=== PATIENT | male | born 1980 | race Caucasian/White ===

== ENCOUNTER 2020-01-21 07:51 | Outpatient (CLI) | payer SELFPAY ==
--- NOTE | 2020-01-21 | US_ITS ---
WS: [id number] ULTRASOUND ABDOMEN CLINICAL INFORMATION: ACQUIRED THROMBOCYTOPENIA COMPARISON: None. FINDINGS: Liver Size: Hepatomegaly Craniocaudal length: 17.2 cm. Echogenicity: Normal. Surface nodularity: None. Mass (size and location): None. Bile ducts Intrahepatic ducts: Normal. Common bile duct diameter: 0.5 cm. Gallbladder Sludge Gallstones: None. Gallbladder sludge: Present Gallbladder wall thickening: None. Pericholecystic fluid: None. Sonographic Skelton sign: Absent. Pancreas Normal as visualized. Spleen Splenomegaly: None. Craniocaudal length: 8.3 cm. Right kidney: Normal. Hydronephrosis: None. Size: 10.5 cm x 4.6 cm x 3.5 cm Left kidney: Normal. Hydronephrosis: None. Size: 10.2 cm x 4.1 cm x 4.1 cm. Abdominal aorta and IVC Visualized portions are normal. Ascites: None. US/US abdomen complete* [id number] IMPRESSION: 1. Hepatomegaly measuring 17.2 CCM. 2. Sludge within the gallbladder. Common bile duct within normal limits at 5.3 mm. 3. No hydronephrosis in either kidney. 4. Spleen is unremarkable.
== END 2020-01-21 07:52 | disposition home or self-care (01) ==
LOC: RADWPI 07:56
PROVIDERS: Family Provider Family Medicine; PCP Nurse Practitioner Family; Visit Provider Nurse Practitioner Family
DX: D69.6 Thrombocytopenia, unspecified (principal); R16.0 Hepatomegaly, not elsewhere classified
CPT/HCPCS: 76700

== ENCOUNTER 2020-01-26 12:35 | Emergency (ER) | payer SELFPAY ==
[2020-01-26 12:45] VITALS: BP 145/90; PULSE 64; RESP 16; TEMP 36.6; O2SAT 98; BMI 18.8
--- NOTE | 2020-01-26 12:49 | W.ED.NAVMDI ---
HPI - Nausea/Vomiting/Diarrhea General: Chief complaint: Nausea/Vomiting/Diarrhea Stated complaint: n/v/d Time Seen by Provider: 01/26/20 12:46 Source: patient Mode of arrival: ambulatory Limitations: no limitations History of Present Illness: HPI Narrative: 39-year-old male he states he ate [employer] last night and has had vomiting since this morning. He states he is vomited multiple episodes mainly food contents. He states he has had diarrhea as well along with abdominal cramping. Denies any fever. Denies any pain. Denies any worsening or improving factors. MD elicited complaint: nausea, vomiting and diarrhea Associated nausea: Yes Associated symtoms: Reports nausea; Denies chest pain, dysuria or headache(s) Review of Systems Const: Denies: fever, chills, body aches or change in appetite Eyes: Denies: blurry vision or eye discomfort ENMT: Denies: throat pain or dental pain Card: Denies: chest pain Resp: Denies: shortness of breath GI: Reports: nausea, vomiting and diarrhea; Denies: abdominal pain : Denies: painful urination Musc: Denies: neck pain or back pain Skin/Breast: Denies: rash Neuro: Denies: headache Psych: Denies: depression Curt/Lymph: Denies: easy bruising All/Imm: Denies: hives PFSH ED PFSH: Social History Smoking and tobacco status: current every day smoker Physical Exam Const: COMMON NORMALS: no apparent distress, oriented x3 and healthy appearing HENMT: COMMON NORMALS: normocephalic and head/scalp atraumatic HEAD & SCALP: normocephalic and atraumatic Eye: COMMON NORMALS: PERRL and EOMs intact bilaterally PUPIL: Yes PERRL Neck/C-Spine: COMMON NORMALS: full ROM and supple Chest: COMMONS NORMALS: inspection of chest normal and palpation of chest normal Resp: COMMON NORMALS: normal respiratory effort, no retractions, no use of accessory muscles and clear to auscultation bilaterally AUSCULTATION: clear to auscultation bilaterally Cardio: COMMON NORMALS: regular rate, regular rhythm and no murmurs RATE: regular rate RHYTHM: regular rhythm GI: COMMON NORMALS: normal to inspection, nondistended, normoactive bowel sounds, soft to palpation, non-tender and no masses PALPATION: Yes soft Extremity: COMMON NORMALS: normal to inspection and full ROM Neuro: COMMON NORMALS: oriented x3, moves all extremities and no focal motor deficits Psych: COMMON NORMALS: mental status grossly normal, thought process normal and cooperative THOUGHT PROCESS: normal thought process Skin: COMMON NORMALS: no rashes or lesions noted and no wounds GENERAL SKIN EXAM: no rashes or lesions noted Course Vital Signs: Vital signs: Vital Signs Temperature 97.9 F 01/26/20 12:45 Pulse Rate 49 L 01/26/20 14:50 Respiratory Rate 16 01/26/20 14:50 Blood Pressure 138/80 01/26/20 14:50 Pulse Oximetry 97 01/26/20 14:50 MDM - Nausea/Vomiting/Diarrhea MDM Narrative: Medical decision making narrative: Patient presents here with nausea and vomiting likely food poisoning. Patient CT scan here is negative. Patient feels improved after IV fluids. His leukocytosis is likely due to dehydration from vomiting. Will prescribe him Zofran he is to follow-up with his primary care doctor in 2 to 4 days and return if worsening. Lab Data: Labs: Lab Results 01/26/20 01/26/20 Range/Units 13:09 13:09 WBC 18.2 H (4.0-10.0) 10^3/ uL RBC 5.08 (4.1-5.3) 10^6/u L Hgb 16.2 (11.7-16.6) g/dL Hct 49.0 (42.0-52.0) % MCV 96.5 H (80-94) fL MCH 31.9 (28.0-34.0) pg MCHC 33.1 (30.0-36.0) g/dL RDW 12.8 (12.1-15.1) % Plt Count 220 (130-400) 10^3/c mm MPV 10.7 H (7.4-10.4) fL Neut % (Auto) 90.8 % Lymph % (Auto) 5.3 % [place] % (Auto) 3.2 % Eos % (Auto) 0.0 % Baso % (Auto) 0.3 % Neut # (Auto) 16.6 H (1.8-7.7) 10^3/u L Lymph # (Auto) 1.0 (0.8-4.8) 10^3/u L [place] # (Auto) 0.6 (0.2-0.9) 10^3/u L Eos # (Auto) 0.0 (0.0-0.8) 10^3/u L Baso # (Auto) 0.1 (0.0-0.1) 10^3/u L Nucleated RBC % (a uto) 0 % Nucleated RBCs # 0.0 /100WBC Sodium 142 (136-145) mmol/L Potassium 4.0 (3.5-5.1) mmol/L Chloride 102 (98-107) mmol/L Carbon Dioxide 24 (22-29) mmol/L Anion Gap 20.0 H (5-19) BUN 15 (6-20) mg/dL Creatinine 0.9 (0.7-1.2) mg/dL GFR Calculation 95.0 (90-130) mL/min Glucose 168 H (65-115) mg/dL Calculated Osmolal ity 294 (285-295) mOsm/k g Calcium 10.5 (8.5-10.5) mg/dL Total Bilirubin 0.4 (0.15-1.2) mg/dL AST 26 (0-40) U/L ALT 24 (0-41) U/L Alkaline Phosphata se 62 (40-130) IU/L Total Protein 7.7 (6.6-8.7) g/dL Albumin 4.9 (3.5-5.2) g/dL Globulin 2.8 (1.3-4.6) g/dL Lipase 11 L (13-60) U/L Imaging Data^: CT Abd/Pel: Radiologist's impression: [address] [address] [address] Scan Report Signed Patient: Jose G Pedraza Unit #: [id number] : 1980 Age/Sex: 39 / M ADM Date: 01/26/20 Loc: ER Room/Bed: Attending Dr: Ordering Provider/Ordering MD: Kailyn Resendez MD Date of Service: 01/26/20 Procedure(s): CT abdomen pelvis w con* [id number] Accession Number(s): [id number] Report Number: [id number] PROCEDURE INFORMATION: Exam: CT Abdomen And Pelvis With Contrast Exam date and time: 01/26/2020 2:01 PM Age: 39 years old Clinical indication: Abdominal pain; Localized; Patient HX: C/O upper abd pain w n/v/d today TECHNIQUE: Imaging protocol: Computed tomography of the abdomen and pelvis with intravenous contrast. Total DLP: 468.77 mGy-cm Radiation optimization: All CT scans at this facility use at least one of these dose optimization techniques: automated exposure control; mA and/or kV adjustment per patient size (includes targeted exams where dose is matched to clinical indication); or iterative reconstruction. Contrast material: OMNI 300; Contrast volume: 95 ml; Contrast route: 18G; COMPARISON: CT abdomen pelvis w con* [id number] 06/24/2017 11:10 AM FINDINGS: Lungs: 4 mm pulmonary nodule in the right lower lobe which appears stable since June 24, 2017. Axial series 2, image 4. No followup needed. Liver: Mild periportal edema with differential diagnosis including but not limited to hepatitis, cholangitis, passive hepatic congestion or volume overload. Prominent inferior vena cava and hepatic veins suggesting possible volume overload versus passive hepatic congestion. Gallbladder and bile ducts: Normal. No calcified stones. No ductal dilation. Pancreas: Normal. No ductal dilation. Spleen: Normal. No splenomegaly. Adrenals: Normal. No mass. Kidneys and ureters: Continued minimal scar in the medial portion lower pole left kidney. Axial series 2, image 28. Stomach and bowel: Unremarkable. No obstruction. No mucosal thickening. Appendix: No evidence of appendicitis. Intraperitoneal space: Unremarkable. No free air. No significant fluid collection. Vasculature: Unremarkable. No abdominal aortic aneurysm. Lymph nodes: Unremarkable. No enlarged lymph nodes. Bladder: Unremarkable as visualized. Reproductive: Unremarkable as visualized. Bones/joints: Unremarkable. No acute fracture. Soft tissues: Unremarkable. CT/CT abdomen pelvis w con* [id number] IMPRESSION: 1. 4 mm pulmonary nodule in the right lower lobe which appears stable since June 24, 2017. Axial series 2, image 4. No followup needed. 2. Mild periportal edema with differential diagnosis including but not limited to hepatitis, cholangitis, passive hepatic congestion or volume overload. 3. Prominent inferior vena cava and hepatic veins suggesting possible volume overload versus passive hepatic congestion. Discharge Plan Discharge Patient Disposition: Home, Self-Care Clinical Impression: Vomiting Qualifiers: Vomiting Intractability: non-intractable Nausea presence: with nausea Condition: Stable Prescriptions: New Zofran 4 mg tablet 4 mg PO QID PRN (Reason: nausea and vomiting) Qty: 14 RF: 0 No Action alprazolam 0.5 mg tablet 0.5 mg PO TID PRN (Reason: Anxiety) RF: 0 paroxetine HCl 20 mg tablet 20 mg PO DAILY RF: 0 Discharge Orders: Discharge Order (Routine); Ordered 01/26/20 Ordered By: Kailyn Resendez Referrals: José Masterson MD [Family Provider] - Emily Hannah FNP-C [Primary Care Provider] - Discharge Diet: Advance as tolerated Discharge Activity: Resume usual activity Patient Instructions: Acute Nausea and Vomiting (ED) Coding Level of Care Code ED Instructor Extension Work for Kennedy Fwd Exam Comprehensive
[2020-01-26 13:18] LABS: Basophils # 0.1 10^3/uL (0.0-0.1); Basophils % 0.3 %; Hemoglobin 16.2 g/dL (11.7-16.6); Lymphocytes % 5.3 %; Mean Corpuscular HGB Conc 33.1 g/dL (30.0-36.0); Mean Corpuscular Hemoglobin 31.9 pg (28.0-34.0); Mean Corpuscular Volume 96.5 fL (80-94); Mean Platelet Volume 10.7 fL (7.4-10.4); Monocytes # 0.6 10^3/uL (0.2-0.9); Monocytes % 3.2 %; Neutrophils # 16.6 10^3/uL (1.8-7.7); Neutrophils % 90.8 %; Nucleated Red Blood Cells % 0 %; Platelet Count 220 10^3/cmm (130-400); Red Blood Count 5.08 10^6/uL (4.1-5.3); Red Cell Distribution Width 12.8 % (12.1-15.1); White Blood Count 18.2 10^3/uL (4.0-10.0)
[2020-01-26] MEDS: ondansetron 2 mg/ML SDV 2 mL 4 MG IVP (13:18)
[2020-01-26] MEDS: sodium chloride 0.9% 1,000 ML 999 ML IV ×2 (13:18→13:52)
[2020-01-26 13:37] LABS: Alanine Aminotransferase 24 U/L (0-41); Albumin Level 4.9 g/dL (3.5-5.2); Alkaline Phosphatase 62 IU/L (40-130); Aspartate Amino Transferase 26 U/L (0-40); Blood Urea Nitrogen 15 mg/dL (6-20); Calcium 10.5 mg/dL (8.5-10.5); Carbon Dioxide 24 mmol/L (22-29); Chloride 102 mmol/L (98-107); Globulin 2.8 g/dL (1.3-4.6); Glucose 168 mg/dL (65-115); Lipase 11 U/L (13-60); Osmolality Calculated 294 mOsm/kg (285-295); Sodium 142 mmol/L (136-145); Total Bilirubin 0.4 mg/dL (0.15-1.2); Total Protein 7.7 g/dL (6.6-8.7)
[2020-01-26 13:47] VITALS: BP 145/89; PULSE 51; RESP 16; O2SAT 98
--- NOTE | 2020-01-26 13:57 | CTR_ITS ---
PROCEDURE INFORMATION: Exam: CT Abdomen And Pelvis With Contrast Exam date and time: 01/26/2020 2:01 PM Age: 39 years old Clinical indication: Abdominal pain; Localized; Patient HX: C/O upper abd pain w n/v/d today TECHNIQUE: Imaging protocol: Computed tomography of the abdomen and pelvis with intravenous contrast. Total DLP: 468.77 mGy-cm Radiation optimization: All CT scans at this facility use at least one of these dose optimization techniques: automated exposure control; mA and/or kV adjustment per patient size (includes targeted exams where dose is matched to clinical indication); or iterative reconstruction. Contrast material: OMNI 300; Contrast volume: 95 ml; Contrast route: 18G; COMPARISON: CT abdomen pelvis w con* [id number] 06/24/2017 11:10 AM FINDINGS: Lungs: 4 mm pulmonary nodule in the right lower lobe which appears stable since June 24, 2017. Axial series 2, image 4. No followup needed. Liver: Mild periportal edema with differential diagnosis including but not limited to hepatitis, cholangitis, passive hepatic congestion or volume overload. Prominent inferior vena cava and hepatic veins suggesting possible volume overload versus passive hepatic congestion. Gallbladder and bile ducts: Normal. No calcified stones. No ductal dilation. Pancreas: Normal. No ductal dilation. Spleen: Normal. No splenomegaly. Adrenals: Normal. No mass. Kidneys and ureters: Continued minimal scar in the medial portion lower pole left kidney. Axial series 2, image 28. Stomach and bowel: Unremarkable. No obstruction. No mucosal thickening. Appendix: No evidence of appendicitis. Intraperitoneal space: Unremarkable. No free air. No significant fluid collection. Vasculature: Unremarkable. No abdominal aortic aneurysm. Lymph nodes: Unremarkable. No enlarged lymph nodes. Bladder: Unremarkable as visualized. Reproductive: Unremarkable as visualized. Bones/joints: Unremarkable. No acute fracture. Soft tissues: Unremarkable. CT/CT abdomen pelvis w con* [id number] IMPRESSION: 1. 4 mm pulmonary nodule in the right lower lobe which appears stable since June 24, 2017. Axial series 2, image 4. No followup needed. 2. Mild periportal edema with differential diagnosis including but not limited to hepatitis, cholangitis, passive hepatic congestion or volume overload. 3. Prominent inferior vena cava and hepatic veins suggesting possible volume overload versus passive hepatic congestion. Radiation Dose CTDIVOL = (mGy): DLP = 468.77 (mGy-cm)
--- NOTE | 2020-01-26 13:58 | PC.NURSE ---
pt. vomiting informed orders for meds recieved
[2020-01-26] MEDS: diphenhydrAMINE 50 mg/mL SDV 1mL IVP (14:00)
[2020-01-26] MEDS: metoclopramide 5 mg/mL SDV 2 mL 10 MG IVP (14:01)
[2020-01-26] MEDS: iohexol 300 mg/mL 100 mL Btl IV (14:14)
[2020-01-26 14:50] VITALS: BP 138/80; PULSE 49; RESP 16; O2SAT 97
[2020-01-26] MEDS: LORazepam 2 mg/mL INJ 1 mL 0.5 MG IVP (15:05)
[2020-01-26 15:08] VITALS: BP 125/78; PULSE 51; RESP 16; O2SAT 98
== END 2020-01-26 15:15 | disposition home or self-care (01) ==
PROVIDERS: Emergency Provider Emergency Medicine; Family Provider Family Medicine; PCP Nurse Practitioner Family
DX: R11.2 Nausea with vomiting, unspecified (principal); F17.210 Nicotine dependence, cigarettes, uncomplicated
CPT/HCPCS: 12345; 36415; 74177; 80053; 83690; 85025; 96361; 96374; 96375; 99282; 99284; J1200; J2060; J2405; J2765; J7030; Q9967

== ENCOUNTER 2020-01-28 18:56 | Inpatient (IN) | payer SELFPAY ==
[2020-01-28 19:00] VITALS: BP 129/87; PULSE 107; RESP 18; TEMP 37.2; O2SAT 97; BMI 16.3
--- NOTE | 2020-01-28 19:06 | CTR_ITS ---
PROCEDURE INFORMATION: Exam: CT Abdomen And Pelvis With Contrast Exam date and time: 01/28/2020 7:14 PM Age: 39 years old Clinical indication: Nausea and vomiting and other: Diarrhea; Abdominal pain; Localized; Upper TECHNIQUE: Imaging protocol: Computed tomography of the abdomen and pelvis with intravenous contrast. Total DLP: 500.66 mGy-cm Radiation optimization: All CT scans at this facility use at least one of these dose optimization techniques: automated exposure control; mA and/or kV adjustment per patient size (includes targeted exams where dose is matched to clinical indication); or iterative reconstruction. Contrast material: OMNI 300; Contrast volume: 95 ml; Contrast route: IV; COMPARISON: CT abdomen pelvis w con* [id number] 01/26/2020 2:12 PM FINDINGS: Lungs: Stable 4 mm right lower lobe nodule. Liver: Stable subcentimeter hypodensities in the dome and peripheral right liver lobe, too small to characterize. Gallbladder and bile ducts: Hyperdense contrast or sludge in the gallbladder. No visible wall thickening. Pancreas: Normal. No ductal dilation. Spleen: Normal. No splenomegaly. Adrenals: Normal. No mass. Kidneys and ureters: Stable subcentimeter low-density in the left kidney. The right kidney is normal. Stomach and bowel: Moderate fluid distention of the stomach with an air-fluid level. Appendix: No evidence of appendicitis. Intraperitoneal space: Unremarkable. No free air. No significant fluid collection. Vasculature: Unremarkable. No abdominal aortic aneurysm. Lymph nodes: Unremarkable. No enlarged lymph nodes. Bladder: Unremarkable as visualized. Reproductive: Unremarkable as visualized. Bones/joints: Unremarkable. No acute fracture. Soft tissues: Unremarkable. CT/CT abdomen pelvis w con* [id number] IMPRESSION: 1. Moderate fluid in stomach could represent gastroparesis or gastroenteritis. 2. Stable subcentimeter hypodensities in the liver and left kidney. These are too small to characterize but require no follow-up. 3. Stable 4 mm right lower lobe nodule. This is considered benign and requires no follow-up. Radiation Dose CTDIVOL = (mGy): DLP = 500.66 (mGy-cm)
--- NOTE | 2020-01-28 19:06 | XR_ITS ---
WS: [id number] CHEST XRAY TECHNIQUE: Portable chest. CLINICAL INFORMATION: effusion COMPARISON: None. FINDINGS: Heart: Normal cardiac silhouette. Lungs: Lungs are clear. No consolidation or pleural effusion. Hyperinflation. Bones: Normal visualized bony structures. XR/XR chest 1V portable [id number] IMPRESSION: Normal chest
--- NOTE | 2020-01-28 19:13 | W.ED.ABDPA2 ---
HPI - Abdominal Pain General: Chief Complaint: Abdominal Pain Stated Complaint: abd pain Time Seen by Provider: 01/28/20 19:11 [facility] ED PFSH: Social History Smoking and tobacco status: current every day smoker Course Vital Signs: Vital signs: Vital Signs Temperature 99.0 F 01/28/20 19:00 Pulse Rate 107 H 01/28/20 19:00 Respiratory Rate 18 01/28/20 19:00 Blood Pressure 129/87 01/28/20 19:00 Pulse Oximetry 97 01/28/20 19:00 Discharge Plan Discharge Prescriptions: No Action alprazolam 0.5 mg tablet 0.5 mg PO TID PRN (Reason: Anxiety) RF: 0 paroxetine HCl 20 mg tablet 20 mg PO DAILY RF: 0 ondansetron HCl [Zofran] 4 mg tablet 4 mg PO QID PRN (Reason: nausea and vomiting) Qty: 14 RF: 0 Coding Level of Care Code ED [employer] Supervisor for Kennedy Stokes
--- NOTE | 2020-01-28 19:26 | ED_ITS ---
HPI - Abdominal Pain General: Chief Complaint: Abdominal Pain Stated Complaint: abd pain Time Seen by Provider: 01/28/20 19:11 Source: patient Mode of arrival: ambulatory Limitations: no limitations History of Present Illness: HPI narrative: 39-year-old male who has had vomiting over the last 5 days. He states he is also had abdominal cramping that is diffuse in nature. Patient states he is unable to tolerate any thing by mouth. Patient was seen here Monday and prescribed Zofran and has had no improvement. Saw by his PCP today and had hypokalemia and was still unable to tolerate any thing by mouth. MD elicited complaint: abdominal pain Pertinent past history: none Onset (ago): day(s) Pain Consistency: constant Severity: mild Exacerbating factors: nothing Relieving factors: nothing Associated Symptoms: Reports nausea and vomiting; Denies chills, dysuria and fever(s) Review of Systems Const: Denies: fever, chills, body aches or change in appetite Eyes: Denies: blurry vision or eye discomfort ENMT: Denies: throat pain or dental pain Card: Denies: chest pain Resp: Denies: shortness of breath GI: Reports: abdominal pain, nausea and vomiting : Denies: painful urination Musc: Denies: neck pain or back pain Skin/Breast: Denies: rash Neuro: Denies: headache Psych: Denies: depression Curt/Lymph: Denies: easy bruising All/Imm: Denies: hives PFS ED PFSH: Medical History (Updated 01/28/20 @ 21:22 by Jeimy Young MD) Anxiety History of migraine History of seizures Surgical History (Updated 01/28/20 @ 21:21 by Jeimy Young MD) No pertinent past surgical history Family History (Updated 01/28/20 @ 21:19 by Jeimy Young MD) Mother Ovarian cancer Father Melanoma Social History (Updated 01/28/20 @ 21:19 by Jeimy Young MD) Smoking and tobacco status: current every day smoker Alcohol intake: current Alcohol use comment: occassional Substance/Drug Use: current Substance/Drug use type: Marijuana Physical Exam Const: COMMON NORMALS: no apparent distress, oriented x3 and healthy appearing HENMT: COMMON NORMALS: normocephalic and head/scalp atraumatic HEAD & SCALP: normocephalic and atraumatic Eye: COMMON NORMALS: PERRL and EOMs intact bilaterally PUPIL: Yes PERRL Neck/C-Spine: COMMON NORMALS: full ROM and supple Chest: COMMONS NORMALS: inspection of chest normal and palpation of chest normal Resp: COMMON NORMALS: normal respiratory effort, no retractions, no use of accessory muscles and clear to auscultation bilaterally AUSCULTATION: clear to auscultation bilaterally Cardio: COMMON NORMALS: regular rate, regular rhythm and no murmurs RATE: regular rate RHYTHM: regular rhythm GI: COMMON NORMALS: normal to inspection, nondistended, normoactive bowel sounds, soft to palpation, non-tender and no masses PALPATION: Yes soft Extremity: COMMON NORMALS: normal to inspection and full ROM Neuro: COMMON NORMALS: oriented x3, moves all extremities and no focal motor deficits Psych: COMMON NORMALS: mental status grossly normal, thought process normal and cooperative THOUGHT PROCESS: normal thought process Skin: COMMON NORMALS: no rashes or lesions noted and no wounds GENERAL SKIN EXAM: no rashes or lesions noted Course Vital Signs: Vital signs: Vital Signs Temperature 99.0 F 01/28/20 19:00 Pulse Rate 107 H 01/28/20 19:00 Respiratory Rate 17 01/28/20 20:13 Blood Pressure 129/87 01/28/20 19:00 Pulse Oximetry 99 01/28/20 20:13 MDM - Abdominal Pain MDM Narrative: Medical decision making narrative: Patient presents here with intractable vomiting along with mild hypokalemia. Patient CT scan here is negative. Patient feels slightly improved here after IV nausea medicine and pain medicine. Patient has failed outpatient treatment with Zofran. I spoke to the hospitalist and will admit for further treatment. Lab Data: Labs: Lab Results 01/28/20 01/28/20 Range/Units 19:47 19:47 WBC 15.0 H (4.0-10.0) 10^3/ uL RBC 4.99 (4.1-5.3) 10^6/u L Hgb 16.6 (11.7-16.6) g/dL Hct 46.5 (42.0-52.0) % MCV 93.2 (80-94) fL MCH 33.3 (28.0-34.0) pg MCHC 35.7 (30.0-36.0) g/dL RDW 12.6 (12.1-15.1) % Plt Count 194 (130-400) 10^3/c mm MPV 10.6 H (7.4-10.4) fL Neut % (Auto) 81.1 % Lymph % (Auto) 10.7 % [place] % (Auto) 7.7 % Eos % (Auto) 0.0 % Baso % (Auto) 0.1 % Neut # (Auto) 12.2 H (1.8-7.7) 10^3/u L Lymph # (Auto) 1.6 (0.8-4.8) 10^3/u L [place] # (Auto) 1.2 H (0.2-0.9) 10^3/u L Eos # (Auto) 0.0 (0.0-0.8) 10^3/u L Baso # (Auto) 0.0 (0.0-0.1) 10^3/u L Nucleated RBC % (a uto) 0 % Nucleated RBCs # 0.0 /100WBC Sodium 133 L (136-145) mmol/L Potassium 3.2 L (3.5-5.1) mmol/L Chloride 85 L (98-107) mmol/L Carbon Dioxide 30 H (22-29) mmol/L Anion Gap 21.2 H (5-19) BUN 17 (6-20) mg/dL Creatinine 0.9 (0.7-1.2) mg/dL GFR Calculation 95.0 (90-130) mL/min Glucose 143 H (65-115) mg/dL Calculated Osmolal ity 275 L (285-295) mOsm/k g Calcium 9.5 (8.5-10.5) mg/dL Total Bilirubin 0.5 (0.15-1.2) mg/dL AST 25 (0-40) U/L ALT 19 (0-41) U/L Alkaline Phosphata se 58 (40-130) IU/L Total Protein 7.2 (6.6-8.7) g/dL Albumin 4.4 (3.5-5.2) g/dL Globulin 2.8 (1.3-4.6) g/dL Lipase 296 H (13-60) U/L Imaging Data ^: CT Abd/Pel: Attestation: I personally reviewed and interpreted this imaging study as follows: Radiologist's impression: [address] [place] [address] CT Scan Report Signed Patient: Jose G Pedraza Unit #: [id number] : 1980 Age/Sex: 39 / M ADM Date: 01/28/20 Loc: ER Room/Bed: Attending Dr: Ordering Provider/Ordering MD: Kailyn Resendez MD Date of Service: 01/28/20 Procedure(s): CT abdomen pelvis w con* [id number] Accession Number(s): [id number] Report Number: [id number] PROCEDURE INFORMATION: Exam: CT Abdomen And Pelvis With Contrast Exam date and time: 01/28/2020 7:14 PM Age: 39 years old Clinical indication: Nausea and vomiting and other: Diarrhea; Abdominal pain; Localized; Upper TECHNIQUE: Imaging protocol: Computed tomography of the abdomen and pelvis with intravenous contrast. Total DLP: 500.66 mGy-cm Radiation optimization: All CT scans at this facility use at least one of these dose optimization techniques: automated exposure control; mA and/or kV adjustment per patient size (includes targeted exams where dose is matched to clinical indication); or iterative reconstruction. Contrast material: OMNI 300; Contrast volume: 95 ml; Contrast route: IV; COMPARISON: CT abdomen pelvis w con* [id number] 01/26/2020 2:12 PM FINDINGS: Lungs: Stable 4 mm right lower lobe nodule. Liver: Stable subcentimeter hypodensities in the dome and peripheral right liver lobe, too small to characterize. Gallbladder and bile ducts: Hyperdense contrast or sludge in the gallbladder. No visible wall thickening. Pancreas: Normal. No ductal dilation. Spleen: Normal. No splenomegaly. Adrenals: Normal. No mass. Kidneys and ureters: Stable subcentimeter low-density in the left kidney. The right kidney is normal. Stomach and bowel: Moderate fluid distention of the stomach with an air-fluid level. Appendix: No evidence of appendicitis. Intraperitoneal space: Unremarkable. No free air. No significant fluid collection. Vasculature: Unremarkable. No abdominal aortic aneurysm. Lymph nodes: Unremarkable. No enlarged lymph nodes. Bladder: Unremarkable as visualized. Reproductive: Unremarkable as visualized. Bones/joints: Unremarkable. No acute fracture. Soft tissues: Unremarkable. CT/CT abdomen pelvis w con* [id number] IMPRESSION: 1. Moderate fluid in stomach could represent gastroparesis or gastroenteritis. 2. Stable subcentimeter hypodensities in the liver and left kidney. These are too small to characterize but require no follow-up. 3. Stable 4 mm right lower lobe nodule. This is considered benign and requires no follow-up. Discharge Plan Discharge Patient Disposition: Admitted As Inpatient Admit Provider: Jeimy Young Clinical Impression: Vomiting Condition: Stable Prescriptions: No Action alprazolam 0.5 mg tablet 0.5 mg PO TID PRN (Reason: Anxiety) RF: 0 paroxetine HCl 20 mg tablet 20 mg PO DAILY RF: 0 Referrals: Emily Hannah FNP-C [Primary Care Provider] - José Masterson MD [Family Provider] - Coding Level of Care Code ED [employer] Supervisor for [employer]g Fwd Exam Comprehensive
[2020-01-28] MEDS: iohexol 300 mg/mL 100 mL Btl IV (19:34)
[2020-01-28] MEDS: sodium chloride 0.9% 1,000 ML 999 ML IV (19:44)
[2020-01-28] MEDS: LORazepam 2 mg/mL INJ 1 mL 1 MG IVP (19:51)
[2020-01-28 19:59] LABS: Basophils % 0.1 %; Hematocrit 46.5 % (42.0-52.0); Hemoglobin 16.6 g/dL (11.7-16.6); Lymphocytes # 1.6 10^3/uL (0.8-4.8); Lymphocytes % 10.7 %; Mean Corpuscular HGB Conc 35.7 g/dL (30.0-36.0); Mean Corpuscular Hemoglobin 33.3 pg (28.0-34.0); Mean Corpuscular Volume 93.2 fL (80-94); Mean Platelet Volume 10.6 fL (7.4-10.4); Monocytes # 1.2 10^3/uL (0.2-0.9); Monocytes % 7.7 %; Neutrophils # 12.2 10^3/uL (1.8-7.7); Neutrophils % 81.1 %; Nucleated Red Blood Cells % 0 %; Platelet Count 194 10^3/cmm (130-400); Red Blood Count 4.99 10^6/uL (4.1-5.3); Red Cell Distribution Width 12.6 % (12.1-15.1)
[2020-01-28 20:09] LABS: Albumin Level 4.4 g/dL (3.5-5.2); Alkaline Phosphatase 58 IU/L (40-130); Blood Urea Nitrogen 17 mg/dL (6-20); Calcium 9.5 mg/dL (8.5-10.5); Carbon Dioxide 30 mmol/L (22-29); Chloride 85 mmol/L (98-107); Globulin 2.8 g/dL (1.3-4.6); Glucose 143 mg/dL (65-115); Lipase 296 U/L (13-60); Osmolality Calculated 275 mOsm/kg (285-295); Sodium 133 mmol/L (136-145); Total Bilirubin 0.5 mg/dL (0.15-1.2); Total Protein 7.2 g/dL (6.6-8.7)
[2020-01-28] MEDS: ondansetron 2 mg/ML SDV 2 mL 4 MG IVP (20:12)
[2020-01-28 20:13] VITALS: RESP 17; O2SAT 99
[2020-01-28] MEDS: HYDROmorphone 1 mg/mL INJ 1 mL IVP (20:13)
[2020-01-28 21:04] LABS: Anion Gap 21.2 (5-19)
[2020-01-28 21:05] LABS: Potassium 3.2 mmol/L (3.5-5.1)
[2020-01-28 21:06] LABS: Alanine Aminotransferase 19 U/L (0-41); Aspartate Amino Transferase 25 U/L (0-40)
--- NOTE | 2020-01-28 21:11 | ECG_ITS ---
Measurements Intervals [place] Rate: 60 P: 74 [place]: 127 QRS: 86 QRSD: 101 T: 78 QT: 359 QTc: [address] & T-WAVE ABNORMALITY No previous ECG available for comparison Electronically Signed On 01-30-2020 6:38:23 CDT by Boaz Degroot M.D. [email or web address]
--- NOTE | 2020-01-28 21:18 | P.HP_ITS ---
Providers/Chief Complaint Admitting Physician: Jeimy Young Primary Care Provider: Emily Hannah DRYWALL APPLICATION SUPERVISOR-C Chief Complaint: abd pain History of Present Illness Jose G Pedraza is a 39 year old male who presented to the emergency room with intractable nausea and vomiting, abdominal discomfort and diarrhea. Symptoms have been going on to some degree for the last couple of weeks. He saw his primary care provider who gave him a prescription for some Carafate. He has not taken any H2 blockers or PPIs. This past weekend on Monday, he had acute worsening in which his nausea became overwhelming and he had about 50 episodes of vomiting by his report. Primarily food and then clear liquid. This was associated with 2 episodes of loose watery stools. They reported indigestion, frequent hiccups and regurgitation, generalized abdominal discomfort, sore throat. He was seen in the emergency room. He described his symptoms as starting after trying to eat some [employer]. He was given a prescription for Zofran but has not had it filled. He saw his primary care provider today for persistent symptoms and was noted to have a low potassium. He was sent to the emergency room for evaluation and admission. He has been trying to drink some Pedialyte. Has not tried to eat any heavy foods since the [employer] on Monday. Admits that he is not able to keep much down. He has not had any other Carafate for about a week due to the symptoms. Urine output is decreased and he describes dark smelly urine but he has not had any dysuria. Denies any hematemesis or hematochezia. He describes similar episodes occurring every couple of months for the last few years. He denies hospitalizations elsewhere. The last time he was hospitalized here with similar symptoms was back in 2017. He has had several ER visits with similar complaints however. Back in 2017 he had been taking ibuprofen and other NSAIDs for migraine headaches and clinically was felt to have NSAID induced gastritis. He was treated with a PPI. At that time TSH was checked and was at 0.546. Lipase was normal at 90. Was were normal he had gallbladder ultrasound which was unremarkable. Recommendation was for arrangements for an EGD if symptoms persisted but he has not had this done. Most of the time, if he comes to the emergency room and get some fluids and other electrolyte replacement, anti-me dics, he feels better. Symptoms will last anywhere from a few days to a couple of weeks. He has never had a definitive diagnosis. In talking with him, he previously drank a significant amount of alcohol for quite a few years, fifth a day. Has never been diagnosed with pancreatitis nor had imaging suggestive of such. Since a young age he has smoked marijuana frequently though is currently only using about twice a week. He denies recurrent NSAID use. Only medications he takes are those listed. He does smoke. He describes weight loss of 15 to 20 pounds since October but also mentions that his weight will vary quite a bit when he is able to take an oral intake versus when he is not. He reports always being thirsty. No personal history or evaluation for diabetes. He does have a history of migraines. He reports that his girlfriend/fianc? thinks that onset of vomiting symptoms may be associated with onset of intermittent migraines but he himself has never noted specifically that pattern. Patient continued to vomit in the emergency room despite receiving fluid, Zofran, Dilaudid, Ativan and morphine. Given his intractable symptoms despite attempts at both outpatient and ED management, he is being admitted for further care and evaluation as indicated. Review of Systems Const: Reports: change in weight; Denies: fever or chills Eyes: Denies: change in vision ENMT: Reports: throat pain, dry mouth and other (Bad teeth); Denies: oral sores/lesions or nasal congestion Card: Denies: chest pain or palpitations Resp: Denies: shortness of breath or productive cough GI: Reports: abdominal pain, nausea, vomiting, heartburn/indigestion, diarrhea (Initially described as loose stools), constipation (Last bowel movement 3 days ago but attributes to lack of oral intake no hard stool), belching and blood in stool; Denies: difficulty swallowing or fatty stool : Reports: decreased urine ouput and other (Darker urine); Denies: painful urination or urinary frequency Musc: Denies: joint pain, joint swelling, redness or joint warmth Skin/Breast: Denies: rash or sores Neuro: Reports: headache; Denies: numbness in extremities or weakness in extremities Psych: Reports: anxiety; Denies: depression Endo: Reports: excessive thirst, tired all the time and cold intolerance; Denies: excessive sweating Curt/Lymph: Denies: easy bruising or easy bleeding Medications/Allergies Home Medications Medication Instructions Recorded Confirmed Last Taken Type alprazolam 0.5 mg PO TID PRN 01/26/20 01/28/20 01/25/20 History paroxetine HCl 20 mg PO DAILY 01/26/20 01/28/20 Unknown History sucralfate [Carafate] 1 g PO BID 01/28/20 01/28/20 01/21/20 History Allergies Allergy/AdvReac Type Severity Reaction Status Date / Time carbamazepine [From Tegretol] Allergy ALGY-Rash Verified 01/28/20 19:06 PFSH Acute PFSH: Medical History (Updated 01/28/20 @ 22:45 by Jeimy Young MD) Anxiety paxil and prn xanax History of migraine intermittent, ~ once a month, Tylenol and quiet History of seizures no meds now. last ~7 yrs ago Surgical History (Updated 01/28/20 @ 21:21 by Jeimy Young MD) No pertinent past surgical history Family History (Updated 01/28/20 @ 21:44 by Jeimy Young MD) Mother Ovarian cancer Father Melanoma Social History (Updated 01/28/20 @ 21:49 by Jeimy Young MD) Smoking and tobacco status: current every day smoker cigarettes [ Other c igarette details: 10/10 ppd ] Alcohol intake: former Former alcohol use details: quit 8 months ago, former 5th day for years Substance/Drug Use: current Substance/Drug use frequency: few times a week Substance/Drug use type: Marijuana Vitals/I&O/Wt Last Vital Signs Temp 99.0 F 01/28/20 19:00 Pulse 107 H 01/28/20 19:00 Resp 17 01/28/20 20:13 BP 129/87 01/28/20 19:00 Pulse Ox 99 01/28/20 20:13 Weight last 48 hrs Weight 53.07 kg Physical Exam Const: COMMON NORMALS: oriented x3 and alert NUTRITIONAL APPEARANCE: thin HENMT: COMMON NORMALS: normocephalic and head/scalp atraumatic Eye: COMMON NORMALS: PERRL and EOMs intact bilaterally Neck/C-Spine: COMMON NORMALS: supple Resp: COMMON NORMALS: normal respiratory effort, no use of accessory muscles and clear to auscultation bilaterally Cardio: COMMON NORMALS: regular rhythm, no gallops, no murmurs and no rub RATE: regular rate and tachycardic GI: INSPECTION: Yes normal to inspection and No abdominal distension AUSCULTATION: Yes normoactive bowel sounds PALPATION: Yes soft, Yes tender Details: other (Mild epigastric), No guarding, Yes no hepatosplenomegaly and No rebound tenderness present Extremity: COMMON NORMALS: no clubbing, cyanosis or edema Neuro: COMMON NORMALS: moves all extremities and no sensory deficits noted SPEECH: speech normal Psych: COMMON NORMALS: thought process normal and cooperative Skin: COMMON NORMALS: no rashes or lesions noted and no mottling NARRATIVE SKIN EXAM: Multiple tattoos Data : 01/28/20 19:47 01/28/20 19:47 Other Labs: Laboratory Tests 01/28/20 19:[address] Abd/Pel: I personally reviewed and interpreted this imaging study as follows: My impression: Normal cxr with no infiltrates, normal heart size, most distal costophrenic angles cut off bilaterally Radiologist's impression: COMPARISON: CT abdomen pelvis w con* [id number] 01/26/2020 2:12 PM FINDINGS: Lungs: Stable 4 mm right lower lobe nodule. Liver: Stable subcentimeter hypodensities in the dome and peripheral right liver lobe, too small to characterize. Gallbladder and bile ducts: Hyperdense contrast or sludge in the gallbladder. No visible wall thickening. Pancreas: Normal. No ductal dilation. Spleen: Normal. No splenomegaly. Adrenals: Normal. No mass. Kidneys and ureters: Stable subcentimeter low-density in the left kidney. The right kidney is normal. Stomach and bowel: Moderate fluid distention of the stomach with an air-fluid level. Appendix: No evidence of appendicitis. Intraperitoneal space: Unremarkable. No free air. No significant fluid collection. Vasculature: Unremarkable. No abdominal aortic aneurysm. Lymph nodes: Unremarkable. No enlarged lymph nodes. Bladder: Unremarkable as visualized. Reproductive: Unremarkable as visualized. Bones/joints: Unremarkable. No acute fracture. Soft tissues: Unremarkable. CT/CT abdomen pelvis w con* [id number] IMPRESSION: 1. Moderate fluid in stomach could represent gastroparesis or gastroenteritis. 2. Stable subcentimeter hypodensities in the liver and left kidney. These are too small to characterize but require no follow-up. 3. Stable 4 mm right lower lobe nodule. This is considered benign and requires no follow-up. A&P Assessment and plan (1) Vomiting: This has been a recurrent problem for the patient for several years. He has several possible etiologies including undiagnosed chronic pancreatitis related to former heavy alcohol use although no chronic changes on CT imaging or prior elevated lipases and available records. He chronically uses marijuana and so THC associated cyclical vomiting could be considered. He has a history of chronic migraines so do have to keep in mind cyclical vomiting associated with those. His fianc?e/girlfriend has thought at times that symptom onset might be associated with the occurrences of his migraines. He does describe significant headache the day before this particular event started but has not had any further headaches since then. And could have some chronic GI irritation related to this. Gastritis or gastroenteritis for other causes is a consideration, but given the recurrent nature I think this is less likely. Blood sugars are elevated today and look to have been mildly elevated in the past. Most likely this is secondary to acute presentations but need to keep in mind possibility of undiagnosed diabetes and associated gastroparesis or other autonomic process. Status: Acute Qualifiers: Nausea presence: with nausea Vomiting Intractability: intractable Vomiting type: unspecified Qualified Code(s): R11.2 - Nausea with vomiting, unspecified (2) Dehydration: Evident on physical exam as well as on laboratory studies, secondary to intractable vomiting. Has anticipated electrolyte abnormalities including hypokalemia, hyponatremia and hypochloremia. Status: Acute (3) Leukocytosis: Most likely reactive but urinalysis is still pending Status: Acute (4) Anxiety: Chronically on Paxil and as needed Xanax Status: Chronic (5) Marijuana use: Approximately twice a week Status: Chronic (6) Nicotine dependence, cigarettes, uncomplicated: Half a pack a day, not currently interested in quitting Status: Chronic Additional A&P Information Elevated lipase which which may be due to repeated vomiting are indicative of chronic pancreatitis Elevated blood sugar without history of diabetes Weight loss Inpatient admission given repeated symptoms despite attempts at management between primary care provider and emergency room IV fluids including potassium replacement Anti-emetics Clear liquids only presently with low acid H2 nohelia for now Continue Carafate but changed to liquid Pain control if needed Check magnesium and phosphorus Recheck lipase in the morning along with LFTs Consider gallbladder ultrasound pending results and clinical course Check lipid panel with triglycerides Check hemoglobin A1c Check TSH Follow-up pending urinalysis Monitor for recurrent classic migraine symptoms Continue as needed Xanax and Paxil Nicotine patch if needed Low risk for VTE Supportive care otherwise I had long conversation with patient about possible etiologies as noted above. I encourage continued alcohol cessation and consideration for marijuana cessation as well. Explained the studies being checked above and the reasons for them and gave him an opportunity to ask questions. Would potentially benefit from gastric emptying study and endoscopy at some point in time. Full code Anticipate discharge home probably with some additional medications Attestations Medical Necessity Statement*: Anticipated stay greater than 2 midnights in this patient with intractable GI symptoms as noted. Plans are as indicated. He has failed attempts at outpatient management. Coding Level of Care Code Acute Mucker Operator for Lizettg Fwd Diagnoses Vomiting R11.2 Nausea presence: with nausea Vomiting Intractability: intractable Vomiting type: unspecified Dehydration E86.0 Leukocytosis D72.829 Anxiety F41.9 Marijuana use F12.90 Nicotine dependence, cigarettes, uncomplicated F17.210
[2020-01-28 22:11] LABS: Add Urine Microscopic? YES; Bilirubin Urine Neg (NEGATIVE); Blood Urine 2+ (Negative); Glucose Urine UA Norm (Normal); Ketones Urine Negative (Negative); Leukocyte Esterase Urine Negative (Negative); Nitrate Urine Negative (Negative); Protein Urine 1+ (Negative); RBC Urine 0-4 /hpf (0-2); Squamous Epithelial Cell Urine 0-4 (0-5); Sulfosalicylic Acid Urine Positive (Negative); Urine Appearance Cloudy (CLEAR); Urine Color Yellow (Yellow); Urobilinogen Urine Norm (Negative); WBC Urine 25-40 /hpf (0-5); pH Urine 8 (5-7)
[2020-01-28 22:12] LABS: Add Urine Culture? Yes; Bacteria Urine 3+
[2020-01-28 22:15] VITALS: BP 155/84; PULSE 104; RESP 18; O2SAT 98
[2020-01-28 22:27] VITALS: RESP 18; O2SAT 98
[2020-01-28] MEDS: morphine 4 mg/mL SDV 1 mL IVP ×2 (22:27→23:23)
[2020-01-28 22:50] VITALS: BP 155/84; PULSE 104; RESP 18; TEMP 37.2
[2020-01-28 23:23] VITALS: RESP 18
[2020-01-28] MEDS: sodium chlor 0.9% + KCl 20 mEq 20 MEQ/1,000 ML BAG 125 MEQ IV (23:23)
[2020-01-28] MEDS: famotidine 20 mg/2 mL INJ IVP (23:24)
[2020-01-29] VITALS (8 sets, daily range): BP systolic 134–163; BP diastolic 70–95; PULSE 53–86; RESP 16–18; TEMP 36.7–37.3; O2SAT 94–98
[2020-01-29 05:36] LABS: Estmated Average Glucose 108; Hemoglobin A1C 5.4 % (4.0-6.0)
[2020-01-29 05:52] LABS: Chol HDL Ratio 5.03 mg/dL (1.0-5.00); Cholesterol 151 mg/dL (0-200); HDL Cholesterol 30 mg/dL (60-100); LDL Cholesterol Calculated 101 mg/dL (50-129); LDL HDL Ratio 3.37 RATIO (0.00-3.22); Triglycerides 101 mg/dL (0-150)
[2020-01-29 05:53] LABS: Alanine Aminotransferase 15 U/L (0-41); Albumin Level 4.2 g/dL (3.5-5.2); Alkaline Phosphatase 55 IU/L (40-130); Anion Gap 13.5 (5-19); Aspartate Amino Transferase 16 U/L (0-40); Blood Urea Nitrogen 14 mg/dL (6-20); Calcium 9.3 mg/dL (8.5-10.5); Carbon Dioxide 30 mmol/L (22-29); Chloride 98 mmol/L (98-107); Globulin 2.4 g/dL (1.3-4.6); Glomerular Filtration Rate 126.9 mL/min (90-130); Glucose 104 mg/dL (65-115); Osmolality Calculated 283 mOsm/kg (285-295); Potassium 3.5 mmol/L (3.5-5.1); Sodium 138 mmol/L (136-145); Total Bilirubin 0.6 mg/dL (0.15-1.2); Total Protein 6.6 g/dL (6.6-8.7)
[2020-01-29 05:54] LABS: Lipase 78 U/L (13-60); Magnesium 1.8 mg/dL (1.7-2.3); Phosphorus 2.5 mg/dL (2.5-4.5)
[2020-01-29] MEDS: sucralfate 1 gm/10 mL Oral Liq UDC PO ×4 (06:01→19:41)
[2020-01-29 06:03] LABS: Thyroid Stimulating Hormone 1.02 uIU/mL (0.27-4.20)
[2020-01-29] MEDS: sodium chlor 0.9% + KCl 20 mEq 20 MEQ/1,000 ML BAG 125 MEQ IV (07:27)
[2020-01-29] MEDS: PARoxetine 20 mg Tablet PO (09:22)
--- NOTE | 2020-01-29 09:39 | PC.CHAP ---
Pastoral Care Encounter/Spiritual Assessment Type of Contact [] Declined low heel builder visit [] Patient/Family/Request visit [] Outpatient visit [] Follow-up visit [] Physician referral [] Code/Alert [x] Routine visit [] Staff referral [] Actively dying [] Patient sleeping [] Family support [] [] Out of room [] Palliative care [] [] Receiving care in room [] Pre-surgical visit [] Trauma [] Long length of stay [] ICU visit [] Other: Relational/Emotional Strength [] Patient feels connected with others/family/visitors/staff [] Distress [] Loneliness/isolation [] Abandonment Spirituality of Patient [] Person of [place] [] Attends Islam of their [place] [] Believes in Prayer [] Reads Bible or Tenriism materials [] There are Spiritual issues to be addressed Head Host/Hostess Interventions [x] Prayer [] Active listening [] Non-anxious presence [] Spiritual/emotional support [] Crisis/trauma care [] Spiritual counseling [] Bereavement support [] Provided bereavement packet [] Provided Bible/devotional materials [] Provided toy/stuffed animal, coloring book to patient or family member [] Provided Communion [] Anointing/[place] [] Salvation [x] Completed spiritual assessment [] Other: Impact on Illness or Injury [] Angry [] Fearful [] Anxious [] Often cries [] Exhaustion [] Unable to work [] Unable to attend latter day [] Unable to walk/stand [] Unable to read [] Unable to drive [] Unable to eat/drink [] Unable to sleep [] Unable to be with family [] Patient intubated [] Other: Summary Patient requesting rest. Time spent with patient 5 min
[2020-01-29] MEDS: famotidine 20 mg/2 mL INJ IVP ×2 (10:20→19:41)
[2020-01-29 11:30] LABS: H. Pylori IgG Antibody Negative (Negative)
[2020-01-29 11:33] LABS: Alcohol Level < 10 mg/dL (0-10)
--- NOTE | 2020-01-29 11:42 | PM.PN ---
Subjective Subjective: Interval history: H&P and labs noted. This morning on examination patient is lying comfortably in bed. States he had clear liquid diet and did not have any vomiting though was very nauseous. He denies of having any headache any abdominal pain any diarrhea any palpitations at the moment. States he feels drowsy on sitting up. Vitals/I&O/Wt Last Vital Signs Temp 99.2 F 01/29/20 11:23 Pulse 75 01/29/20 11:23 Resp 16 01/29/20 11:23 BP 134/86 01/29/20 11:23 Pulse Ox 94 01/29/20 11:23 01/28/20 01/29/20 01/29/20 22:59 06:59 14:59 Intake Total 50 / 50 1120 / 1120 Output Total 300 / 300 Balance 50 / 50 820 / 820 Weight last 48 hrs Weight 53.07 kg Physical Exam Narrative: EXAM NARRATIVE: General: No acute distress, AO x3, dehydrated, cachectic HEENT: PERRLA, pupils bilaterally equal and reactive Chest: Normal vesicular breath sounds, no added sounds, equal good air entry bilaterally CVS: S1-S2 regular, no murmurs, no tachycardia, no gallops, no rubs Abdomen: Soft, mild tenderness in epigastric area, no organomegaly, bowel sounds present Neuro: No focal deficits, no facial deformity, AO x3, power 5/5 in all limbs Data : 01/28/20 19:47 01/29/20 05:00 A&P Assessment and plan (1) Vomiting: Status: Acute Qualifiers: Nausea presence: with nausea Vomiting Intractability: intractable Vomiting type: unspecified Qualified Code(s): R11.2 - Nausea with vomiting, unspecified (2) Dehydration: Status: Acute (3) Leukocytosis: Most likely reactive but urinalysis is still pending Status: Acute (4) Anxiety: Chronically on Paxil and as needed Xanax Status: Chronic (5) Marijuana use: Approximately twice a week Status: Chronic (6) Nicotine dependence, cigarettes, uncomplicated: Half a pack a day, not currently interested in quitting Status: Chronic Additional A&P Information Intractable vomiting: Unknown etiology. Recurrent episodes. Several possible differential diagnosis which include possible chronic pancreatitis, chronic gastritis, cyclic vomiting associated with chronic marijuana use, complicated migraine. Liver functions are within normal limits along with alkaline phosphatase, CT abdomen done on admission did not show any liver pathology other than few hypodensities which were too small to be characterized. For chronic pancreatitis. Lipase is trending down. CT abdomen was negative for any pancreatic abnormality. Lipid panel and A1c results appreciated. For chronic gastritis. Check H. pylori antigen. Continue with famotidine IV and sucralfate with meals. For cyclic vomiting syndrome. Check urine drug studies added onto the sample from last night. Check hepatitis panel, HIV. As A1c is within normal limits most likely is not related to diabetic gastroparesis. Continue with Zofran and Phenergan as needed along with sucralfate with meals and famotidine twice daily. Advance to full liquid diet and see how patient does. Most likely patient would need a very slow meal advances. History of alcohol abuse: Check alcohol levels from sample from admission. Patient is not in alcohol withdrawal at present. Banana bag for now followed by normal saline at 75 cc/h. Leukocytosis: Most likely second to dehydration. Patient does not have any fever or signs of infection for now. Urinalysis negative for nitrate and leuk esterase. We will continue to trend CBC daily. Will hold off on starting her antibiotics for now. Anxiety: Continue chronic home medications. If patient continues to have the symptoms patient would most likely need outpatient endoscopy and work-up for gastroparesis. Will most likely need a GI consult as an outpatient at [facility] as unfortunately the child is not available at [facility]. I had long conversation with patient about possible etiologies as noted above. I encourage continued alcohol cessation and consideration for marijuana cessation as well. Advance to full liquid diet. Full code Anticipate discharge home probably with some additional medications Attestations Medical Necessity Statement*: Tractable vomiting, unable to tolerate p.o. diet. Time Spent in Patient Care: Greater than 35 minutes Coding Level of Care Code Acute Casing Running Machine Tender for g Fwd Diagnoses Vomiting R11.2 Nausea presence: with nausea Vomiting Intractability: intractable Vomiting type: unspecified Dehydration E86.0 Leukocytosis D72.829 Anxiety F41.9 Marijuana use F12.90 Nicotine dependence, cigarettes, uncomplicated F17.210
[2020-01-29] MEDS: folic acid 1 MG, multivitamin inj 10 ML, thiamine 100 MG in sodium chloride 0.9% 1,000 ML 252.8 MG IV (12:44)
[2020-01-29] MEDS: ondansetron 2 mg/ML SDV 2 mL 4 MG IVP (13:28)
[2020-01-29 13:55] LABS: Amphetamines Screen Urine Negative (Negative); Barbiturates Screen Urine Negative (Negative); Benzodiazepines Screen Urine Positive (Negative); Cocaine Screen Urine Negative (Negative); Opiate Screen Urine Negative (Negative); PCP Screen Urine Negative (Negative); THC Screen Urine Positive (Negative)
--- NOTE | 2020-01-29 15:53 | PC.NURSE ---
VS ADULT CARE MANAGER notified radio news writer of vs taken via auto cuff, manual bp taken rt arm laying down bp 154/76
--- NOTE | 2020-01-29 19:16 | PC.NURSE ---
PATIENT RESTING IN BED, ZERO C/O PAIN/ DISCOMFORT AT THIS TIME, STABS TO ABD X3, C/D/I, PATIENT DRAIN TO RIGHT ABD WITH 150CC OUTPUT SEROSANGUINEOUS DRAINAGE, DRAIN COMPRESSED, HYDRATION FLUIDS RUNNING AT 125ML VIA IV.
[2020-01-29] MEDS: sodium chlor 0.9% + KCl 20 mEq 20 MEQ/1,000 ML BAG 75 MEQ IV (21:51)
[2020-01-29 22:11] LABS: HIV 1 & 2 Antibody Non-Reactive (Non-Reactiv); HIV 1 & 2 Antigen Non-Reactive (Non-Reactiv)
[2020-01-30 01:42] LABS: Hepatitis A Antibody IgM Non-Reactive (Nonreactive); Hepatitis B Core AB, Total Non-Reactive (Nonreactive); Hepatitis B Surface AB 3.5 (0-8.5); Hepatitis B Surface Antigen Non-Reactive (Nonreactive); Hepatitis C Virus Antibody Non-Reactive (Nonreactive)
[2020-01-30 04:00] VITALS: BP 141/81; PULSE 61; RESP 18; TEMP 36.7; O2SAT 97
[2020-01-30 05:35] LABS: Basophils # 0.1 10^3/uL (0.0-0.1); Basophils % 0.6 %; Eosinophils % 0.3 %; Hematocrit 41.9 % (42.0-52.0); Hemoglobin 14.6 g/dL (11.7-16.6); Lymphocytes # 2.5 10^3/uL (0.8-4.8); Lymphocytes % 23.8 %; Mean Corpuscular HGB Conc 34.8 g/dL (30.0-36.0); Mean Corpuscular Hemoglobin 32.2 pg (28.0-34.0); Mean Corpuscular Volume 92.3 fL (80-94); Mean Platelet Volume 10.5 fL (7.4-10.4); Monocytes # 0.8 10^3/uL (0.2-0.9); Monocytes % 7.5 %; Neutrophils # 7.2 10^3/uL (1.8-7.7); Neutrophils % 67.6 %; Nucleated Red Blood Cells % 0 %; Platelet Count 156 10^3/cmm (130-400); Red Blood Count 4.54 10^6/uL (4.1-5.3); Red Cell Distribution Width 11.8 % (12.1-15.1); White Blood Count 10.6 10^3/uL (4.0-10.0)
[2020-01-30 05:54] LABS: Alanine Aminotransferase 13 U/L (0-41); Albumin Level 3.9 g/dL (3.5-5.2); Alkaline Phosphatase 48 IU/L (40-130); Anion Gap 16.4 (5-19); Aspartate Amino Transferase 14 U/L (0-40); Blood Urea Nitrogen 10 mg/dL (6-20); Calcium 8.9 mg/dL (8.5-10.5); Carbon Dioxide 25 mmol/L (22-29); Chloride 98 mmol/L (98-107); Globulin 2.4 g/dL (1.3-4.6); Glomerular Filtration Rate 151.6 mL/min (90-130); Glucose 102 mg/dL (65-115); Osmolality Calculated 278 mOsm/kg (285-295); Potassium 3.4 mmol/L (3.5-5.1); Sodium 136 mmol/L (136-145); Total Bilirubin 0.8 mg/dL (0.15-1.2); Total Protein 6.3 g/dL (6.6-8.7)
[2020-01-30] MEDS: sucralfate 1 gm/10 mL Oral Liq UDC PO ×2 (06:04→10:43)
[2020-01-30] MEDS: ondansetron 2 mg/ML SDV 2 mL 4 MG IVP (06:17)
[2020-01-30 07:13] VITALS: BP 158/84; PULSE 56; RESP 18; TEMP 36.8; O2SAT 97
[2020-01-30] MEDS: PARoxetine 20 mg Tablet PO (08:49)
[2020-01-30] MEDS: famotidine 20 mg/2 mL INJ IVP (08:50)
[2020-01-30] MEDS: sodium chlor 0.9% + KCl 20 mEq 20 MEQ/1,000 ML BAG 75 MEQ IV (10:43)
[2020-01-30 11:13] VITALS: BP 154/88; PULSE 63; RESP 18; TEMP 36.6; O2SAT 97
--- NOTE | 2020-01-30 11:35 | P.DS_ITS ---
Discharge Providers Date of Admission: 01/28/20 21:14 Date of Discharge: January 30, 2020 Attending Provider at Admission: Jeimy Young MD Attending Provider at Discharge: Shaun Johnson MD Primary Care Provider: Emily Hannah-Suly Diagnoses at Discharge Discharge Diagnosis (1) Vomiting: Status: Acute Qualifiers: Nausea presence: with nausea Vomiting Intractability: intractable Vomiting type: unspecified Qualified Code(s): R11.2 - Nausea with vomiting, unspecified (2) Dehydration: Status: Acute (3) Leukocytosis: Status: Acute (4) Anxiety: Status: Chronic Problem details: paxil and prn xanax (5) Marijuana use: Status: Chronic (6) Nicotine dependence, cigarettes, uncomplicated: Status: Inactive Reason for Visit 2 Reason for Visit: Reason For Visit: abd pain Hospital Course Discharge Summary: Jose G Pedraza is a 39 year old male who presented to the emergency room on January 27 with intractable nausea and vomiting, abdominal discomfort and diarrhea. Symptoms have been going on to some degree for the last couple of weeks. He saw his primary care provider who gave him a prescription for some Carafate. He has not taken any H2 blockers or PPIs. This past weekend on Monday, he had acute worsening in which his nausea became overwhelming and he had about 50 episodes of vomiting by his report. Primarily food and then clear liquid. This was associated with 2 episodes of loose watery stools. Patient stated he has had similar complaints many times in his life especially over last 3 to 5 years.Back in 2017 he had been taking ibuprofen and other NSAIDs for migraine headaches and clinically was felt to have NSAID induced gastritis. He was treated with a PPI. At that time TSH was checked and was at 0.546. Lipase was normal at 90. Was were normal he had gallbladder ultrasound which was unremarkable. Recommendation was for arrangements for an EGD if symptoms persisted but he has not had this done. Most of the time, if he comes to the emergency room and get some fluids and other electrolyte replacement, anti-medics, he feels better. Symptoms will last anywhere from a few days to a couple of weeks. He has never had a definitive diagnosis. In talking with him, he previously drank a significant amount of alcohol for quite a few years, fifth a day. Has never been diagnosed with pancreatitis nor had imaging suggestive of such. Since a young age he has smoked marijuana frequ ently though is currently only using about twice a week. He denies recurrent NSAID use. Only medications he takes are those listed. He does smoke. He describes weight loss of 15 to 20 pounds since October but also mentions that his weight will vary quite a bit when he is able to take an oral intake versus when he is not. He reports always being thirsty. Several possible differential diagnosis which include possible chronic pancreatitis, chronic gastritis, cyclic vomiting associated with chronic marijuana use, complicated migraine.Liver functions are within normal limits along with alkaline phosphatase, CT abdomen done on admission did not show any liver pathology other than few hypodensities which were too small to be characterized. Hepatitis panel and HIV were checked which were both negative. Urine drug screen was checked which was positive only for benzos and marijuana. H. pylori was negative, A1c was within normal limits for diabetic gastropathy. It is thought his symptoms are most likely due to possible alcohol induced gastritis versus cyclic vomiting due to excessive marijuana and THC in use. Both possibilities were discussed in detail with the patient. He verbalized the understanding and agreed to decrease his marijuana use. Patient was also advised to follow-up with the marketing editor at [facility] for further work-up of possible gastroparesis along with cyclic vomiting. Patient was treated with antiemetics, IV fluid hydration and was started on clear liquid diet which was gradually advanced to GI soft diet which she was tolerating well. Patient was advised to continue with bland GI soft diet for at least 1 week and then advanced very slowly as tolerable. Physical Exam Narrative: EXAM NARRATIVE: General: No acute distress, AO x3, dehydrated, cachectic HEENT: PERRLA, pupils bilaterally equal and reactive Chest: Normal vesicular breath sounds, no added sounds, equal good air entry bilaterally CVS: S1-S2 regular, no murmurs, no tachycardia, no gallops, no rubs Abdomen: Soft, mild tenderness in epigastric area, no organomegaly, bowel sounds present Neuro: No focal deficits, no facial deformity, AO x3, power 5/5 in all limbs Discharge Data Data Completed and Pending: Completed Studies During Hospitalization Category Date Time Status CT abdomen pelvis w con* [id number] Urge nt Cat Scan 01/28/20 19:06 Completed XR chest 1V [place]bara ble [id number] Urgent Exams 01/28/20 19:06 Completed Pending at discharge Category Date Time Status Urine Culture Sta t Lab 01/28/20 20:16 Results Labs from last 24 hours 01/30/20 01/30/20 01/29/20 05:25 05:25 13:15 WBC 10.6 H RBC 4.54 Hgb 14.6 Hct 41.9 L MCV 92.3 MCH 32.2 MCHC 34.8 RDW 11.8 L Plt Count 156 MPV 10.5 H Neut % (Auto) 67.6 Lymph % (Auto) 23.8 Caswell % (Auto) 7.5 Eos % (Auto) 0.3 Baso % (Auto) 0.6 Neut # (Auto) 7.2 Lymph # (Auto) 2.5 Caswell # (Auto) 0.8 Eos # (Auto) 0.0 Baso # (Auto) 0.1 Nucleated RBC % (a uto) 0 Nucleated RBCs # 0.0 Sodium 136 Potassium 3.4 L Chloride 98 Carbon Dioxide 25 Anion Gap 16.4 BUN 10 Creatinine 0.6 L GFR Calculation 151.6 H Glucose 102 Calculated Osmolal ity 278 L Calcium 8.9 Total Bilirubin 0.8 AST 14 ALT 13 Alkaline Phosphata se 48 Total Protein 6.3 L Albumin 3.9 Globulin 2.4 Urine Opiates Scre en Negative Ur Barbiturates Sc reen Negative Ur Phencyclidine S crn Negative Ur Amphetamines Sc reen Negative U Benzodiazepines Scrn Positive H Urine Cocaine Scre en Negative U Marijuana (THC) Screen Positive H Hepatitis A IgM Ab Hep Bs Antigen Hep Bs Antibody Hep B Core Total A b Hepatitis C Antibo dy HIV 1&2 Ab & HIV 1 Ag HIV 1&2 Antibody 01/29/20 01/29/20 05:00 05:00 WBC RBC Hgb Hct MCV MCH MCHC RDW Plt Count MPV Neut % (Auto) Lymph % (Auto) Caswell % (Auto) Eos % (Auto) Baso % (Auto) Neut # (Auto) Lymph # (Auto) Caswell # (Auto) Eos # (Auto) Baso # (Auto) Nucleated RBC % (a uto) Nucleated RBCs # Sodium Potassium Chloride Carbon Dioxide Anion Gap BUN Creatinine GFR Calculation Glucose Calculated Osmolal ity Calcium Total Bilirubin AST ALT Alkaline Phosphata se Total Protein Albumin Globulin Urine Opiates Scre en Ur Barbiturates Sc reen Ur Phencyclidine S crn Ur Amphetamines Sc reen U Benzodiazepines Scrn Urine Cocaine Scre en U Marijuana (THC) Screen Hepatitis A IgM Ab Non-reactive Hep Bs Antigen Non-reactive Hep Bs Antibody 3.5 Hep B Core Total A b Non-reactive Hepatitis C Antibo dy Non-reactive HIV 1&2 Ab & HIV 1 Ag Non-reactive HIV 1&2 Antibody Non-reactive Vitals: Last Vital Signs Temp 97.9 F 01/30/20 11:13 Pulse 63 01/30/20 11:13 Resp 18 01/30/20 11:13 BP 154/88 01/30/20 11:13 Pulse Ox 97 01/30/20 11:13 Discharge Plan Discharge Patient Disposition: Home, Self-Care Condition: Stable Prescriptions: New sucralfate 100 mg/mL Suspension 1 g PO AC&BEDTIME Qty: 50 RF: 0 Protonix [address] for susp in packet 40 mg PO DAILY 28 Days Qty: 30 RF: 0 Continued alprazolam 0.5 mg tablet 0.5 mg PO TID PRN (Reason: Anxiety) RF: 0 paroxetine HCl 20 mg tablet 20 mg PO DAILY RF: 0 Discontinued sucralfate [Carafate] 1 gram Tablet 1 g PO BID RF: 0 Discharge Orders: Discharge Order (Routine); Ordered 01/30/20 Ordered By: Shaun Johnson Referrals: Emily Hannah EXPERIMENTAL MACHINIST-C [Primary Care Provider] - 02/12/20 3:00 pm Discharge Diet: Advance as tolerated and GI Soft Discharge Activity: Resume usual activity Patient Instructions: Sucralfate (By mouth), Alprazolam (By mouth), Paroxetine (By mouth), Pantoprazole (By mouth), Marijuana Abuse, How to Stop Smoking (DC), Dehydration (DC), Soft Diet (DC), Leukocytosis (DC), Anxiety (DC) Activity Restrictions/Additional Instructions: GI soft diet/Kimble diet for at least 7 to 10 days and then advance as tolerated. Please follow-up with marketing editor at [facility] in a month for further evaluation of possible cyclic vomiting with evaluation for gastroparesis. As discussed please avoid marijuana use. Discharge Date/Time: 01/30/20 14:01 Discharge Attestations Time Spent in Discharge Care*: greater than 30 min Specific Discharge Activities: Specific discharge activities: educating patient, documenting/other paperwork and evaluating patient/reviewing data Time Spent in Smoking Cessation: Time spent discussing smoking cessation with patient: more than 10 minutes Status at Discharge: Cognitive status at discharge: cognitively intact , Behavioral status at discharge: cooperative , Functional status at discharge: independent ambulation Overall status at discharge: patient is progressing back to baseline Quality Metrics Clinical Quality Measures During this hospital stay, did patient experience: None Coding Level of Care Code Acute Bass Singer for Chg Fwd Diagnoses Vomiting R11.2 Nausea presence: with nausea Vomiting Intractability: intractable Vomiting type: unspecified Dehydration E86.0 Leukocytosis D72.829 Anxiety F41.9 Marijuana use F12.90 Nicotine dependence, cigarettes, uncomplicated F17.210
[2020-01-30 11:51] VITALS: BP 154/88; PULSE 63; RESP 18; TEMP 36.6; O2SAT 97
[2020-01-30 11:52] VITALS: BP 154/88; PULSE 63; RESP 18; TEMP 36.6; O2SAT 97
[2020-01-30 14:00] VITALS: BP 154/88; PULSE 63; RESP 18; TEMP 36.6; O2SAT 97
== END 2020-01-30 14:01 | disposition home or self-care (01) | DRG 392 ==
LOC: ER 19:17 → MEDSURG 21:38
PROVIDERS: Admitting Provider Hospitalist; Emergency Provider Emergency Medicine; Family Provider Family Medicine; PCP Nurse Practitioner Family; Visit Provider Student in an Organized Health Care Education/Training Program
DX: R11.2 Nausea with vomiting, unspecified (principal); F41.9 Anxiety disorder, unspecified; G43.009 Migraine without aura, not intractable, without status migrainosus; F17.210 Nicotine dependence, cigarettes, uncomplicated; F10.21 Alcohol dependence, in remission; F12.90 Cannabis use, unspecified, uncomplicated; E86.0 Dehydration
CPT/HCPCS: 12345; 36415; 71045; 74177; 80053; 80061; 80306; 80307; 81001; 83036; 83690; 83735; 84100; 84443; 85025; 86677; 86705; 86706; 86709; 86803; 87077; 87086; 87186; 87340; 87806; 93005; 96375; 99283; J1170; J2060; J2270; J2405; J3411; J3490; J7030; Q9967

== ENCOUNTER 2020-10-18 19:08 | Emergency (ER) | payer SELFPAY ==
[2020-10-18 19:29] VITALS: BP 103/73; PULSE 108; RESP 14; TEMP 36.7; O2SAT 95; BMI 16.7
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
[2020-10-18] MEDS: iohexol 300 mg/mL 100 mL Btl IV (20:54)
[2020-10-18 21:00] LABS: Basophils # 0.1 10^3/uL (0.0-0.1); Basophils % 0.5 %; Eosinophils # 0.1 10^3/uL (0.0-0.8); Eosinophils % 0.4 %; Hematocrit 52.6 % (42.0-52.0); Hemoglobin 19.6 g/dL (11.7-16.6); Lymphocytes % 22.9 %; Mean Corpuscular HGB Conc 37.3 g/dL (30.0-36.0); Mean Corpuscular Hemoglobin 32.3 pg (28.0-34.0); Mean Corpuscular Volume 86.7 fL (80-94); Mean Platelet Volume 10.8 fL (7.4-10.4); Monocytes % 7.6 %; Neutrophils # 9.09 10^3/uL (1.8-7.7); Neutrophils % 68.3 %; Nucleated Red Blood Cells % 0 %; Platelet Count 239 10^3/cmm (130-400); Red Blood Count 6.07 10^6/uL (4.1-5.3); Red Cell Distribution Width 11.3 % (12.1-15.1); White Blood Count 13.3 10^3/uL (4.0-10.0)
[2020-10-18 21:11] VITALS: BP 123/76; PULSE 78; RESP 16; O2SAT 98
[2020-10-18] MEDS: diphenhydrAMINE 50 mg/mL SDV 1mL 25 MG IVP (21:11)
[2020-10-18] MEDS: sodium chloride 0.9% 1,000 ML 999 ML IV ×2 (21:11→22:53)
[2020-10-18] MEDS: ondansetron 2 mg/ML SDV 2 mL 4 MG IVP ×2 (21:11→22:53)
[2020-10-18 21:20] LABS: Alanine Aminotransferase 11 U/L (0-41); Albumin Level 4.3 g/dL (3.5-5.2); Alkaline Phosphatase 82 IU/L (40-130); Aspartate Amino Transferase 15 U/L (0-40); Blood Urea Nitrogen 17 mg/dL (6-20); Calcium 10.2 mg/dL (8.5-10.5); Carbon Dioxide 34 mmol/L (22-29); Chloride 80 mmol/L (98-107); Globulin 3.5 g/dL (1.3-4.6); Glomerular Filtration Rate 126.2 mL/min (90-130); Glucose 129 mg/dL (65-115); Lactate (Lactic Acid level) 1.5 mmol/L (0.5-2.2); Lipase 21 U/L (13-60); Osmolality Calculated 271 mOsm/kg (285-295); Sodium 129 mmol/L (136-145); Total Bilirubin 0.5 mg/dL (0.15-1.2); Total Protein 7.8 g/dL (6.6-8.7)
[2020-10-18 21:23] LABS: Anion Gap 17.6 (5-19)
[2020-10-18 21:24] LABS: Potassium 2.6 mmol/L (3.5-5.1)
[2020-10-18] MEDS: potassium chloride premix 100 ML 50 MEQ IV (21:53)
[2020-10-18 22:02] LABS: Ketone (Acetest) Serum Negative (Negative)
[2020-10-18] MEDS: metoclopramide 5 mg/mL SDV 2 mL 10 MG IVP (22:53)
[2020-10-18] MEDS: famotidine 20 mg Tablet 40 MG PO (22:53)
[2020-10-18] MEDS: acetaminophen 500 mg Tablet 1000 MG PO (22:53)
[2020-10-18] MEDS: potassium chloride ER 20 mEq Tablet 40 MEQ PO (22:53)
[2020-10-19 01:32] VITALS: BP 132/78; PULSE 87; RESP 16; O2SAT 98
[2020-10-19 01:45] LABS: Anion Gap 13.2 (5-19); Blood Urea Nitrogen 16 mg/dL (6-20); Calcium 9.1 mg/dL (8.5-10.5); Carbon Dioxide 35 mmol/L (22-29); Chloride 86 mmol/L (98-107); Glomerular Filtration Rate 108.2 mL/min (90-130); Glucose 118 mg/dL (65-115); Osmolality Calculated 274 mOsm/kg (285-295); Potassium 3.2 mmol/L (3.5-5.1); Sodium 131 mmol/L (136-145)
[2020-10-19 01:48] LABS: Add Urine Microscopic? NO
[2020-10-19 02:06] LABS: Bilirubin Urine Neg (Negative); Blood Urine Neg (Negative); Glucose Urine UA Norm (Normal); Ketones Urine Negative (Negative); Leukocyte Esterase Urine Negative (Negative); Nitrate Urine Negative (Negative); Protein Urine Neg (Negative); Specific Gravity, Urine 1.005 (1.005-1.030); Urine Appearance Clear (CLEAR); Urine Color Yellow (Yellow); Urobilinogen Urine Norm (Negative); pH Urine 7 (5-7)
[2020-10-19 02:23] VITALS: BP 134/76; PULSE 78; RESP 18; O2SAT 98
== END 2020-10-19 02:26 | disposition home or self-care (01) ==
PROVIDERS: Emergency Provider Nurse Practitioner Family; PCP Nurse Practitioner Family
DX: R11.10 Vomiting, unspecified (principal); R10.84 Generalized abdominal pain; E86.0 Dehydration; E87.6 Hypokalemia; F12.90 Cannabis use, unspecified, uncomplicated; F17.210 Nicotine dependence, cigarettes, uncomplicated
CPT/HCPCS: 12345; 74177; 80048; 80053; 81003; 82009; 83605; 83690; 85025; 96365; 96366; 96375; 96376; 99283; 99284; J1200; J2405; J2765; J3480; J7040; Q9967

== ENCOUNTER 2020-11-24 11:35 | Emergency (ER) | payer SELFPAY ==
[2020-11-24 12:01] VITALS: BP 123/88; PULSE 86; RESP 18; TEMP 36.5; O2SAT 98; BMI 19.5
[2020-11-24 12:06] VITALS: BP 133/91; PULSE 71; RESP 18; O2SAT 97
--- NOTE | 2020-11-24 12:50 | ED_ITS ---
HPI - Abdominal Pain General: Chief Complaint: Abdominal Pain Stated Complaint: N/V/Dehydration Time Seen by Provider: 11/24/20 12:35 History of Present Illness: HPI narrative: The patient is a 40-year-old male who comes to the ER complaining of 8 days of nausea vomiting and diarrhea. He gets these episodes multiple times a year and the cause is unknown but chart review reveals marijuana use possibly causing cyclic vomiting syndrome versus chronic pancreatitis versus alcoholism versus ulcers versus other pathologies. He says he knows when he gets sick and needs to come in because his potassium gets critically low and he needs fluids and potassium supplements. MD elicited complaint: abdominal pain Onset (ago): day(s) (8) Pain Consistency: constant Location: Epigastric Severity: moderate Quality: sharp Exacerbating factors: eating Relieving factors: nothing Associated Symptoms: Reports diarrhea, nausea and vomiting Review of Systems General: Reports: 10 or more systems reviewed and unremarkable except in HPI and below Const: Denies: fatigue Eyes: Denies: change in vision, blurry vision or eye redness ENMT: Denies: throat pain, swelling of lips/tongue, ear or mastoid pain or nasal congestion Card: Denies: chest pain, palpitations, irregular heart rhythm, edema, dyspnea on exertion or orthopnea Resp: Denies: dyspnea, productive cough or non-productive cough GI: Reports: abdominal pain, nausea, vomiting and diarrhea : Denies: flank pain, urinary frequency or urinary urgency Musc: Denies: neck pain, back pain, extremity pain, joint pain, joint redness, limited range of motion or muscle weakness Skin/Breast: Denies: rash, pruritus, erythema, skin pain or skin tenderness Neuro: Denies: headache(s), numbness in extremities, weakness in extremities, sensory changes, difficulty walking, dizziness, confusion or Slurred speech present Psych: Denies: anxiety or depression Endo: Denies: polyuria All/Imm: Denies: urticaria, throat swelling or tongue swelling PFSH ED PFSH: Medical History (Updated 11/24/20 @ 17:30 by Sanjay Spain MD) Alcohol abuse Anxiety paxil and prn xanax History of migraine intermittent, ~ once a month, Tylenol and quiet History of seizures no meds now. last ~7 yrs ago Nicotine dependence, cigarettes, uncomplicated Surgical History No pertinent past surgical history Family History Mother Ovarian cancer Father Melanoma Social History Smoking and tobacco status: current every day smoker cigarettes [ Other cigarette details: 10/10 ppd ] Alcohol intake: former Former alcohol use details: quit 8 months ago, former 5th day for years Physical Exam Const: COMMON NORMALS: no acute distress, average body habitus, patient oriented x3, no limitations, healthy appearing, alert and well nourished GENERAL APPEARANCE: cooperative, comfortable, well kempt and well developed ORIENTATION/CONSCIOUSNESS: Yes awake, Yes oriented to person, Yes oriented to place and Yes oriented to time HENMT: COMMON NORMALS: normocephalic, external ears normal and Normal external nose present HEAD & SCALP: normal to inspection and normocephalic NOSE: Normal external nose present EXTERNAL EAR: Yes external ears normal MOUTH: Normal oral and palatal mucosa present THROAT: posterior oropharynx normal Eye: COMMON NORMALS: Equal, round and reactive pupils present and EOMs intact bilaterally GENERAL EYE: appearance normal, both eyes and all related structures PUPIL: Yes Equal, round and reactive pupils present Neck/C-Spine: COMMON NORMALS: full ROM, no lymphadenopathy, no meningeal signs and no JVD GENERAL: Yes normal visual inspection Lymph: LYMPHATIC: no lymphadenopathy noted Chest: COMMONS NORMALS: normal inspection of the chest and normal palpation of entire chest wall Resp: COMMON NORMALS: normal respiratory effort, No retractions, No use of accessory muscles, clear to auscultation bilaterally and percussion normal EFFORT & INSPECTION: Yes able to speak in complete sentences AUSCULTATION: clear to auscultation bilaterally PERCUSSION: percussion normal Cardio: COMMON NORMALS: no JVD, regular rate, regular rhythm, S1 normal heart sound present, S2 normal heart sound present and Peripheral pulses 2+ throughout RATE: regular rate RHYTHM: regular rhythm HEART SOUNDS: S1 normal heart sound present and S2 normal heart sound present PERIPHERAL PULSES: Peripheral pulses 2+ throughout GI: COMMON NORMALS: Normal to inspection, nondistended, normoactive bowel sounds present and no masses INSPECTION: Yes normal to inspection PALPATION: Yes Tenderness to palpation present (GI) Details: other (epigasatric) : COMMON NORMALS: Yes no CVA tenderness BLADDER/KIDNEY EXAM: Yes no CVA tenderness Back/Pelvis: COMMON NORMALS: no CVA tenderness, thoracic and lumbar spine normal to inspection, no thoracic nor lumbar tenderness and thoraco-lumbar ROM normal Extremity: COMMON NORMALS: normal to inspection, full ROM, capillary refill normal, no joint enlargement and no pedal edema GENERAL: Yes normal exam except as noted Neuro: COMMON NORMALS: patient oriented x3, CN's II-XII intact bilaterally, moves all extremities, no focal motor deficits, no sensory deficits noted and gait normal SENSORIUM/ORIENTATION: Yes alert, Yes oriented to person, Yes oriented to place and Yes oriented to time MENINGEAL SIGNS: Yes no meningeal signs Psych: COMMON NORMALS: mental status grossly normal, Normal thought process present, cooperative, normal affect and speech normal APPEARANCE: Yes well kempt ATTITUDE: Yes calm SPEECH: Yes normal speech THOUGHT PROCESS: Normal thought process present Skin: COMMON NORMALS: no rashes or lesions noted GENERAL SKIN EXAM: no rashes or lesions noted Course Vital Signs: Vital signs: Vital Signs Temperature 97.7 F 11/24/20 12:01 Pulse Rate 73 11/24/20 15:07 Respiratory Rate 18 11/24/20 15:07 Blood Pressure 127/87 11/24/20 15:07 Pulse Oximetry 100 11/24/20 15:07 MDM - Abdominal Pain MDM Narrative: Medical decision making narrative: 1720 6 PM. The patient says he feels much better after about half of the IV potassium has completed. He refuses to let it to finish without another bag of fluids. He has had 2 bags already which is enough. We will give him 40 mg p.o.. He is asking for discharge. Recommended following up with primary care physician in a couple days to repeat lab work. He does not want his blood repeated here because he is a hard stick and he says whenever his potassium improves so does he clinically and he feels very well now and tolerating oral fluids. We will discharge him home Lab Data: Labs: Lab Results 11/24/20 11/24/20 11/24/20 Range/Units 13:06 13:06 13:06 WBC 6.1 (4.0-10.0) 10^3/ uL RBC 5.47 H (4.1-5.3) 10^6/u L Hgb 17.6 H (11.7-16.6) g/dL Hct 48.4 (42.0-52.0) % MCV 88.5 (80-94) fL MCH 32.2 (28.0-34.0) pg MCHC 36.4 H (30.0-36.0) g/dL RDW 11.7 L (12.1-15.1) % Plt Count 227 (130-400) 10^3/c mm MPV 11.1 H (7.4-10.4) fL Neut % (Auto) 67.7 % Lymph % (Auto) 24.2 % [place] % (Auto) 7.2 % Eos % (Auto) 0.0 % Baso % (Auto) 0.7 % Neut # (Auto) 4.12 (1.8-7.7) 10^3/u L Lymph # (Auto) 1.5 (0.8-4.8) 10^3/u L [place] # (Auto) 0.4 (0.2-0.9) 10^3/u L Eos # (Auto) 0.0 (0.0-0.8) 10^3/u L Baso # (Auto) 0.0 (0.0-0.1) 10^3/u L Nucleated RBC % (a uto) 0 % Nucleated RBCs # 0.0 /100WBC Sodium 127 L (136-145) mmol/L Potassium 2.8 L* (3.5-5.1) mmol/L Chloride 79 L (98-107) mmol/L Carbon Dioxide 36 H (22-29) mmol/L Anion Gap 14.8 (5-19) BUN 14 (6-20) mg/dL Creatinine 0.7 (0.7-1.2) mg/dL GFR Calculation 126.2 (90-130) mL/min Glucose 101 (65-115) mg/dL Calculated Osmolal ity 265 L (285-295) mOsm/k g Lactate 1.5 (0.5-2.2) mmol/L Calcium 9.9 (8.5-10.5) mg/dL Total Bilirubin 0.9 (0.15-1.2) mg/dL AST 16 (0-40) U/L ALT 13 (0-41) U/L Alkaline Phosphata se 76 (40-130) IU/L Total Protein 7.7 (6.6-8.7) g/dL Albumin 4.6 (3.5-5.2) g/dL Globulin 3.1 (1.3-4.6) g/dL Lipase 31 (13-60) U/L Urine Color (Yellow) Urine Appearance (CLEAR) Urine pH (5-7) Ur Specific Gravit y (1.005-1.030) Urine Protein (Negative) Urine Glucose (UA) (Normal) Urine Ketones (Negative) Urine Blood (Negative) Urine Nitrate (Negative) Urine Bilirubin (Negative) Prot Sulfosalicyli c Acd (Negative) Urine Urobilinogen (Negative) mg/dL Ur Leukocyte Alaina ase (Negative) Urine RBC (0-2) /hpf Urine WBC (0-5) /hpf Ur Squamous Epith Cells (0-5) /hpf Amorphous Sediment /hpf Urine Bacteria (NONE) /hpf 11/24/20 Range/Units 14:13 WBC (4.0-10.0) 10^3/ uL RBC (4.1-5.3) 10^6/u L Hgb (11.7-16.6) g/dL Hct (42.0-52.0) % MCV (80-94) fL MCH (28.0-34.0) pg MCHC (30.0-36.0) g/dL RDW (12.1-15.1) % Plt Count (130-400) 10^3/c mm MPV (7.4-10.4) fL Neut % (Auto) % Lymph % (Auto) % [place] % (Auto) % Eos % (Auto) % Baso % (Auto) % Neut # (Auto) (1.8-7.7) 10^3/u L Lymph # (Auto) (0.8-4.8) 10^3/u L [place] # (Auto) (0.2-0.9) 10^3/u L Eos # (Auto) (0.0-0.8) 10^3/u L Baso # (Auto) (0.0-0.1) 10^3/u L Nucleated RBC % (a uto) % Nucleated RBCs # /100WBC Sodium (136-145) mmol/L Potassium (3.5-5.1) mmol/L Chloride (98-107) mmol/L Carbon Dioxide (22-29) mmol/L Anion Gap (5-19) BUN (6-20) mg/dL Creatinine (0.7-1.2) mg/dL GFR Calculation (90-130) mL/min Glucose (65-115) mg/dL Calculated Osmolal ity (285-295) mOsm/k g Lactate (0.5-2.2) mmol/L Calcium (8.5-10.5) mg/dL Total Bilirubin (0.15-1.2) mg/dL AST (0-40) U/L ALT (0-41) U/L Alkaline Phosphata se (40-130) IU/L Total Protein (6.6-8.7) g/dL Albumin (3.5-5.2) g/dL Globulin (1.3-4.6) g/dL Lipase (13-60) U/L Urine Color Yellow (Yellow) Urine Appearance Cloudy (CLEAR) Urine pH 8 H (5-7) Ur Specific Gravit y 1.010 (1.005-1.030) Urine Protein Neg (Negative) Urine Glucose (UA) Norm (Normal) Urine Ketones 1+ H (Negative) Urine Blood Neg (Negative) Urine Nitrate Negative (Negative) Urine Bilirubin Neg (Negative) Prot Sulfosalicyli c Acd Negative (Negative) Urine Urobilinogen Norm (Negative) mg/dL Ur Leukocyte Alaina ase Negative (Negative) Urine RBC None (0-2) /hpf Urine WBC 0-4 H (0-5) /hpf Ur Squamous Epith Cells 0-4 H (0-5) /hpf Amorphous Sediment 4+ /hpf Urine Bacteria 1+ H (NONE) /hpf Discharge Plan Discharge Patient Disposition: Home Clinical Impression: Gastroenteritis, Acute hypokalemia Condition: Stable Prescriptions: New ondansetron 4 mg tablet,disintegrating 4 mg PO Q8H 5 Days Qty: 15 RF: 0 No Action alprazolam 0.5 mg tablet 0.5 mg PO TID PRN (Reason: Anxiety) RF: 0 paroxetine HCl 20 mg tablet 20 mg PO DAILY RF: 0 sucralfate 100 mg/mL Suspension 1 g PO AC&BEDTIME Qty: 50 RF: 0 promethazine 25 mg tablet 25 mg PO Q6H PRN (Reason: nausea and vomiting) Qty: 10 RF: 0 Pepcid 20 mg tablet 20 mg PO BID Qty: 20 RF: 0 Discharge Orders: Discharge ED (Routine); Ordered 11/24/20 Ordered By: Sanjay Spain Referrals: Emily Hannah FNP-C [Primary Care Provider] - Patient Instructions: Hypokalemia (ED), Opioid Safety, Vomiting - Adult Activity Restrictions/Additional Instructions: You have electrolyte abnormalities likely related to your vomiting. Your vomiting has resolved and so should your electrolyte abnormalities pretty quickly. Please follow-up with your primary care physician in a couple days to monitor improvement of your symptoms and get your blood rechecked. Return to the ER with worsening symptoms Coding Level of Care Code ED Project Planner for [facility] Exam Comprehensive
[2020-11-24 13:15] VITALS: BP 133/91; PULSE 67; RESP 18; O2SAT 96
[2020-11-24] MEDS: famotidine 20 mg/2 mL INJ 40 MG IVP (13:15)
[2020-11-24] MEDS: ondansetron 2 mg/ML SDV 2 mL 4 MG IVP (13:16)
[2020-11-24] MEDS: diphenhydrAMINE 50 mg/mL SDV 1mL 25 MG IVP (13:16)
[2020-11-24] MEDS: sodium chloride 0.9% 1,000 ML 999 ML IV (13:16)
[2020-11-24 13:17] LABS: Basophils % 0.7 %; Hematocrit 48.4 % (42.0-52.0); Hemoglobin 17.6 g/dL (11.7-16.6); Lymphocytes # 1.5 10^3/uL (0.8-4.8); Lymphocytes % 24.2 %; Mean Corpuscular HGB Conc 36.4 g/dL (30.0-36.0); Mean Corpuscular Hemoglobin 32.2 pg (28.0-34.0); Mean Corpuscular Volume 88.5 fL (80-94); Mean Platelet Volume 11.1 fL (7.4-10.4); Monocytes # 0.4 10^3/uL (0.2-0.9); Monocytes % 7.2 %; Neutrophils # 4.12 10^3/uL (1.8-7.7); Neutrophils % 67.7 %; Nucleated Red Blood Cells % 0 %; Platelet Count 227 10^3/cmm (130-400); Red Blood Count 5.47 10^6/uL (4.1-5.3); Red Cell Distribution Width 11.7 % (12.1-15.1); White Blood Count 6.1 10^3/uL (4.0-10.0)
[2020-11-24 13:38] LABS: Lactate (Lactic Acid level) 1.5 mmol/L (0.5-2.2)
[2020-11-24 13:39] LABS: Alanine Aminotransferase 13 U/L (0-41); Albumin Level 4.6 g/dL (3.5-5.2); Alkaline Phosphatase 76 IU/L (40-130); Anion Gap 14.8 (5-19); Aspartate Amino Transferase 16 U/L (0-40); Blood Urea Nitrogen 14 mg/dL (6-20); Calcium 9.9 mg/dL (8.5-10.5); Carbon Dioxide 36 mmol/L (22-29); Chloride 79 mmol/L (98-107); Globulin 3.1 g/dL (1.3-4.6); Glomerular Filtration Rate 126.2 mL/min (90-130); Glucose 101 mg/dL (65-115); Lipase 31 U/L (13-60); Osmolality Calculated 265 mOsm/kg (285-295); Sodium 127 mmol/L (136-145); Total Bilirubin 0.9 mg/dL (0.15-1.2); Total Protein 7.7 g/dL (6.6-8.7)
[2020-11-24 13:48] LABS: Potassium 2.8 mmol/L (3.5-5.1)
--- NOTE | 2020-11-24 13:48 | CT_ITS ---
WS: [id number] CT ABDOMEN AND PELVIS WITH CONTRAST HISTORY: epigastric tenderness TECHNIQUE: Imaging performed of the abdomen and pelvis with IV contrast. Single phase imaging of the abdomen. Coronal and sagittal reformats are submitted. All CT scans at [facility] use at least one of these dose optimization techniques: automated exposure control; mA and/or kV adjustment per patient size (includes targeted exams where dose is matched to clinical indication); or iterativ e reconstruction. IV CONTRAST: Omnipaque 300; 95 mL IV. Oral contrast: No DLP: 181.26 mGy.cm COMPARISON: 10/18/2020 Lower thorax: Marked pulmonary hyperexpansion. No pneumonia. Heart is normal size. No hiatal hernia. Liver/biliary system: Normal size with no intrahepatic dilatation. Gallbladder: Normal. No gallstones or wall thickening. No pericholecystic fluid. Pancreas: Normal. Spleen: Normal. Adrenal glands: Normal. Right kidney: Normal. Left kidney: Normal. Aorta: Normal. Lymphadenopathy: None. Free fluid: None. GI tract: Very limited evaluation of the GI tract. There is very little separation of loops of bowel. The appendix is not identified. No GI tract obstruction. Abdominal wall: Unremarkable abdominal wall. No hernia. Pelvis: Normal. Bones: Unremarkable. CT/CT abdomen pelvis w con* [id number] IMPRESSION: 1. No acute abdominal or pelvic abnormalities are identified. 2. Limited evaluation of the GI tract due to paucity of fat. The appendix is n ot identified. No inflammatory changes are identified. 3. Emphysema.
[2020-11-24] MEDS: lidocaine 1% 5 ML in potassium chloride premix 100 ML 25 ML IV (14:09)
[2020-11-24] MEDS: iohexol 300 mg/mL 100 mL Btl IV (14:23)
[2020-11-24 15:07] VITALS: BP 127/87; PULSE 73; RESP 18; O2SAT 100
[2020-11-24] MEDS: promethazine 25 mg/mL SDV 1 mL IM (15:11)
[2020-11-24 16:35] LABS: Urine Appearance Cloudy (CLEAR); Urine Color Yellow (Yellow); pH Urine 8 (5-7)
[2020-11-24 16:36] LABS: Add Urine Microscopic? YES; Bilirubin Urine Neg (Negative); Blood Urine Neg (Negative); Glucose Urine UA Norm (Normal); Ketones Urine 1+ (Negative); Leukocyte Esterase Urine Negative (Negative); Nitrate Urine Negative (Negative); Protein Urine Neg (Negative); Sulfosalicylic Acid Urine Negative (Negative); Urobilinogen Urine Norm (Negative)
[2020-11-24 16:46] LABS: Bacteria Urine 1+ /hpf; Squamous Epithelial Cell Urine 0-4 /hpf (0-5); WBC Urine 0-4 /hpf (0-5)
[2020-11-24 16:47] LABS: Amorphous Sediment Urine 4+ /hpf
[2020-11-24 16:48] LABS: Add Urine Culture? No
[2020-11-24] MEDS: potassium chloride ER 20 mEq Tablet 40 MEQ PO (17:38)
[2020-11-24 17:41] VITALS: BP 100/70; PULSE 71; RESP 18; TEMP 37.2; O2SAT 98
== END 2020-11-24 17:45 | disposition home or self-care (01) ==
PROVIDERS: Physician Assistant; Emergency Provider Family Medicine; PCP Nurse Practitioner Family
DX: K52.9 Noninfective gastroenteritis and colitis, unspecified (principal); E87.6 Hypokalemia; F17.210 Nicotine dependence, cigarettes, uncomplicated
CPT/HCPCS: 36415; 74177; 80053; 81001; 83605; 83690; 85025; 96361; 96372; 96374; 96375; 99284; J1200; J2405; J2550; J3480; J3490; J7030; Q9967

== ENCOUNTER 2021-02-10 17:15 | Emergency (ER) | payer SELFPAY ==
[2021-02-10 17:39] VITALS: BP 142/75; PULSE 125; RESP 18; TEMP 36.7; O2SAT 96; BMI 18.1
--- NOTE | 2021-02-10 18:57 | W.ED.NAVMDI ---
HPI - Nausea/Vomiting/Diarrhea General: Chief complaint: Nausea/Vomiting/Diarrhea Stated complaint: N/V FOR 3 DAYS Time Seen by Provider: 02/10/21 18:49 History of Present Illness: HPI Narrative: Patient is a 40-year-old male comes to the ED with nausea, vomiting and diarrhea. He says he has had symptoms for about 3 days now. He does say that he has diarrhea described as liquid stool bowel movements about 3-4 times a day. He reports having 8+ episodes of emesis a day. He is unable to keep any food or fluids down for the past 3 days. Patient says that he was around one of his grandkids that had similar symptoms couple days ago. Denies any abdominal pain,, fever, chills, blood in stool chest pain, dysuria or hematuria. Associated nausea: Yes Associated symtoms: Reports nausea; Denies change in vision, chest pain, dysuria, fatigue, headache(s) or palpitations Review of Systems Const: Denies: fever(s), chills or fatigue Eyes: Denies: change in vision or eye discomfort ENMT: Denies: throat pain, odynophagia, nasal discharge or nasal congestion Card: Denies: chest pain, palpitations, edema, swelling of feet/ankles, dyspnea on exertion or orthopnea Resp: Denies: dyspnea, productive cough or non-productive cough GI: Reports: nausea, vomiting and diarrhea; Denies: abdominal pain, constipation or hematochezia : Denies: flank pain, difficulty urinating, dysuria or hematuria Musc: Denies: neck pain, back pain or extremity swelling Skin/Breast: Denies: rash or new lesions Neuro: Denies: headache(s), numbness in extremities or weakness in extremities PFS ED PFSH: Medical History Alcohol abuse Anxiety paxil and prn xanax History of migraine intermittent, ~ once a month, Tylenol and quiet History of seizures no meds now. last ~7 yrs ago Nicotine dependence, cigarettes, uncomplicated Surgical History No pertinent past surgical history Family History Mother Ovarian cancer Father Melanoma Social History Smoking and tobacco status: current every day smoker cigarettes [ Other cigarette details: 10/10 ppd ] Alcohol intake: former Former alcohol use details: quit 8 months ago, former 5th day for years Physical Exam Const: COMMON NORMALS: no acute distress, patient oriented x3 and alert GENERAL APPEARANCE: cooperative and comfortable HENMT: COMMON NORMALS: normocephalic HEAD & SCALP: normocephalic MOUTH: moist mucous membranes abnormal Details: parched THROAT: posterior oropharynx normal and uvula midline Eye: COMMON NORMALS: Equal, round and reactive pupils present PUPIL: Yes Equal, round and reactive pupils present Neck/C-Spine: COMMON NORMALS: supple GENERAL: Yes normal visual inspection Resp: COMMON NORMALS: normal respiratory effort, No retractions, No use of accessory muscles and clear to auscultation bilaterally AUSCULTATION: clear to auscultation bilaterally Cardio: COMMON NORMALS: regular rate, regular rhythm, S1 normal heart sound present, S2 normal heart sound present, No gallops present (Cardio), No clicks present (Cardio), No murmurs present (Cardio) and Peripheral pulses 2+ throughout RATE: regular rate RHYTHM: regular rhythm HEART SOUNDS: S1 normal heart sound present and S2 normal heart sound present PERIPHERAL PULSES: Peripheral pulses 2+ throughout GI: COMMON NORMALS: Normal to inspection, nondistended, normoactive bowel sounds present, Soft to palpation, non-tender and no masses PALPATION: Yes Soft to palpation : COMMON NORMALS: Yes no CVA tenderness BLADDER/KIDNEY EXAM: Yes no CVA tenderness Back/Pelvis: COMMON NORMALS: no CVA tenderness Extremity: COMMON NORMALS: normal to inspection Neuro: COMMON NORMALS: patient oriented x3 and moves all extremities SENSORIUM/ORIENTATION: Yes alert Skin: GENERAL SKIN EXAM: dry skin Course Reevaluation(s): Reevaluation #1: After patient received 2-1/2 L of fluids, bag of potassium and Reglan his symptoms improved greatly. Patient has not had any nausea or, vomiting or diarrhea while here in the ED. I gave patient some p.o. fluids and he was able to keep all of it down and had no nausea. Patient says he feels a lot better and is ready to go home. He states that he has an appointment with his PCP tomorrow morning and I told him to go to that and have his electrolyte labs rechecked tomorrow. Time: 23:40 Vital Signs: Vital signs: Vital Signs Temperature 98.1 F 02/10/21 17:39 Pulse Rate 67 02/11/21 00:08 Respiratory Rate 16 02/11/21 00:08 Blood Pressure 135/90 02/11/21 00:08 Pulse Oximetry 98 02/11/21 00:08 MDM - Nausea/Vomiting/Diarrhea MDM Narrative: Medical decision making narrative: Patient is a 40-year-old male comes to the ED with nausea vomiting and diarrhea. He denies any abdominal pain. He has been having symptoms for 3 days and says he is not been able to keep any food or fluids down. Exam findings are benign and patient is a nontoxic-appearing 40-year-old female that appears in no acute distress or pain. White blood cell count 11.6, sodium 129 and potassium 2.6. The rest of patient's labs were unremarkable. CT of abdomen pelvis showed no acute findings. EKG showed normal sinus rhythm, 92 bpm, no ST segment elevation or depression seen. Patient was given 2.5 L of fluid, IV potassium and Reglan. Patient's symptoms greatly improved and he had no nausea, vomiting or diarrhea while here in the ED. Patient says he feels a lot better and he was able to keep p.o. fluids down here in the ED. Potassium lab was rechecked after fluids and potassium and it went up to 2.9. Patient was also given p.o. potassium 20 mEq before discharge. Patient diagnosed with viral gastroenteritis discharged home with a prescription for Reglan. Patient has an appointment with his PCP tomorrow and I told him to get his electrolyte labs rechecked. Return to ED precautions given. Drink plenty of fluids and stay hydrated. Patient understood and agreed with plan. Lab Data: Attestation: I reviewed the patient's lab results. Labs: Lab Results 02/10/21 02/10/21 02/10/21 Range/Units 19:30 19:30 19:30 WBC 11.6 H (4.0-10.0) 10^3/ uL RBC 6.17 H (4.1-5.3) 10^6/u L Hgb 20.7 H (11.7-16.6) g/dL Hct 55.9 H (42.0-52.0) % MCV 90.6 (80-94) fL MCH 33.5 (28.0-34.0) pg MCHC 37.0 H (30.0-36.0) g/dL RDW 11.4 L (12.1-15.1) % Plt Count 261 (130-400) 10^3/c mm MPV 11.0 H (7.4-10.4) fL Neut % (Auto) 69.9 % Lymph % (Auto) 17.9 % [place] % (Auto) 11.5 % Eos % (Auto) 0.1 % Baso % (Auto) 0.3 % Neut # (Auto) 8.11 H (1.8-7.7) 10^3/u L Lymph # (Auto) 2.1 (0.8-4.8) 10^3/u L [place] # (Auto) 1.3 H (0.2-0.9) 10^3/u L Eos # (Auto) 0.0 (0.0-0.8) 10^3/u L Baso # (Auto) 0.0 (0.0-0.1) 10^3/u L Nucleated RBC % (a uto) 0 % Nucleated RBCs # 0.0 /100WBC Sodium 129 L (136-145) mmol/L Potassium 2.6 L* (3.5-5.1) mmol/L Chloride 77 L (98-107) mmol/L Carbon Dioxide 38 H (22-29) mmol/L Anion Gap 16.6 (5-19) BUN 33 H (6-20) mg/dL Creatinine 1.0 (0.7-1.2) mg/dL GFR Calculation 83.6 L (90-130) mL/min Glucose 111 (65-115) mg/dL Calculated Osmolal ity 276 L (285-295) mOsm/k g Calcium 9.6 (8.5-10.5) mg/dL Total Bilirubin 1.0 (0.15-1.2) mg/dL AST 27 (0-40) U/L ALT 20 (0-41) U/L Alkaline Phosphata se 73 (40-130) IU/L Total Protein 8.2 (6.6-8.7) g/dL Albumin 4.9 (3.5-5.2) g/dL Globulin 3.3 (1.3-4.6) g/dL Lipase 74 H (13-60) U/L Urine Color Dark yellow (Yellow) Urine Appearance Hazy A (CLEAR) Urine pH 5 (5-7) Ur Specific Gravit y 1.020 (1.005-1.030) Urine Protein 1+ H (Negative) Urine Glucose (UA) Norm (Normal) Urine Ketones Negative (Negative) Urine Blood 2+ H (Negative) Urine Nitrate Negative (Negative) Urine Bilirubin 1+ H (Negative) Urine Urobilinogen Norm (Negative) mg/dL Ur Leukocyte Alaina ase Negative (Negative) Urine RBC 0-4 H (0-2) /hpf Urine WBC None (0-5) /hpf Ur Squamous Epith Cells 0-4 H (0-5) /hpf Amorphous Sediment Not Reportable Urine Bacteria 1+ H (NONE) /hpf Hyaline Casts 80-100 H /lpf 02/10/21 Range/Units 21:50 WBC (4.0-10.0) 10^3/ uL RBC (4.1-5.3) 10^6/u L Hgb (11.7-16.6) g/dL Hct (42.0-52.0) % MCV (80-94) fL MCH (28.0-34.0) pg MCHC (30.0-36.0) g/dL RDW (12.1-15.1) % Plt Count (130-400) 10^3/c mm MPV (7.4-10.4) fL Neut % (Auto) % Lymph % (Auto) % [place] % (Auto) % Eos % (Auto) % Baso % (Auto) % Neut # (Auto) (1.8-7.7) 10^3/u L Lymph # (Auto) (0.8-4.8) 10^3/u L [place] # (Auto) (0.2-0.9) 10^3/u L Eos # (Auto) (0.0-0.8) 10^3/u L Baso # (Auto) (0.0-0.1) 10^3/u L Nucleated RBC % (a uto) % Nucleated RBCs # /100WBC Sodium 129 L (136-145) mmol/L Potassium 2.9 L (3.5-5.1) mmol/L Chloride 87 L (98-107) mmol/L Carbon Dioxide 32 H (22-29) mmol/L Anion Gap 12.9 (5-19) BUN 28 H (6-20) mg/dL Creatinine 0.8 (0.7-1.2) mg/dL GFR Calculation 108.2 (90-130) mL/min Glucose 89 (65-115) mg/dL Calculated Osmolal ity 273 L (285-295) mOsm/k g Calcium 7.7 L (8.5-10.5) mg/dL Total Bilirubin 0.8 (0.15-1.2) mg/dL AST 23 (0-40) U/L ALT 15 (0-41) U/L Alkaline Phosphata se 57 (40-130) IU/L Total Protein 6.4 L D (6.6-8.7) g/dL Albumin 4.0 (3.5-5.2) g/dL Globulin 2.4 (1.3-4.6) g/dL Lipase (13-60) U/L Urine Color (Yellow) Urine Appearance (CLEAR) Urine pH (5-7) Ur Specific Gravit y (1.005-1.030) Urine Protein (Negative) Urine Glucose (UA) (Normal) Urine Ketones (Negative) Urine Blood (Negative) Urine Nitrate (Negative) Urine Bilirubin (Negative) Urine Urobilinogen (Negative) mg/dL Ur Leukocyte Alaina ase (Negative) Urine RBC (0-2) /hpf Urine WBC (0-5) /hpf Ur Squamous Epith Cells (0-5) /hpf Amorphous Sediment Urine Bacteria (NONE) /hpf Hyaline Casts /lpf Imaging Data^: CT Abd/Pel: Attestation: I personally reviewed and interpreted this imaging study as follows: Radiologist's impression: [address] [address] [address] Scan Report Signed Patient: Jose G Pedraza Unit #: [id number] : 1980 Age/Sex: 40 / M ADM Date: 02/10/21 Loc: ER Room/Bed: Attending Dr: Ordering Provider/Ordering MD: Keegan Brooks Date of Service: 02/10/21 Procedure(s): CT abdomen pelvis w con* [id number] Accession Number(s): [id number] Report Number: [id number] PROCEDURE INFORMATION: Exam: CT Abdomen And Pelvis With Contrast Exam date and time: 02/10/2021 9:36 PM Age: 40 years old Clinical indication: Nausea and vomiting; Abdominal pain; Patient HX: Periumbilical pain with n/v/d, TECHNIQUE: Imaging protocol: Computed tomography of the abdomen and pelvis with contrast. Radiation optimization: All CT scans at this facility use at least one of these dose optimization techniques: automated exposure control; mA and/or kV adjustment per patient size (includes targeted exams where dose is matched to clinical indication); or iterative reconstruction. Contrast material: OMNI 300; Contrast volume: 95 ml; Contrast route: INTRAVENOUS (IV); COMPARISON: CT abdomen pelvis w con* [id number] 11/24/2020 2:34 PM RADIATION DOSE METRICS: Total DLP (mGy-cm): 661.72 FINDINGS: Liver: Normal. No mass. Gallbladder and bile ducts: Normal. No calcified stones. No ductal dilation. Pancreas: Normal. No ductal dilation. Spleen: Normal. No splenomegaly. Adrenal glands: Normal. No mass. Kidneys and ureters: Normal. No hydronephrosis. Stomach and bowel: Unremarkable. No obstruction. No mucosal thickening. Appendix: The appendix is not visualized. No secondary signs of appendicitis. Intraperitoneal space: Unremarkable. No free air. No significant fluid collection. Vasculature: Unremarkable. No abdominal aortic aneurysm. Lymph nodes: Unremarkable. No enlarged lymph nodes. Urinary bladder: Unremarkable as visualized. Reproductive: Unremarkable as visualized. Bones/joints: Unremarkable. No acute fracture. Soft tissues: Unremarkable. CT/CT abdomen pelvis w con* [id number] IMPRESSION: 1. No acute abnormality identified in the abdomen or pelvis. Radiation Dose CTDIVOL = (mGy): DLP = 661.72 (mGy-cm) Dictated By: Eber Villalba Signed By: Eber Villalba Signed Date/Time: 02/10/212218 DD/ 17 EKG Data^: EKG 1: Attestation: I personally reviewed and interpreted this EKG as follows: EKG interpretation date: 02/10/21 EKG interpretation time: 20:40 Interpretation: Sinus rhythm, 92 bpm, no ST segment elevation or depression noted. Discharge Plan Discharge Patient Disposition: Home Clinical Impression: Viral gastroenteritis Condition: Stable Prescriptions: New Reglan 10 mg tablet 10 mg PO Q6H PRN (Reason: nausea and vomiting) Qty: 15 RF: 0 No Action alprazolam 0.5 mg tablet 0.5 mg PO TID PRN (Reason: Anxiety) RF: 0 paroxetine HCl 20 mg tablet 20 mg PO DAILY RF: 0 promethazine 25 mg tablet 25 mg PO Q6H PRN (Reason: nausea and vomiting) Qty: 10 RF: 0 famotidine [Pepcid] 20 mg tablet 20 mg PO BID Qty: 20 RF: 0 hydrocodone-acetaminophen 5-325 mg tablet 1 tab PO Q8H PRN (Reason: Pain) RF: 0 mirtazapine 15 mg tablet 15 mg PO BEDTIME RF: 0 ondansetron 4 mg tablet,disintegrating 4 mg PO Q8H PRN (Reason: nausea/vomiting) RF: 0 fluoxetine 20 mg capsule 20 mg PO DAILY RF: 0 sucralfate 100 mg/mL suspension See Rx Instructions .ROUTE .COMPLEX RF: 0 Discharge Orders: Discharge ED (Routine); Ordered 02/10/21 Ordered By: Keegan Brooks Referrals: Emily Hannah, [facility] [Primary Care Provider] - Discharge Diet: Advance as tolerated and Clear Liquid Discharge Activity: Increase activity as tolerated Patient Instructions: Gastroenteritis (ED), Acute Nausea and Vomiting (ED) Activity Restrictions/Additional Instructions: Follow-up with medical provider at your scheduled appointment tomorrow and have electrolyte labs checked (sodium and potassium levels). take medications as prescribed. Make sure you are drinking plenty of fluids and staying hydrated. Return to the ER or your medical provider if condition worsens. Please read and understand discharge instructions. Thank you for choosing [facility] for your healthcare needs today. Please realize this is an emergency room and that we are providing you with a medical screening exam and this may not be complete and all inclusive of all the testing and or work up that you may need to determine your ailment or severity of your illness. It is very important that you follow up as instructed or that you return to the Emergency Department should you have concerns or if your condition changes or worsens in any way. Coding Level of Care Code ED [employer] Assistant for [facility] Fwd Exam Comprehensive
[2021-02-10] MEDS: ondansetron 2 mg/ML SDV 2 mL 4 MG IVP (19:25)
[2021-02-10] MEDS: sodium chloride 0.9% 1,000 ML 999 ML IV ×2 (19:26→20:40)
[2021-02-10 19:39] LABS: Basophils % 0.3 %; Eosinophils % 0.1 %; Hematocrit 55.9 % (42.0-52.0); Hemoglobin 20.7 g/dL (11.7-16.6); Lymphocytes # 2.1 10^3/uL (0.8-4.8); Lymphocytes % 17.9 %; Mean Corpuscular Hemoglobin 33.5 pg (28.0-34.0); Mean Corpuscular Volume 90.6 fL (80-94); Monocytes # 1.3 10^3/uL (0.2-0.9); Monocytes % 11.5 %; Neutrophils # 8.11 10^3/uL (1.8-7.7); Neutrophils % 69.9 %; Nucleated Red Blood Cells % 0 %; Platelet Count 261 10^3/cmm (130-400); Red Blood Count 6.17 10^6/uL (4.1-5.3); Red Cell Distribution Width 11.4 % (12.1-15.1); White Blood Count 11.6 10^3/uL (4.0-10.0)
[2021-02-10 19:50] LABS: Bilirubin Urine 1+ (Negative); Blood Urine 2+ (Negative); Glucose Urine UA Norm (Normal); Ketones Urine Negative (Negative); Leukocyte Esterase Urine Negative (Negative); Nitrate Urine Negative (Negative); Protein Urine 1+ (Negative); Urine Appearance Hazy (CLEAR); Urine Color Dark Yellow (Yellow); Urobilinogen Urine Norm (Negative); pH Urine 5 (5-7)
[2021-02-10 20:00] VITALS: BP 143/87; PULSE 88; RESP 25; O2SAT 98
[2021-02-10 20:06] LABS: Alanine Aminotransferase 20 U/L (0-41); Albumin Level 4.9 g/dL (3.5-5.2); Alkaline Phosphatase 73 IU/L (40-130); Anion Gap 16.6 (5-19); Aspartate Amino Transferase 27 U/L (0-40); Blood Urea Nitrogen 33 mg/dL (6-20); Calcium 9.6 mg/dL (8.5-10.5); Carbon Dioxide 38 mmol/L (22-29); Chloride 77 mmol/L (98-107); Globulin 3.3 g/dL (1.3-4.6); Glomerular Filtration Rate 83.6 mL/min (90-130); Glucose 111 mg/dL (65-115); Lipase 74 U/L (13-60); Osmolality Calculated 276 mOsm/kg (285-295); Sodium 129 mmol/L (136-145); Total Protein 8.2 g/dL (6.6-8.7)
[2021-02-10 20:07] LABS: Slide Review Slide Review Perform
[2021-02-10 20:09] LABS: Add Urine Culture? No; Bacteria Urine 1+ /hpf; Hyaline Casts Urine 80-100 /lpf; RBC Urine 0-4 /hpf (0-2); Squamous Epithelial Cell Urine 0-4 /hpf (0-5)
[2021-02-10 20:12] LABS: Potassium 2.6 mmol/L (3.5-5.1)
--- NOTE | 2021-02-10 20:20 | ECG_ITS ---
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 Measurements Intervals [place] Rate: 92 P: 81 NJ: 88 QRS: 91 QRSD: 96 T: 81 QT: 461 QTc: 571 Interpretive Statements SINUS RHYTHM WITH SHORT [place] INTERVAL BORDERLINE RIGHT AXIS DEVIATION [QRS AXIS > 90] INCOMPLETE RIGHT BUNDLE BRANCH BLOCK [90+ ms QRS DURATION, TERMINAL R IN V1/V2, 40+ ms S IN I/aVL/V4/V5/V6] ST DEPRESSION, CONSIDER SUBENDOCARDIAL INJURY [0.1+ mV ST DEPRESSION] PROLONGED QT INTERVAL Compared to ECG 01/28/2020 21:18:44 Short [place] interval now present Incomplete right bundle-branch block now present ST (T wave) deviation now present Prolonged QT interval now present T-wave abnormality no longer present Electronically Signed On 02-11-2021 9:33:34 CDT by Anuel Herrera M.D. [id number]
[2021-02-10] MEDS: metoclopramide 5 mg/mL SDV 2 mL 10 MG IVP (20:40)
[2021-02-10] MEDS: lidocaine 2% viscous 15 ML, aluminum-mag hydrox-simethicon 30 ML, sucralfate oral liq 1 GM PO (20:40)
[2021-02-10] MEDS: lidocaine 1% 5 ML in potassium chloride premix 100 ML 50 ML IV (20:41)
[2021-02-10 21:00] VITALS: BP 131/76; PULSE 66; RESP 16; O2SAT 95
--- NOTE | 2021-02-10 21:33 | CTR_ITS ---
PROCEDURE INFORMATION: Exam: CT Abdomen And Pelvis With Contrast Exam date and time: 02/10/2021 9:36 PM Age: 40 years old Clinical indication: Nausea and vomiting; Abdominal pain; Patient HX: Periumbilical pain with n/v/d, TECHNIQUE: Imaging protocol: Computed tomography of the abdomen and pelvis with contrast. Radiation optimization: All CT scans at this facility use at least one of these dose optimization techniques: automated exposure control; mA and/or kV adjustment per patient size (includes targeted exams where dose is matched to clinical indication); or iterative reconstruction. Contrast material: OMNI 300; Contrast volume: 95 ml; Contrast route: INTRAVENOUS (IV); COMPARISON: CT abdomen pelvis w con* [id number] 11/24/2020 2:34 PM RADIATION DOSE METRICS: Total DLP (mGy-cm): 661.72 FINDINGS: Liver: Normal. No mass. Gallbladder and bile ducts: Normal. No calcified stones. No ductal dilation. Pancreas: Normal. No ductal dilation. Spleen: Normal. No splenomegaly. Adrenal glands: Normal. No mass. Kidneys and ureters: Normal. No hydronephrosis. Stomach and bowel: Unremarkable. No obstruction. No mucosal thickening. Appendix: The appendix is not visualized. No secondary signs of appendicitis. Intraperitoneal space: Unremarkable. No free air. No significant fluid collection. Vasculature: Unremarkable. No abdominal aortic aneurysm. Lymph nodes: Unremarkable. No enlarged lymph nodes. Urinary bladder: Unremarkable as visualized. Reproductive: Unremarkable as visualized. Bones/joints: Unremarkable. No acute fracture. Soft tissues: Unremarkable. CT/CT abdomen pelvis w con* [id number] IMPRESSION: 1. No acute abnormality identified in the abdomen or pelvis. Radiation Dose CTDIVOL = (mGy): DLP = 661.72 (mGy-cm)
[2021-02-10] MEDS: iohexol 300 mg/mL 100 mL Btl IV (21:42)
[2021-02-10 22:00] VITALS: BP 133/94; RESP 17; O2SAT 98
[2021-02-10] MEDS: sodium chloride 0.9% 500 ML IV ×2 (22:07→22:52)
[2021-02-10 23:00] VITALS: BP 135/90; PULSE 67; RESP 16; O2SAT 98
[2021-02-10 23:20] LABS: Alanine Aminotransferase 15 U/L (0-41); Alkaline Phosphatase 57 IU/L (40-130); Anion Gap 12.9 (5-19); Aspartate Amino Transferase 23 U/L (0-40); Blood Urea Nitrogen 28 mg/dL (6-20); Calcium 7.7 mg/dL (8.5-10.5); Carbon Dioxide 32 mmol/L (22-29); Chloride 87 mmol/L (98-107); Globulin 2.4 g/dL (1.3-4.6); Glomerular Filtration Rate 108.2 mL/min (90-130); Glucose 89 mg/dL (65-115); Osmolality Calculated 273 mOsm/kg (285-295); Sodium 129 mmol/L (136-145); Total Bilirubin 0.8 mg/dL (0.15-1.2); Total Protein 6.4 g/dL (6.6-8.7)
[2021-02-10 23:33] LABS: Potassium 2.9 mmol/L (3.5-5.1)
[2021-02-11 00:08] VITALS: BP 135/90; PULSE 67; RESP 16; O2SAT 98
== END 2021-02-10 23:55 | disposition home or self-care (01) ==
PROVIDERS: Emergency Provider Physician Assistant; PCP Nurse Practitioner Family
DX: A08.4 Viral intestinal infection, unspecified (principal); F17.210 Nicotine dependence, cigarettes, uncomplicated
CPT/HCPCS: 74177; 80053; 81001; 83690; 85025; 93005; 96361; 96365; 96366; 96375; 99284; J2405; J2765; J3480; J7030; J7040; Q9967

== ENCOUNTER 2023-12-09 19:02 | Emergency (ER) | payer BC, MEDICAID, SELFPAY ==
[2023-12-09 19:08] VITALS: BP 128/86; PULSE 109; RESP 16; TEMP 36.8; O2SAT 98; BMI 16.3
--- NOTE | 2023-12-09 19:48 | CTR_ITS ---
PROCEDURE INFORMATION: Exam: CT Abdomen And Pelvis With Contrast Exam date and time: 12/09/2023 8:12 PM Age: 43 years old Clinical indication: Abdominal pain; Localized; Upper; Additional info: Epigastric pain vomiting d TECHNIQUE: Imaging protocol: Computed tomography of the abdomen and pelvis with contrast. Radiation optimization: All CT scans at this facility use at least one of these dose optimization techniques: automated exposure control; mA and/or kV adjustment per patient size (includes targeted exams where dose is matched to clinical indication); or iterative reconstruction. Contrast material: OMNI 350; Contrast volume: 100 ml; Contrast route: INTRAVENOUS (IV); COMPARISON: CT abdomen pelvis w con* [id number] 02/10/2021 9:56 PM RADIATION DOSE METRICS: Total DLP (mGy-cm): 306.94 FINDINGS: Liver: Normal. No mass. Gallbladder and bile ducts: Normal. No calcified stones. No ductal dilation. Pancreas: Normal. No ductal dilation. Spleen: Normal. No splenomegaly. Adrenal glands: Normal. No mass. Kidneys and ureters: Normal. No hydronephrosis. Stomach and bowel: Unremarkable. No obstruction. No mucosal thickening. Appendix: No evidence of appendicitis. Intraperitoneal space: Unremarkable. No free air. No significant fluid collection. Vasculature: Unremarkable. No abdominal aortic aneurysm. Lymph nodes: Unremarkable. No enlarged lymph nodes. Urinary bladder: Unremarkable as visualized. Reproductive: Unremarkable as visualized. Bones/joints: Unremarkable. No acute fracture. Soft tissues: Unremarkable. CT/CT abdomen pelvis w con* [id number] IMPRESSION: No acute findings.
[2023-12-09] MEDS: sodium chloride 0.9% 1,000 ML 999 ML IV ×2 (20:01→21:37)
[2023-12-09 20:04] LABS: Basophils % 0.3 %; Eosinophils % 0.2 %; Hematocrit 50.8 % (37-53); Lymphocytes # 1.7 10^3/uL (0.8-4.8); Lymphocytes % 14.5 %; Mean Corpuscular HGB Conc 37.2 g/dL (30-55); Mean Corpuscular Hemoglobin 33.5 pg (27-33); Mean Corpuscular Volume 89.9 fl (82-101); Mean Platelet Volume 10.1 fL (7.4-10.4); Monocytes # 1.4 10^3/uL (0.2-0.9); Monocytes % 12.2 %; Neutrophils # 8.34 10^3/uL (1.8-7.7); Neutrophils % 72.5 %; Nucleated Red Blood Cells % 0 %; Platelet Count 233 10^3/cmm (157-399); Red Blood Count 5.65 10^6/uL (3.85-5.65); Red Cell Distribution Width 10.9 % (12.1-15.1); White Blood Count 11.49 10^3/uL (3.29-11.43)
[2023-12-09] MEDS: ondansetron 2 mg/ML SDV 2 mL 4 MG IVP (20:08)
[2023-12-09] MEDS: lidocaine 2% viscous 15 ML, aluminum-mag hydrox-simethicon 30 ML, sucralfate oral liq 1 GM PO (20:08)
[2023-12-09] MEDS: ketorolac 30 mg/mL INJ IVP (20:08)
[2023-12-09] MEDS: iohexol 350 mg/mL 500 mL Btl (per mL) IV (20:13)
[2023-12-09 20:18] LABS: Add Urine Microscopic? YES; Bilirubin Urine Neg (Negative); Blood Urine 2+ (Negative); Glucose Urine UA Norm (Normal); Ketones Urine 1+ (Negative); Leukocyte Esterase Urine Negative (Negative); Nitrate Urine Negative (Negative); Protein Urine Neg (Negative); Specific Gravity, Urine 1.015 (1.005-1.030); Urine Appearance Hazy (CLEAR); Urine Color Dark Yellow (Yellow); Urobilinogen Urine Norm (Negative); pH Urine 6.5 (5-7)
[2023-12-09 20:19] LABS: Amorphous Sediment Urine 2+ /hpf; Amphetamines Screen Urine Negative (Negative); Bacteria Urine 2+ /hpf; Barbiturates Screen Urine Negative (Negative); Benzodiazepines Screen Urine Negative (Negative); Calcium Oxalate Crystals Urine T /hpf; Coarse Granular Casts Urine 0-4 /lpf; Cocaine Screen Urine Negative (Negative); Mucus Urine 1+ /hpf; Opiate Screen Urine Negative (Negative); PCP Screen Urine Negative (Negative); Squamous Epithelial Cell Urine 0-4 /hpf (0-5); THC Screen Urine Positive (Negative); WBC Urine 0-4 /hpf (0-5)
[2023-12-09 20:20] LABS: Add Urine Culture? Yes
[2023-12-09 20:23] LABS: Alanine Aminotransferase 38 U/L (0-41); Albumin Level 4.5 g/dL (3.5-5.2); Alkaline Phosphatase 65 U/L (40-130); Anion Gap 17.7 (5-19); Aspartate Amino Transferase 43 U/L (0-40); Blood Urea Nitrogen 13 mg/dL (6-20); C Reactive Protein 15.4 mg/L (0.0-4.9); Calcium 9.4 mg/dL (8.5-10.5); Carbon Dioxide 33 mmol/L (22-29); Chloride 88 mmol/L (98-107); Creatinine Clr Calc Pharmacy 104.2446; Glomerular Filtration Rate 124.3 mL/min (90-130); Glucose 108 mg/dL (65-115); Lipase 15 U/L (13-60); Osmolality Calculated 283 mOsm/kg (285-295); Sodium 136 mmol/L (136-145); Total Bilirubin 0.7 mg/dL (0.15-1.2); Total Protein 7.5 g/dL (6.6-8.7)
[2023-12-09 20:24] LABS: Potassium 2.7 mmol/L (3.5-5.1)
[2023-12-09] MEDS: lidocaine 1% 5 ML in potassium chloride premix 100 ML 52.5 ML IV (20:37)
[2023-12-09] MEDS: potassium chloride oral liq 20 mEq/15 mL UDC 40 MEQ PO (20:37)
[2023-12-09 20:42] VITALS: BP 128/90; PULSE 75; RESP 16; O2SAT 96
[2023-12-09 22:28] VITALS: BP 128/86; PULSE 69; RESP 16; O2SAT 96
[2023-12-09] MEDS: chlorPROMazine 25 mg Tablet PO (22:44)
[2023-12-09 22:48] VITALS: BP 128/86; PULSE 69; RESP 16; TEMP 36.8; O2SAT 96
--- NOTE | 2023-12-10 17:25 | W.ED.ABDPA2 ---
HPI - Abdominal Pain General: Chief Complaint: Abdominal Pain Stated Complaint: n/v 6 days nothing staying down Time Seen by Provider: 12/09/23 19:36 History of Present Illness: 43 year old male with one week of nausea and vomiting. He had diarrhea at the beginning, but no more. no blood in the vomit. he was seen at an outside facility, and told that his potassium was low. was given one dose of potassium and released. He says that he still can't keep anything down, that he continues to vomit even water. No fever. He complains of epigastric pain. Associated Symptoms: Denies chills, fever(s) and hematochezia Review of Systems Const: Denies: fever(s), chills or body aches Eyes: Denies: change in vision Card: Denies: chest pain or palpitations Resp: Denies: dyspnea, productive cough, non-productive cough or wheezing GI: Denies: hematochezia Skin/Breast: Denies: rash Neuro: Denies: headache(s), weakness in extremities, dizziness or confusion [facility] ED PFSH: Medical History Alcohol abuse Nicotine dependence, cigarettes, uncomplicated History of migraine intermittent, ~ once a month, Tylenol and quiet Anxiety paxil and prn xanax History of seizures no meds now. last ~7 yrs ago Surgical History No pertinent past surgical history Family History Mother Ovarian cancer Father Melanoma Social History Smoking and tobacco/nicotine status: current every day tobacco/nicotine user cigarettes [ Other cigarette details: 10/10 ppd] Alcohol intake: former Former alcohol use details: quit 8 months ago, former 5th day for years Substance/Drug Use: current Substance/Drug use frequency: few times a week Physical Exam Const: COMMON NORMALS: no acute distress GENERAL APPEARANCE: cooperative; not ill appearing and not frail appearing HENMT: COMMON NORMALS: normocephalic, atraumatic and Normal external nose present HEAD & SCALP: normocephalic and atraumatic FACE & SINUS: normal facial exam and face symmetric NOSE: Normal external nose present Eye: COMMON NORMALS: Equal, round and reactive pupils present and EOMs intact bilaterally PUPIL: Yes Equal, round and reactive pupils present Neck/C-Spine: GENERAL: Yes trachea midline Chest: CHEST: Yes Symmetrical chest wall rise Resp: COMMON NORMALS: normal respiratory effort, No retractions, No use of accessory muscles and clear to auscultation bilaterally AUSCULTATION: clear to auscultation bilaterally Cardio: COMMON NORMALS: regular rate and regular rhythm RATE: regular rate RHYTHM: regular rhythm GI: COMMON NORMALS: Normal to inspection, nondistended, normoactive bowel sounds present PALPATION: Yes Tenderness to palpation present (GI) (epigastric) Extremity: COMMON NORMALS: no pedal edema Neuro: TIP COMA SCALE: document GCS findings Tip coma scale eye opening: Spontaneous [place] coma scale verbal response: Orientated Tip coma scale motor response: Obey commands Tip coma scale total score: 15 SENSORY EXAM: Yes extremities (intact) Psych: COMMON NORMALS: speech normal SPEECH: Yes normal speech Skin: COMMON NORMALS: no rashes or lesions noted GENERAL SKIN EXAM: no rashes or lesions noted Course Vital Signs: Vital signs: Vital Signs Temperature 98.2 F 12/09/23 22:48 Pulse Rate 69 12/09/23 22:48 Respiratory Rate 16 12/09/23 22:48 Blood Pressure 128/86 12/09/23 22:48 Pulse Oximetry 96 12/09/23 22:48 Oxygen Delivery Me thod Room Air 12/09/23 19:08 MDM - Abdominal Pain Medical Decision Making On reviewing this patient's chart, he has been seen for similar symptoms before. In the differential would be gastritis versus gastric ulcer, biliary colic or disease, cyclic vomiting syndrome. He has given oral potassium which he kept down, as well as IV potassium. It is obvious that he has been vomiting for quite some time, as he has a hypochloremic hypokalemic metabolic alkalosis. He was also given 2 liters of fluid. GI cocktail helped his epigastric pain. He'll be treated with PPI and sucralfate, thorazine and Zofran for nausea. He iss to take the thorazine scheduled for the next two days. Avoid cannabis use. He'll need to recheck potassium as an outpatient. He is encouraged to follow up for this. Lab Data 12/09/23 19:56 12/09/23 19:56 Labs/Radiology: Radiology Impressions Abdomen/Pelvis CT 12/09/23 19:48 IMPRESSION: No acute findings. Laboratory Results WBC 11.49 10^3/uL (3.29-11.43) H 12/09/23 19:56 RBC 5.65 10^6/uL (3.85-5.65) 12/09/23 19:56 Hgb 18.90 g/dL (11.27-16.99) H 12/09/23 19:56 Hct 50.8 % (37-53) 12/09/23 19:56 MCV 89.9 fl (82-101) 12/09/23 19:56 MCH 33.5 pg (27-33) H 12/09/23 19:56 MCHC 37.2 g/dL (30-55) 12/09/23 19:56 RDW 10.9 % (12.1-15.1) L 12/09/23 19:56 Plt Count 233 10^3/cmm (157-399) 12/09/23 19:56 MPV 10.1 fL (7.4-10.4) 12/09/23 19:56 Neut % (Auto) 72.5 % 12/09/23 19:56 Lymph % (Auto) 14.5 % 12/09/23 19:56 Petroleum % (Auto) 12.2 % 12/09/23 19:56 Eos % (Auto) 0.2 % 12/09/23 19:56 Baso % (Auto) 0.3 % 12/09/23 19:56 Neut # (Auto) 8.34 10^3/uL (1.8-7.7) H 12/09/23 19:56 Lymph # (Auto) 1.7 10^3/uL (0.8-4.8) 12/09/23 19:56 Petroleum # (Auto) 1.4 10^3/uL (0.2-0.9) H 12/09/23 19:56 Eos # (Auto) 0.0 10^3/uL (0.0-0.8) 12/09/23 19:56 Baso # (Auto) 0.0 10^3/uL (0.0-0.1) 12/09/23 19:56 Nucleated RBC % (auto) 0 % 12/09/23 19:56 Nucleated RBCs # 0.0 /100WBC 12/09/23 19:56 Sodium 136 mmol/L (136-145) 12/09/23 19:56 Potassium 2.7 mmol/L (3.5-5.1) L* 12/09/23 19:56 Chloride 88 mmol/L (98-107) L 12/09/23 19:56 Carbon Dioxide 33 mmol/L (22-29) H 12/09/23 19:56 Anion Gap 17.7 (5-19) 12/09/23 19:56 BUN 13 mg/dL (6-20) 12/09/23 19:56 Creatinine 0.7 mg/dL (0.7-1.2) 12/09/23 19:56 GFR Calculation 124.3 mL/min (90-130) 12/09/23 19:56 Glucose 108 mg/dL (65-115) 12/09/23 19:56 Calculated Osmolality 283 mOsm/kg (285-295) L 12/09/23 19:56 Calcium 9.4 mg/dL (8.5-10.5) 12/09/23 19:56 Total Bilirubin 0.7 mg/dL (0.15-1.2) 12/09/23 19:56 AST 43 U/L (0-40) H 12/09/23 19:56 ALT 38 U/L (0-41) 12/09/23 19:56 Alkaline Phosphatase 65 U/L (40-130) 12/09/23 19:56 C-Reactive Protein 15.4 mg/L (0.0-4.9) H 12/09/23 19:56 Total Protein 7.5 g/dL (6.6-8.7) 12/09/23 19:56 Albumin 4.5 g/dL (3.5-5.2) 12/09/23 19:56 Globulin 3.0 g/dL (1.3-4.6) 12/09/23 19:56 Lipase 15 U/L (13-60) 12/09/23 19:56 Urine Color Dark yellow (Yellow) 12/09/23 19:56 Urine Appearance Hazy (CLEAR) A 12/09/23 19:56 Urine pH 6.5 (5-7) 12/09/23 19:56 Ur Specific [place] 1.015 (1.005-1.030) 12/09/23 19:56 Urine Protein Neg (Negative) 12/09/23 19:56 Urine Glucose (UA) Norm (Normal) 12/09/23 19:56 Urine Ketones 1+ (Negative) H 12/09/23 19:56 Urine Blood 2+ (Negative) H 12/09/23 19:56 Urine Nitrate Negative (Negative) 12/09/23 19:56 Urine Bilirubin Neg (Negative) 12/09/23 19:56 Urine Urobilinogen Norm mg/dL (Negative) 12/09/23 19:56 Ur Leukocyte Esterase Negative (Negative) 12/09/23 19:56 Urine RBC 5-10 /hpf (0-2) H 12/09/23 19:56 Urine WBC 0-4 /hpf (0-5) H 12/09/23 19:56 Ur Squamous Epith Cells 0-4 /hpf (0-5) H 12/09/23 19:56 Calcium Oxalate Crystal T /hpf 12/09/23 19:56 Amorphous Sediment 2+ /hpf 12/09/23 19:56 Urine Bacteria 2+ /hpf (NONE) H 12/09/23 19:56 Coarse Granular Casts 0-4 /lpf H 12/09/23 19:56 Urine Mucus 1+ /hpf 12/09/23 19:56 Urine Opiates Screen Negative ng/mL (Negative) 12/09/23 19:56 Ur Barbiturates Screen Negative ng/mL (Negative) 12/09/23 19:56 Ur Phencyclidine Scrn Negative ng/mL (Negative) 12/09/23 19:56 Ur Amphetamines Screen Negative ng/mL (Negative) 12/09/23 19:56 U Benzodiazepines Scrn Negative ng/mL (Negative) 12/09/23 19:56 Urine Cocaine Screen Negative ng/mL (Negative) 12/09/23 19:56 U Marijuana (THC) Screen Positive ng/mL (Negative) H 12/09/23 19:56 All radiology interpretation(s) finalized by discharge Discharge Plan Discharge Patient Disposition: Home Clinical Impression: Vomiting in adult, Abdominal pain, epigastric, Hypokalemia Condition: Stable Prescriptions: New sucralfate 1 gram tablet 1 g PO TID 28 Days Qty: 84 0RF Prevacid 30 mg capsule,delayed release(DR/EC) 30 mg PO DAILY Qty: 30 0RF ondansetron 4 mg tablet,disintegrating 4 mg PO Q6H PRN (Reason: nausea and vomiting) Qty: 14 0RF chlorpromazine 25 mg tablet 25 mg PO TID Qty: 10 0RF Discontinued promethazine 25 mg tablet 25 mg PO Q6H PRN (Reason: nausea and vomiting) Qty: 10 0RF Rx Instructions: take 1 PO every 6 hours PRN nausea and vomiting famotidine [Pepcid] 20 mg tablet 20 mg PO BID Qty: 20 0RF ondansetron 4 mg tablet,disintegrating 4 mg PO Q8H PRN (Reason: nausea/vomiting) sucralfate 100 mg/mL suspension See Rx Instructions .ROUTE .COMPLEX Rx Instructions: 1 g orally before meals and at bedtime. No Action alprazolam 0.5 mg tablet 0.5 mg PO TID PRN (Reason: Anxiety) paroxetine HCl 20 mg tablet 20 mg PO DAILY hydrocodone-acetaminophen 5-325 mg tablet 1 tab PO Q8H PRN (Reason: Pain) mirtazapine 15 mg tablet 15 mg PO BEDTIME fluoxetine 20 mg capsule 20 mg PO DAILY Reglan 10 mg tablet 10 mg PO Q6H PRN (Reason: nausea and vomiting) Qty: 15 0RF Discharge Orders: Discharge ED (Routine); Ordered 12/09/23 Ordered By: Vince Taylor Referrals: Emily Hannah, [facility] [Primary Care Provider] - 1-3 days Patient Instructions: Hypokalemia (ED), Abdominal Pain (ED), Opioid Safety, Pain Management, Vomiting - Adult Activity Restrictions/Additional Instructions: Take chlorpromazine scheduled 3 times daily for the next 48 hours. Use ondansetron as needed for continued nausea. Take sucralfate 30 minutes prior to meals. Other medications as directed. See your doctor next week. Return for continued vomiting despite the above. You will need to have your potassium rechecked at your doctor's office. If you use marijuana, it can exacerbate vomiting in some patients, so we suggest you stop. Coding Level of Care Code ED [employer] for [facility]
== END 2023-12-09 22:49 | disposition home or self-care (01) ==
PROVIDERS: Emergency Provider Emergency Medicine; PCP Nurse Practitioner Family
DX: R11.11 Vomiting without nausea (principal); R10.13 Epigastric pain; E87.6 Hypokalemia; F17.210 Nicotine dependence, cigarettes, uncomplicated
CPT/HCPCS: 74177; 80053; 80306; 81001; 83690; 85025; 86140; 87086; 96365; 96366; 96375; 99285; J1885; J2405; J3480; J7030; Q0161; Q9967

== ENCOUNTER 2024-01-26 19:35 | Emergency (ER) | payer BC, MEDICAID, SELFPAY ==
[2024-01-26 19:58] VITALS: BP 119/86; PULSE 97; RESP 18; TEMP 36.4; O2SAT 95; BMI 19.5
[2024-01-26 20:03] LABS: Hematocrit 51.2 % (37-53); Lymphocytes # 0.7 10^3/uL (0.8-4.8); Lymphocytes % 8.6 %; Mean Corpuscular HGB Conc 37.1 g/dL (30-55); Mean Corpuscular Hemoglobin 33.8 pg (27-33); Mean Corpuscular Volume 91.1 fl (82-101); Mean Platelet Volume 11.2 fL (7.4-10.4); Monocytes # 1.1 10^3/uL (0.2-0.9); Monocytes % 13.8 %; Neutrophils # 6.29 10^3/uL (1.8-7.7); Neutrophils % 77.4 %; Nucleated Red Blood Cells % 0 %; Platelet Count 162 10^3/cmm (157-399); Red Blood Count 5.62 10^6/uL (3.85-5.65); Red Cell Distribution Width 11.5 % (12.1-15.1); White Blood Count 8.13 10^3/uL (3.29-11.43)
[2024-01-26 20:19] LABS: Alanine Aminotransferase 23 U/L (0-41); Albumin Level 4.5 g/dL (3.5-5.2); Alkaline Phosphatase 62 U/L (40-130); Anion Gap 19.7 (5-19); Aspartate Amino Transferase 32 U/L (0-40); Blood Urea Nitrogen 21 mg/dL (6-20); Calcium 9.6 mg/dL (8.5-10.5); Carbon Dioxide 31 mmol/L (22-29); Chloride 80 mmol/L (98-107); Creatinine Clr Calc Pharmacy 138.6416; Globulin 3.9 g/dL (1.3-4.6); Glomerular Filtration Rate 124.3 mL/min (90-130); Glucose 114 mg/dL (65-115); Lipase 16 U/L (13-60); Osmolality Calculated 270 mOsm/kg (285-295); Sodium 128 mmol/L (136-145); Total Bilirubin 0.4 mg/dL (0.15-1.2); Total Protein 8.4 g/dL (6.6-8.7)
[2024-01-26 20:25] LABS: Potassium 2.7 mmol/L (3.5-5.1)
[2024-01-26] MEDS: ondansetron 2 mg/ML SDV 2 mL 4 MG IVP (20:51)
[2024-01-26] MEDS: metoclopramide 5 mg/mL SDV 2 mL 10 MG IVP (20:51)
[2024-01-26] MEDS: diphenhydrAMINE 50 mg/mL SDV 1mL IVP (20:51)
--- NOTE | 2024-01-26 20:54 | ED_ITS ---
HPI - Nausea/Vomiting/Diarrhea 2 General: Chief complaint: Nausea/Vomiting/Diarrhea Stated complaint: n/v 3 days Time Seen by Provider: 01/26/24 20:40 Source: patient Mode of arrival: ambulatory Limitations: no limitations History of Present Illness: 43-year-old male who had history of vomi ting in the past he states he has had vomiting for the last 2 days has had some abdominal cramping he states from the vomiting along with burning in his throat from the vomiting denies any pain currently. He states he had multiple episodes unable to tolerate anything p.o. He denies any worsening proving factors. Associated nausea: Yes Associated symtoms: Reports nausea; Denies chest pain or headache(s) Review of Systems 2 Const: Denies: fever(s), chills, body aches or change in appetite Eyes: Denies: blurry vision or eye discomfort ENMT: Denies: throat pain or dental pain Card: Denies: chest pain Resp: Denies: dyspnea GI: Reports: nausea and vomiting; Denies: abdominal pain or diarrhea Musc: Denies: neck pain or back pain Skin/Breast: Denies: rash Neuro: Denies: headache(s) PFS ED 2 PFSH: Medical History (Updated 01/26/24 @ 22:45 by Kailyn Resendez MD) Alcohol abuse Nicotine dependence, cigarettes, uncomplicated History of migraine intermittent, ~ once a month, Tylenol and quiet Anxiety paxil and prn xanax History of seizures no meds now. last ~7 yrs ago Surgical History No pertinent past surgical history Family History Mother Ovarian cancer Father Melanoma Social History Smoking and tobacco/nicotine status: current every day tobacco/nicotine user cigarettes [ Other cigarette details: 10/10 ppd] Alcohol intake: former Former alcohol use details: quit 8 months ago, former 5th day for years Substance/Drug Use: current Substance/Drug use frequency: few times a week Physical Exam 2 Const: COMMON NORMALS: no acute distress, patient oriented x3 and healthy appearing HENMT: COMMON NORMALS: normocephalic and atraumatic HEAD & SCALP: n ormocephalic and atraumatic Eye: COMMON NORMALS: Equal, round and reactive pupils present and EOMs intact bilaterally PUPIL: Yes Equal, round and reactive pupils present Neck/C-Spine: COMMON NORMALS: full ROM and supple Chest: COMMONS NORMALS: normal inspection of the chest and normal palpation of entire chest wall Resp: COMMON NORMALS: normal respiratory effort, No retractions, No use of accessory muscles and clear to auscultation bilaterally AUSCULTATION: clear to auscultation bilaterally Cardio: COMMON NORMALS: regular rate, regular rhythm and No murmurs present (Cardio) RATE: regular rate RHYTHM: regular rhythm GI: COMMON NORMALS: Normal to inspection, nondistended, normoactive bowel sounds present, Soft to palpation, non-tender and no masses PALPATION: Yes Soft to palpation Extremity: COMMON NORMALS: normal to inspection and full ROM Neuro: COMMON NORMALS: patient oriented x3, moves all extremities and no focal motor deficits Psych: COMMON NORMALS: mental status grossly normal, Normal thought process present and cooperative THOUGHT PROCESS: Normal thought process present Skin: COMMON NORMALS: no rashes or lesions noted and no wounds GENERAL SKIN EXAM: no rashes or lesions noted Course 2 Vital Signs: Vital signs: Vital Signs Temperature 97.6 F 01/26/24 19:58 Pulse Rate 62 01/26/24 22:00 Respiratory Rate 20 H 01/26/24 22:00 Blood Pressure 119/86 01/26/24 19:58 Pulse Oximetry 95 01/26/24 22:00 Oxygen Delivery Me thod Room Air 01/26/24 22:00 MDM - Nausea/Vomiting/Diarrhea Medical Decision Making Patient presents here with vomiting he is also hyponatremic hypotension clinically feels improved after IV fluids he is able to tolerate the potassium tablet here he had some vomiting here I did recommend admission with his ongoing vomiting and hyponatremia hypokalemia patient states he feels improved would like to go home and try to take potassium supplement home with Zofran we will prescribe him those he is informed if he is worsening he is to return he understands agrees to plan. Lab Data 01/26/24 19:56 01/26/24 19:56 Laboratory Results WBC 8.13 10^3/uL (3.29-11.43) 01/26/24 19:56 RBC 5.62 10^6/uL (3.85-5.65) 01/26/24 19:56 Hgb 19.00 g/dL (11.27-16.99) H 01/26/24 19:56 Hct 51.2 % (37-53) 01/26/24 19:56 MCV 91.1 fl (82-101) 01/26/24 19:56 MCH 33.8 pg (27-33) H 01/26/24 19:56 MCHC 37.1 g/dL (30-55) 01/26/24 19:56 RDW 11.5 % (12.1-15.1) L 01/26/24 19:56 Plt Count 162 10^3/cmm (157-399) 01/26/24 19:56 MPV 11.2 fL (7.4-10.4) H 01/26/24 19:56 Neut % (Auto) 77.4 % 01/26/24 19:56 Lymph % (Auto) 8.6 % 01/26/24 19:56 [place] % (Auto) 13.8 % 01/26/24 19:56 Eos % (Auto) 0.0 % 01/26/24 19:56 Baso % (Auto) 0.0 % 01/26/24 19:56 Neut # (Auto) 6.29 10^3/uL (1.8-7.7) 01/26/24 19:56 Lymph # (Auto) 0.7 10^3/uL (0.8-4.8) L 01/26/24 19:56 [place] # (Auto) 1.1 10^3/uL (0.2-0.9) H 01/26/24 19:56 Eos # (Auto) 0.0 10^3/uL (0.0-0.8) 01/26/24 19:56 Baso # (Auto) 0.0 10^3/uL (0.0-0.1) 01/26/24 19:56 Nucleated RBC % (auto) 0 % 01/26/24 19:56 Nucleated RBCs # 0.0 /100WBC 01/26/24 19:56 Sodium 128 mmol/L (136-145) L 01/26/24 19:56 Potassium 2.7 mmol/L (3.5-5.1) L* 01/26/24 19:56 Chloride 80 mmol/L (98-107) L 01/26/24 19:56 Carbon Dioxide 31 mmol/L (22-29) H 01/26/24 19:56 Anion Gap 19.7 (5-19) H 01/26/24 19:56 BUN 21 mg/dL (6-20) H 01/26/24 19:56 Creatinine 0.7 mg/dL (0.7-1.2) 01/26/24 19:56 GFR Calculation 124.3 mL/min (90-130) 01/26/24 19:56 Glucose 114 mg/dL (65-115) 01/26/24 19:56 Calculated Osmolality 270 mOsm/kg (285-295) L 01/26/24 19:56 Calcium 9.6 mg/dL (8.5-10.5) 01/26/24 19:56 Magnesium 2.6 mg/dL (1.7-2.3) H 01/26/24 19:39 Total Bilirubin 0.4 mg/dL (0.15-1.2) 01/26/24 19:56 AST 32 U/L (0-40) 01/26/24 19:56 ALT 23 U/L (0-41) 01/26/24 19:56 Alkaline Phosphatase 62 U/L (40-130) 01/26/24 19:56 Total Protein 8.4 g/dL (6.6-8.7) 01/26/24 19:56 Albumin 4.5 g/dL (3.5-5.2) 01/26/24 19:56 Globulin 3.9 g/dL (1.3-4.6) 01/26/24 19:56 Lipase 16 U/L (13-60) 01/26/24 19:56 No radiology studies performed this visit Discharge Plan Discharge Patient Disposition: Home Clinical Impression: Vomiting in adult, Hypokalemia, Hyponatremia Condition: Stable Prescriptions: New ondansetron 4 mg tablet,disintegrating 4 mg PO Q6H PRN (Reason: nausea and vomiting) Qty: 14 0RF potassium chloride 20 mEq tablet extended release 20 meq PO BID Qty: 10 0RF No Action alprazolam 0.5 mg tablet 0.5 mg PO TID PRN (Reason: Anxiety) paroxetine HCl 20 mg tablet 20 mg PO DAILY hydrocodone-acetaminophen 5-325 mg tablet 1 tab PO Q8H PRN (Reason: Pain) mirtazapine 15 mg tablet 15 mg PO BEDTIME fluoxetine 20 mg capsule 20 mg PO DAILY Reglan 10 mg tablet 10 mg PO Q6H PRN (Reason: nausea and vomiting) Qty: 15 0RF Prevacid 30 mg capsule,delayed release(DR/EC) 30 mg PO DAILY Qty: 30 0RF ondansetron 4 mg tablet,disintegrating 4 mg PO Q6H PRN (Reason: nausea and vomiting) Qty: 14 0RF chlorpromazine 25 mg tablet 25 mg PO TID Qty: 10 0RF Discharge Orders: Discharge ED (Routine); Ordered 01/26/24 Ordered By: Kailyn Resendez Referrals: Emily Hannah [employer] [Primary Care Provider] - Discharge Diet: Advance as tolerated Discharge Activity: Resume usual activity Patient Instructions: Hyponatremia (ED), Hypokalemia (ED), Acute Nausea and Vomiting (ED) Coding Level of Care Code ED [employer] for [facility]
[2024-01-26] MEDS: sodium chloride 0.9% 1,000 ML 999 ML IV ×2 (20:56→21:42)
[2024-01-26 21:01] LABS: Magnesium 2.6 mg/dL (1.7-2.3)
[2024-01-26] MEDS: potassium chloride ER 20 mEq Tablet 60 MEQ PO (21:23)
[2024-01-26 21:27] VITALS: PULSE 81; RESP 17; O2SAT 98
[2024-01-26 22:00] VITALS: PULSE 62; RESP 20; O2SAT 95
[2024-01-26] MEDS: LORazepam 2 mg/mL INJ 10 mL MDV 1 MG IVP (22:51)
[2024-01-26 22:59] VITALS: BP 107/78; PULSE 69; RESP 16; O2SAT 98
== END 2024-01-26 22:59 | disposition home or self-care (01) ==
PROVIDERS: Emergency Provider Emergency Medicine; PCP Nurse Practitioner Family
DX: R11.11 Vomiting without nausea (principal); F17.210 Nicotine dependence, cigarettes, uncomplicated; E87.6 Hypokalemia; E87.1 Hypo-osmolality and hyponatremia
CPT/HCPCS: 36415; 80053; 83690; 83735; 85025; 96361; 96374; 96375; 99284; J1200; J2060; J2405; J2765; J7030

== ENCOUNTER 2024-01-28 12:32 | Observation (INO) | payer BC, MEDICAID, SELFPAY ==
[2024-01-28] VITALS (7 sets, daily range): BP systolic 116–159; BP diastolic 90–98; PULSE 59–98; RESP 16–19; TEMP 36.4–36.6; O2SAT 93–99; BMI 19.5
--- NOTE | 2024-01-28 12:46 | W.ED.ABDPA2 ---
HPI - Abdominal Pain General: Chief Complaint: Abdominal Pain Stated Complaint: vomiting Time Seen by Provider: 01/28/24 12:40 History of Present Illness: 43-year-old man with a history of anxiety and recurrent vomiting who presents to the emergency room with nausea and vomiting. Says he was here couple of days ago and his potassium was low and was offered admission but he said he could not stay at the time but was told to come back if he did not get better. He says he is continue to have vomiting. He has epigastric abdominal pain. No diarrhea. No fever. No chest pain. No altered mental status. Review of Systems Narrative: Constitutional symptoms: Negative except as documented in HPI. Skin symptoms: Negative except as documented in HPI. Eye symptoms: Negative except as documented in HPI. ENMT symptoms: Negative except as documented in HPI. Respiratory symptoms: Negative except as documented in HPI. Cardiovascular symptoms: Negative except as documented in HPI. Gastrointestinal symptoms: Negative except as documented in HPI. Genitourinary symptoms: Negative except as documented in HPI. Musculoskeletal symptoms: Negative except as documented in HPI. Neurologic symptoms: Negative except as documented in HPI. Psychiatric symptoms: Negative except as documented in HPI. Endocrine symptoms: Negative except as documented in HPI. [facility] ED PFSH: Medical History (Updated 01/28/24 @ 14:31 by Micheal Saenz MD) Alcohol abuse Nicotine dependence, cigarettes, uncomplicated History of migraine intermittent, ~ once a month, Tylenol and quiet Anxiety paxil and prn xanax History of seizures no meds now. last ~7 yrs ago Surgical History No pertinent past surgical history Family History Mother Ovarian cancer Father Melanoma Social History Smoking and tobacco/nicotine status: current every day tobacco/nicotine user cigarettes [ Other cigarette details: 10/10 ppd] Alcohol intake: former Former alcohol use details: quit 8 months ago, former 5th day for years Substance/Drug Use: current Substance/Drug use frequency: few times a week Physical Exam Narrative: EXAM NARRATIVE: General: Alert, no acute distress. Skin: Warm, dry. Head: Normocephalic, atraumatic. Neck: Supple, trachea midline. Eye: Extraocular movements are intact. Ears, nose, mouth and throat: Dry oral mucosa. Cardiovascular: Regular, Normal peripheral perfusion. Respiratory: Lungs are clear to auscultation, respirations are non-labored, breath sounds are equal, Symmetrical chest wall expansion. Gastrointestinal: Soft, some mild epigastric abdominal pain,, Non distended, Normal bowel sounds. Musculoskeletal: Normal ROM, no deformity. Neurological: Alert and oriented, No focal neurological deficit observed. Psychiatric: Cooperative, appropriate mood & affect. Course Vital Signs: Vital signs: Vital Signs Temperature 98 F 01/28/24 12:43 Pulse Rate 95 01/28/24 12:43 Respiratory Rate 18 01/28/24 14:19 Blood Pressure 116/96 01/28/24 12:43 Pulse Oximetry 99 01/28/24 14:19 Oxygen Delivery Me thod Room Air 01/28/24 12:43 MDM - Abdominal Pain Medical Decision Making Medical decision making: Differential diagnosis for this patient with nausea and vomiting including but not limited to and based on the above HPI, review of systems and physical exam: Urinary tract infection. Appendicitis. Cholecystis. colitis. small bowel obstruction. crohn's flare. pancreatitis. gastritis. peptic ulcer. cyclic vomiting. Viral illness. Influenza. COVID. - Workup - labwork and imaging ordered to evaluate, rule in and rule out above pathologies. Lab Review: Laboratory results were reviewed and interpreted by myself the emergency room physician. Sodium is low at 129. Potassium is low at 2.8. Chloride is low at 88. BUN and creatinine are 18 and 0.6. Urinalysis is positive for marijuana. Patient states he smokes only once a week and this is not what causes his vomiting I reviewed the patient's medical record. Reexamination: Patient remained stable. No increased work of breathing. Still some dry oral mucosa. No altered mental status. No focal motor deficits. Lab Data 01/28/24 12:56 01/28/24 12:56 Labs/Radiology: Laboratory Results WBC 4.27 10^3/uL (3.29-11.43) 01/28/24 12:56 RBC 5.39 10^6/uL (3.85-5.65) 01/28/24 12:56 Hgb 17.80 g/dL (11.27-16.99) H 01/28/24 12:56 Hct 48.4 % (37-53) 01/28/24 12:56 MCV 89.8 fl (82-101) 01/28/24 12:56 MCH 33.0 pg (27-33) 01/28/24 12:56 MCHC 36.8 g/dL (30-55) 01/28/24 12:56 RDW 11.4 % (12.1-15.1) L 01/28/24 12:56 Plt Count 148 10^3/cmm (157-399) L 01/28/24 12:56 MPV 10.8 fL (7.4-10.4) H 01/28/24 12:56 Neut % (Auto) 48.8 % 01/28/24 12:56 Lymph % (Auto) 34.2 % 01/28/24 12:56 Cloud % (Auto) 16.6 % 01/28/24 12:56 Eos % (Auto) 0.0 % 01/28/24 12:56 Baso % (Auto) 0.2 % 01/28/24 12:56 Neut # (Auto) 2.08 10^3/uL (1.8-7.7) 01/28/24 12:56 Lymph # (Auto) 1.5 10^3/uL (0.8-4.8) 01/28/24 12:56 Cloud # (Auto) 0.7 10^3/uL (0.2-0.9) 01/28/24 12:56 Eos # (Auto) 0.0 10^3/uL (0.0-0.8) 01/28/24 12:56 Baso # (Auto) 0.0 10^3/uL (0.0-0.1) 01/28/24 12:56 Nucleated RBC % (auto) 0 % 01/28/24 12:56 Nucleated RBCs # 0.0 /100WBC 01/28/24 12:56 Sodium 129 mmol/L (136-145) L 01/28/24 12:56 Potassium 2.8 mmol/L (3.5-5.1) L* 01/28/24 12:56 Chloride 88 mmol/L (98-107) L 01/28/24 12:56 Carbon Dioxide 29 mmol/L (22-29) 01/28/24 12:56 Anion Gap 14.8 (5-19) 01/28/24 12:56 BUN 18 mg/dL (6-20) 01/28/24 12:56 Creatinine 0.6 mg/dL (0.7-1.2) L 01/28/24 12:56 GFR Calculation 148.5 mL/min (90-130) H 01/28/24 12:56 Glucose 102 mg/dL (65-115) 01/28/24 12:56 Calculated Osmolality 270 mOsm/kg (285-295) L 01/28/24 12:56 Lactic Acid 1.3 mmol/L (0.5-2.2) 01/28/24 12:56 Calcium 9.1 mg/dL (8.5-10.5) 01/28/24 12:56 Total Bilirubin 0.4 mg/dL (0.15-1.2) 01/28/24 12:56 AST 31 U/L (0-40) 01/28/24 12:56 ALT 29 U/L (0-41) 01/28/24 12:56 Alkaline Phosphatase 52 U/L (40-130) 01/28/24 12:56 C-Reactive Protein 7.7 mg/L (0.0-4.9) H 01/28/24 12:56 Total Protein 7.3 g/dL (6.6-8.7) 01/28/24 12:56 Albumin 4.1 g/dL (3.5-5.2) 01/28/24 12:56 Globulin 3.2 g/dL (1.3-4.6) 01/28/24 12:56 Lipase 168 U/L (13-60) H 01/28/24 12:56 Urine Color Yellow (Yellow) 01/28/24 13:10 Urine Appearance Clear (CLEAR) 01/28/24 13:10 Urine pH 6 (5-7) 01/28/24 13:10 Ur Specific Ashley 1.015 (1.005-1.030) 01/28/24 13:10 Urine Protein 1+ (Negative) H 01/28/24 13:10 Urine Glucose (UA) Norm (Normal) 01/28/24 13:10 Urine Ketones 2+ (Negative) H 01/28/24 13:10 Urine Blood Neg (Negative) 01/28/24 13:10 Urine Nitrate Negative (Negative) 01/28/24 13:10 Urine Bilirubin Neg (Negative) 01/28/24 13:10 Urine Urobilinogen Norm mg/dL (Negative) 01/28/24 13:10 Ur Leukocyte Esterase Negative (Negative) 01/28/24 13:10 Urine RBC None /hpf (0-2) 01/28/24 13:10 Urine WBC 0-4 /hpf (0-5) H 01/28/24 13:10 Ur Squamous Epith Cells 0-4 /hpf (0-5) H 01/28/24 13:10 Amorphous Sediment Not Reportable 01/28/24 13:10 Urine Bacteria 1+ /hpf (NONE) H 01/28/24 13:10 Urine Opiates Screen Negative ng/mL (Negative) 01/28/24 13:10 Ur Barbiturates Screen Negative ng/mL (Negative) 01/28/24 13:10 Ur Phencyclidine Scrn Negative ng/mL (Negative) 01/28/24 13:10 Ur Amphetamines Screen Negative ng/mL (Negative) 01/28/24 13:10 U Benzodiazepines Scrn Negative ng/mL (Negative) 01/28/24 13:10 Urine Cocaine Screen Negative ng/mL (Negative) 01/28/24 13:10 U Marijuana (THC) Screen Positive ng/mL (Negative) H 01/28/24 13:10 No radiology studies performed this visit Other Data Assessment and plan: -Normal saline bolus, IV Zofran, IV potassium, IV magnesium. -I discussed the patient with the hospitalist on-call who is admitting the patient. - Discussed findings and plan with patient. Answered any questions. - All laboratory values were reviewed and interpreted personally by myself, the ER physician - All imaging was reviewed and interpreted personally by myself, the ER physician. - Evaluation and treatment of this problem were appropriate in the emergency setting Discharge Plan Discharge Patient Disposition: Admitted As Inpatient Clinical Impression: Hypokalemia, Hyponatremia, Dehydration, Vomiting in adult Condition: Stable Coding Level of Care Code ED Hand I Tube Bender for Kennedy Stokes
[2024-01-28 13:02] LABS: Basophils % 0.2 %; Hematocrit 48.4 % (37-53); Lymphocytes # 1.5 10^3/uL (0.8-4.8); Lymphocytes % 34.2 %; Mean Corpuscular HGB Conc 36.8 g/dL (30-55); Mean Corpuscular Volume 89.8 fl (82-101); Mean Platelet Volume 10.8 fL (7.4-10.4); Monocytes # 0.7 10^3/uL (0.2-0.9); Monocytes % 16.6 %; Neutrophils # 2.08 10^3/uL (1.8-7.7); Neutrophils % 48.8 %; Nucleated Red Blood Cells % 0 %; Platelet Count 148 10^3/cmm (157-399); Red Blood Count 5.39 10^6/uL (3.85-5.65); Red Cell Distribution Width 11.4 % (12.1-15.1); White Blood Count 4.27 10^3/uL (3.29-11.43)
[2024-01-28] MEDS: sodium chloride 0.9% 1,000 ML 999 ML IV (13:10)
[2024-01-28 13:19] LABS: Alanine Aminotransferase 29 U/L (0-41); Albumin Level 4.1 g/dL (3.5-5.2); Alkaline Phosphatase 52 U/L (40-130); Anion Gap 14.8 (5-19); Aspartate Amino Transferase 31 U/L (0-40); Blood Urea Nitrogen 18 mg/dL (6-20); C Reactive Protein 7.7 mg/L (0.0-4.9); Calcium 9.1 mg/dL (8.5-10.5); Carbon Dioxide 29 mmol/L (22-29); Chloride 88 mmol/L (98-107); Globulin 3.2 g/dL (1.3-4.6); Glomerular Filtration Rate 148.5 mL/min (90-130); Glucose 102 mg/dL (65-115); Lipase 168 U/L (13-60); Osmolality Calculated 270 mOsm/kg (285-295); Sodium 129 mmol/L (136-145); Total Bilirubin 0.4 mg/dL (0.15-1.2); Total Protein 7.3 g/dL (6.6-8.7)
[2024-01-28 13:20] LABS: Lactic Sepsis W/Reflex 1.3 mmol/L (0.5-2.2)
--- NOTE | 2024-01-28 13:20 | PC.PHAR ---
PT HAS 2 CURRENT MEDICATIONS ONDANESTRON 4MG AND PREVACID 30MG, WHICH HE IS OUT OF CURRENTLY. PT HAS BEEN ON REGLAN AND CARAFATE IN THE PAST FOR STOMACH PROBLEMS.
[2024-01-28 13:27] LABS: Amphetamines Screen Urine Negative (Negative); Barbiturates Screen Urine Negative (Negative); Benzodiazepines Screen Urine Negative (Negative); Cocaine Screen Urine Negative (Negative); Opiate Screen Urine Negative (Negative); PCP Screen Urine Negative (Negative); THC Screen Urine Positive (Negative)
[2024-01-28] MEDS: ondansetron 2 mg/ML SDV 2 mL 8 MG IVP (13:31)
[2024-01-28 13:34] LABS: Creatinine Clr Calc Pharmacy 161.7486; Potassium 2.8 mmol/L (3.5-5.1)
[2024-01-28 13:53] LABS: Slide Review Slide Review Perform
[2024-01-28 13:54] LABS: Blood Urine Neg (Negative); Glucose Urine UA Norm (Normal); Ketones Urine 2+ (Negative); Nitrate Urine Negative (Negative); Protein Urine 1+ (Negative); Specific Gravity, Urine 1.015 (1.005-1.030); Urine Appearance Clear (CLEAR); Urine Color Yellow (Yellow); pH Urine 6 (5-7)
[2024-01-28 13:55] LABS: Add Urine Culture? No; Bacteria Urine 1+ /hpf; Bilirubin Urine Neg (Negative); Leukocyte Esterase Urine Negative (Negative); Squamous Epithelial Cell Urine 0-4 /hpf (0-5); Urobilinogen Urine Norm (Negative); WBC Urine 0-4 /hpf (0-5)
--- NOTE | 2024-01-28 14:08 | CTR_ITS ---
PROCEDURE INFORMATION: Exam: CT Abdomen And Pelvis Without Contrast Exam date and time: 01/28/2024 2:29 PM Age: 43 years old Clinical indication: Abdominal pain; Epigastric; Additional info: Epigastric pain TECHNIQUE: Imaging protocol: Computed tomography of the abdomen and pelvis without contrast. Radiation optimization: All CT scans at this facility use at least one of these dose optimization techniques: automated exposure control; mA and/or kV adjustment per patient size (includes targeted exams where dose is matched to clinical indication); or iterative reconstruction. COMPARISON: CT abdomen pelvis w con* [id number] 12/09/2023 8:12 PM RADIATION DOSE METRICS: Total DLP (mGy-cm): 309.92 FINDINGS: Lungs: Subsegmental bibasilar atelectasis. The visualized lung bases are otherwise clear. Diaphragm: No evidence of diaphragmatic defect. Liver: No evidence of focal hepatic lesion within limitation of a noncontrast exam. Gallbladder and bile ducts: There is suspected sludge/cholelithiasis. No inflammatory changes to suggest acute cholecystitis. No intrahepatic or extrahepatic biliary dilatation. Pancreas: Grossly unremarkable. Spleen: Grossly unremarkable. Adrenal glands: Grossly unremarkable. Kidneys and ureters: Punctate 1 mm nonobstructive left-sided renal stone. Otherwise no gross renal parenchymal abnormality. No evidence of hydronephrosis or ureteral stone. Stomach and bowel: No evidence of bowel obstruction or perienteric inflammatory changes. There are few loops of thickened proximal small bowel raising the question of an infectious or inflammatory enteritis. Appendix: Normal appendix. Intraperitoneal space: No evidence of free air or fluid collection. Vasculature: No evidence of aneurysmal dilitation of abdominal aorta. Lymph nodes: No evidence of adenopathy. Urinary bladder: Grossly unremarkable. Reproductive: Grossly unremarkable. Bones/joints: No evidence of acute fracture or aggresive osseous lesion. Soft tissues: No evidence of fluid collection or hematoma in the superficial soft tissues. CT/CT abdomen pelvis wo con [id number] IMPRESSION: 1. Possible nonspecific infectious or inflammatory enteritis. Otherwise no evidence of acute abnormality in the abdomen or pelvis within limitations of a noncontrast exam.
[2024-01-28] MEDS: magnesium sulfate premix 2 GM/50 ML PIGGYBACK IV (14:09)
[2024-01-28] MEDS: potassium chloride premix 100 ML 25 MEQ IV (14:10)
[2024-01-28] MEDS: metoclopramide 5 mg/mL SDV 2 mL IVP ×2 (14:19→20:06)
[2024-01-28] MEDS: morphine 4 mg/mL SDV 1 mL 1 MG IVP (14:19)
--- NOTE | 2024-01-28 14:27 | P.HP_ITS ---
Providers/Chief Complaint 2 Primary Care Provider: Emily Hannah BIOLOGICAL TECHNICIAN-C Chief Complaint: vomiting History of Present Illness Jose G Pedraza is a 43 year old male With a past medical history of marijuana use, smoker, who presents [facility] due to abdominal pain, intractable nausea vomiting. Patient tells me that since Monday, has had epigastric abdominal discomfort discomfort, intractable nausea vomiting, denies any fevers, no chills, no lightheadedness, no dizziness, he has reported that 1 episode of vomiting did have blood, no clots, denies any fevers, no chills, he denies adamantly that he drinks alcohol, denies a history of alcohol associated varices, denies IV drug use, he has never had marijuana hyperemesis syndrome, denies a history of diabetes, no recent history of steroid use, no history of trauma, he tells me that his last use of marijuana was yesterday Review of Systems 2 Const: Denies: fever(s) Card: Denies: chest pain Resp: Denies: dyspnea GI: Reports: abdominal pain, nausea, vomiting and hematemesis : Denies: flank pain Neuro: Denies: headache(s) Medications/Allergies Home Medications Medication Instructions Recorded Confirmed Last Taken Type lansoprazole 30 mg capsule,delayed 30 mg PO DAILY #30 caps 12/09/23 01/28/24 Unknown Rx release (Prevacid) ondansetron 4 mg disintegrating 4 mg PO Q6H PRN nausea and 12/09/23 01/28/24 Unknown Rx tablet vomiting #14 tabs Allergies Allergy/AdvReac Type Severity Reaction Status Date / Time carbamazepine [From Tegretol] Allergy ALGY-Rash Verified 01/26/24 20:02 PFSH Acute 2 PFSH: Medical History (Updated 01/28/24 @ 14:47 by Micheal Saenz MD) Alcohol abuse Nicotine dependence, cigarettes, uncomplicated History of migraine intermittent, ~ once a month, Tylenol and quiet Anxiety paxil and prn xanax History of seizures no meds now. last ~7 yrs ago Surgical History No pertinent past surgical history Family History Mother Ovarian cancer Father Melanoma Social History Smoking and tobacco/nicotine status: current every day tobacco/nicotine user cigarettes [ Other cigarette details: 1/2 ppd] Alcohol intake: former Former alcohol use details: quit 8 months ago, former 5th day for years Substance/Drug Use: current Substance/Drug use frequency: few times a week Vitals/I&O/Wt Last Vital Signs Temp 98 F 01/28/24 12:43 Pulse 95 01/28/24 12:43 Resp 18 01/28/24 14:19 BP 116/96 01/28/24 12:43 Pulse Ox 99 01/28/24 14:19 O2 Del Method Room Air 01/28/24 12:43 Weight last 48 hrs Weight 63.503 kg Physical Exam 2 Const: COMMON NORMALS: no acute distress and patient oriented x3 HENMT: COMMON NORMALS: normocephalic HEAD & SCALP: normocephalic Eye: COMMON NORMALS: Equal, round and reactive pupils present and EOMs intact bilaterally Neck/C-Spine: COMMON NORMALS: full ROM and no lymphadenopathy Lymph: LYMPHATIC: no lymphadenopathy noted Resp: COMMON NORMALS: normal respiratory effort, No retractions, No use of accessory muscles and clear to auscultation bilaterally AUSCULTATION: clear to auscultation bilaterally Cardio: COMMON NORMALS: regular rate, regular rhythm, S1 normal heart sound present and S2 normal heart sound present RATE: regular rate RHYTHM: r egular rhythm HEART SOUNDS: S1 normal heart sound present and S2 normal heart sound present GI: COMMON NORMALS: Normal to inspection, nondistended, normoactive bowel sounds present, Soft to palpation and non-tender OTHER: epigastric pain Extremity: COMMON NORMALS: no calf tenderness and no pedal edema Neuro: COMMON NORMALS: patient oriented x3, CN's II-XII intact bilaterally, moves all extremities and no focal motor deficits Psych: COMMON NORMALS: mental status grossly normal Data 01/28/24 12:56 01/28/24 12:56 A&P Assessment and plan (1) Cannabis hyperemesis syndrome concurrent with and due to cannabis abuse: (2) Intractable nausea and vomiting: (3) Hyponatremia: (4) Dehydration: (5) Hypokalemia: (6) Abdominal pain: Qualifiers: Abdominal location: generalized Qualified Code(s): R10.84 - Generalized abdominal pain (7) Hematemesis: Plan intractable nausea vomiting ? Possibly marijuana hyperemesis syndrome ? Possibly pancreatitis given elevated lipase CT scans pending ? Plan ? Clear liquids for now ? Zosolo Reglan Abdominal pain, ? Elevated lipase ? Plan ? CT scan abdomen pelvis, ? Clear liquids for now ? Serial abdominal exams ? Monitor closely Dehydration ? IV fluids Hypokalemia, receiving IV replacement Hematemesis ? Protonix 40 IV twice daily, Exa ?consulted general surgery Dr. Garber Hyponatremia ? IV fluids Marijuana hyperemesis syndrome Full code ? SCDs for DVT prophylaxis, Lovenox relatively contraindicated given history of hematemesis Attestations 2 Medical Necessity Statement*: Patient requires hospitalization, outpatient observation, marijuana hyperemesis syndrome, intractable nausea, vomiting, abdominal pain Diagnoses Cannabis hyperemesis syndrome concurrent with and due to cannabis abuse F12.188 Intractable nausea and vomiting R11.2 Hyponatremia E87.1 Dehydration E86.0 Hypokalemia E87.6 Abdominal pain R10.84 Abdominal location: generalized Hematemesis K92.0
[2024-01-28 14:34] LABS: Procalcitonin 0.08 ng/mL (0-0.5)
[2024-01-28 14:38] LABS: INR 0.86 (0.8-1.2)
[2024-01-28 14:46] LABS: Alcohol Level < 10 mg/dL (0-10)
[2024-01-28] MEDS: lidocaine 1% INJ 10 mL (per mL) INJECTION (14:58)
--- NOTE | 2024-01-28 15:29 | PM.CONSULT ---
Providers/Reason For Consult Consulting Physician/Specialty*: Micheal Saenz MD Reason for Consult*: UGIB, Evaluate for Endoscopy Requesting Physician: Micheal Saenz MD Attending Physician: Micheal Saenz MD Primary Care Provider: Emily HannahP-C History of Present Illness History of Present Illness Jose G Pedraza is a 43 year old male who presents to ED with N/V since Monday, found to have hypokalemia on previous evaluation but was unable to be admitted for treatment. Now with several episodes small-volume hemetemesis over the last few days. Patient has history of alcohol use, sober for the last 8 months. Daily tobacco, marijuana, and OTC analgesic user (500mg acetaminophen QID, 200mg ibuprofen QID). No prior history of GIB. Review of Systems General: Reports: 10 or more systems reviewed and unremarkable except in HPI and below Const: Denies: fever(s) Card: Denies: chest pain Resp: Denies: dyspnea GI: Reports: abdominal pain, nausea, vomiting, hematemesis and coffee ground emesis; Denies: dysphagia, hematochezia or melena : Denies: flank pain Neuro: Denies: headache(s) Medications/Allergies Home Medications Medication Instructions Recorded Confirmed Last Taken Type lansoprazole 30 mg capsule,delayed 30 mg PO DAILY #30 caps 12/09/23 01/28/24 Unknown Rx release (Prevacid) ondansetron 4 mg disintegrating 4 mg PO Q6H PRN nausea and 12/09/23 01/28/24 Unknown Rx tablet vomiting #14 tabs Allergies Allergy/AdvReac Type Severity Reaction Status Date / Time carbamazepine [From Tegretol] Allergy ALGY-Rash Verified 01/26/24 20:02 Current Medications Generic Name Dose Route Start Last Admin Trade Name Freq PRN Reason Stop Dose Admin Potassium Chloride 100 mls @ 25 mls/hr 01/28/24 13:45 01/28/24 14:10 K-Curtis IV 01/28/24 21:44 25 mls/hr Q4H GALILEA Administration PFSH Acute PFSH: Medical History (Updated 01/28/24 @ 15:38 by Harry Garber MD) Alcohol abuse Nicotine dependence, cigarettes, uncomplicated History of migraine intermittent, ~ once a month, Tylenol and quiet Anxiety paxil and prn xanax History of seizures no meds now. last ~7 yrs ago Surgical History No pertinent past surgical history Family History Mother Ovarian cancer Father Melanoma Social History Smoking and tobacco/nicotine status: current every day tobacco/nicotine user cigarettes [ Other cigarette details: 10/10 ppd] Alcohol intake: former Former alcohol use details: quit 8 months ago, former 5th day for years Substance/Drug Use: current Substance/Drug use frequency: few times a week Vitals/I&O/Wt Last Vital Signs Temp 98 F 01/28/24 12:43 Pulse 98 01/28/24 15:00 Resp 18 01/28/24 15:00 BP 118/98 01/28/24 15:00 Pulse Ox 97 01/28/24 15:00 O2 Del Method Room Air 01/28/24 15:00 Weight last 48 hrs Weight 140 lb Physical Exam Const: COMMON NORMALS: no acute distress, average body habitus, patient oriented x3, no limitations, alert and well nourished GENERAL APPEARANCE: cooperative, comfortable, well kempt and well developed; not in distress HENMT: COMMON NORMALS: normocephalic, atraumatic, external ears normal and Normal external nose present HEAD & SCALP: normocephalic and atraumatic FACE & SINUS: normal facial exam NOSE: Normal external nose present and Normal nares present EXTERNAL EAR: Yes external ears normal Eye: COMMON NORMALS: EOMs intact bilaterally and no scleral icterus GENERAL EYE: appearance normal, both eyes and all related structures ALIGNMENT: Yes alignment normal PERIORBITAL: periorbital findings normal EYELID: eyelids normal Neck/C-Spine: COMMON NORMALS: full ROM, supple and no JVD GENERAL: Yes normal visual inspection and Yes trachea midline Resp: COMMON NORMALS: normal respiratory effort, No retractions and No use of accessory muscles EFFORT & INSPECTION: Yes able to speak in complete sentences and Yes symmetric chest movement Cardio: COMMON NORMALS: no JVD, regular rate and regular rhythm RATE: regular rate RHYTHM: regular rhythm PERIPHERAL PULSES: radial pulses present GI: COMMON NORMALS: Soft to palpation and non-tender INSPECTION: Yes normal to inspection PALPATION: Yes Soft to palpation RECTAL EXAM: Yes deferred Extremity: COMMON NORMALS: normal to inspection and full ROM Neuro: COMMON NORMALS: patient oriented x3, moves all extremities and no focal motor deficits SENSORIUM/ORIENTATION: Yes alert Psych: COMMON NORMALS: mental status grossly normal, Normal thought process present, cooperative, normal affect, speech normal and activity/motor behavior normal APPEARANCE: Yes well kempt SPEECH: Yes normal speech MOOD & AFFECT: Yes euthymic mood THOUGHT PROCESS: Normal thought process present THOUGHT CONTENT: Yes Normal thought content present ATTENTION/CONCENTRATION: Yes attention grossly intact and Yes concentration grossly intact MEMORY/COGNITION: Yes memory grossly intact and Yes cognition grossly intact INSIGHT: Good insight present (Psych) JUDGEMENT: Good judgement present (Psych) Skin: COMMON NORMALS: no rashes or lesions noted GENERAL SKIN EXAM: no rashes or lesions noted Data 01/28/24 12:56 01/28/24 12:56 CT Abd/Pel: I personally reviewed and interpreted this imaging study as follows: My impression: No acute gastric or biliary findings Radiologist's impression: 1. Possible nonspecific infectious or inflammatory enteritis. Otherwise no evidence of acute abnormality in the abdomen or pelvis within limitations of a noncontrast exam. A&P Assessment and plan (1) Hematemesis: Qualifiers: Nausea presence: with nausea Qualified Code(s): K92.0 - Hematemesis (2) Intractable nausea and vomiting: (3) Cannabis hyperemesis syndrome concurrent with and due to cannabis abuse: Plan 43M with N/V and hemetemesis, Ddx includes Sophia-Johnson tear, gastric ulcer, or bleeding varices. Discussed each diagnosis, etiology, management, and prognosis with patient particularly in regards to use of EGD for diagnosis and treatment. Patient noted to have Tip-Blatchford Bleeding Score of 0 (Zero), indicating very low likelihood of needing endoscopy. Patient would like to forgo upper endoscopy at this time and receive empiric PPI with plans to cut back/stop NSAID use after discharge. -Through shared decision making, patient declines EGD at this time -Protonix 40mg PO Daily x30 days -Remainder of care per primary service, I remain available to reassess the patient as needed Coding Level of Care Code Acute Code for [facility] Fwd Diagnoses Hematemesis with nausea K92.0 Nausea presence: with nausea Intractable nausea and vomiting R11.2 Cannabis hyperemesis syndrome concurrent with and due to cannabis abuse F12.188
[2024-01-28] MEDS: pantoprazole 40 mg SDV IVP (16:22)
[2024-01-28] MEDS: sodium chloride 0.9% 1,000 ML 125 ML IV (16:23)
[2024-01-28 16:26] LABS: Thyroid Stimulating Hormone 0.28 uIU/mL (0.27-4.20)
[2024-01-28 16:30] LABS: Estmated Average Glucose 103; Hemoglobin A1C 5.2 % (4.0-6.0)
[2024-01-28] MEDS: calcium carbonate 500 mg Chew Tablet 1000 MG PO (21:06)
[2024-01-29] VITALS: BP 139/90; PULSE 59; RESP 16; TEMP 36.8; O2SAT 95
[2024-01-29] MEDS: potassium chloride premix 100 ML 15 MEQ IV (00:05)
[2024-01-29] MEDS: sodium chloride 0.9% 1,000 ML 125 ML IV ×2 (00:05→08:24)
--- NOTE | 2024-01-29 00:14 | PC.NURSE ---
Patient unable to tolerate IV potassium running at 25 ml/hr due to burning at IV site. Potassium running at 15 ml/hr and patient is able to tolerate this rate.
[2024-01-29 02:25] VITALS: PULSE 54
[2024-01-29 04:00] VITALS: BP 133/77; PULSE 61; RESP 16; TEMP 36.6; O2SAT 95
[2024-01-29] MEDS: ondansetron 2 mg/ML SDV 2 mL 4 MG IVP (04:45)
[2024-01-29 04:57] LABS: Basophils % 0.6 %; Eosinophils % 0.2 %; Hematocrit 44.9 % (37-53); Lymphocytes # 2.1 10^3/uL (0.8-4.8); Mean Corpuscular HGB Conc 36.7 g/dL (30-55); Mean Corpuscular Hemoglobin 33.7 pg (27-33); Mean Corpuscular Volume 91.6 fl (82-101); Mean Platelet Volume 11.1 fL (7.4-10.4); Monocytes # 0.6 10^3/uL (0.2-0.9); Neutrophils # 2.28 10^3/uL (1.8-7.7); Nucleated Red Blood Cells % 0 %; Platelet Count 141 10^3/cmm (157-399); Red Cell Distribution Width 11.4 % (12.1-15.1); White Blood Count 5.07 10^3/uL (3.29-11.43)
[2024-01-29 05:16] LABS: Anion Gap 12.5 (5-19); Blood Urea Nitrogen 14 mg/dL (6-20); Calcium 8.4 mg/dL (8.5-10.5); Carbon Dioxide 26 mmol/L (22-29); Chloride 100 mmol/L (98-107); Creatinine Clr Calc Pharmacy 161.7486; Glomerular Filtration Rate 148.5 mL/min (90-130); Glucose 88 mg/dL (65-115); Osmolality Calculated 280 mOsm/kg (285-295); Potassium 3.5 mmol/L (3.5-5.1); Sodium 135 mmol/L (136-145)
[2024-01-29 07:29] VITALS: BP 166/89; PULSE 55; RESP 20; TEMP 36.4; O2SAT 97
[2024-01-29] MEDS: pantoprazole 40 mg SDV IVP (08:24)
[2024-01-29] MEDS: metoclopramide 5 mg/mL SDV 2 mL IVP (08:24)
[2024-01-29 09:13] VITALS: BP 166/89
[2024-01-29] MEDS: cloNIDine 0.1 mg Tablet 0.100000000000000006 MG PO (09:13)
--- NOTE | 2024-01-29 09:54 | PC.CHAP ---
Pastoral Care Encounter/Spiritual Assessment Type of Contact [] Declined photocopying machine operator visit [] Patient/Family/Request visit [] Outpatient visit [] Follow-up visit [] Physician referral [] Code/Alert [x] Routine visit [] Staff referral [] Actively dying [x] Patient sleeping [] Family support [] [] Out of room [] Palliative care [] [] Receiving care in room [] Pre-surgical visit [] Trauma [] Long length of stay [] ICU visit [] Other: Relational/Emotional Strength [] Patient feels connected with others/family/visitors/staff [] Distress [] Loneliness/isolation [] Abandonment Spirituality of Patient [] Person of [place] [] Attends Adventist of their [place] [] Believes in Prayer [] Reads Bible or Sikh materials [] There are Spiritual issues to be addressed Yard Engineer Interventions [x] Prayer [] Active listening [] Non-anxious presence [] Spiritual/emotional support [] Crisis/trauma care [] Spiritual counseling [] Bereavement support [] Provided bereavement packet [x] Provided Bible/devotional materials [] Provided toy/stuffed animal, coloring book to patient or family member [] Provided Communion [] Anointing/[place] [] Salvation [] Completed spiritual assessment [] Other: Impact on Illness or Injury [] Angry [] Fearful [] Anxious [] Often cries [] Exhaustion [] Unable to work [] Unable to attend christianity [] Unable to walk/stand [] Unable to read [] Unable to drive [] Unable to eat/drink [] Unable to sleep [] Unable to be with family [] Patient intubated [] Other: Summary Time spent with patient
--- NOTE | 2024-01-29 10:28 | PM.DCS ---
Discharge Providers Date of Admission: 01/28/24 14:32 Date of Discharge: January 29, 2024 Attending Provider at Admission: Micheal Saenz MD Attending Provider at Discharge: Micheal Saenz MD Primary Care Provider: Emily Hannah-Suly Diagnoses at Discharge Discharge Diagnosis (1) Hematemesis: Status: Acute Qualifiers: Nausea presence: with nausea Qualified Code(s): K92.0 - Hematemesis (2) Intractable nausea and vomiting: Status: Acute (3) Cannabis hyperemesis syndrome concurrent with and due to cannabis abuse: Status: Acute (4) Encounter for smoking cessation counseling: Status: Acute Reason for Visit Reason for Visit: vomiting Hospital Course Hospital Course Jose G Pedraza is a 43 year old male With a past medical history of marijuana use, smoker, who presents [facility] due to abdominal pain, intractable nausea vomiting. Patient tells me that since Monday, has had epigastric abdominal discomfort discomfort, intractable nausea vomiting, denies any fevers, no chills, no lightheadedness, no dizziness, he has reported that 1 episode of vomiting did have blood, no clots, denies any fevers, no chills, he denies adamantly that he drinks alcohol, denies a history of alcohol associated varices, denies IV drug use, he has never had marijuana hyperemesis syndrome, denies a history of diabetes, no recent history of steroid use, no history of trauma, he tells me that his last use of marijuana was yesterday Patient was admitted to [facility] for marijuana hyperemesis syndrome, intractable nausea, vomiting, abdominal pain received IV fluid, nausea control, overall clinically improved. Will be discharged on strict instructions to completely abstain from marijuana use, continue for liquid diet for at least 24 hours and advance diet as tolerated to a GI soft diet For his hematemesis, no recurrent episodes during his hospitalization, general surgery was consulted patient declined EGD, discharged on Protonix 40 twice daily, instructions to monitor for hematemesis if recurrent episodes come back to the emergency room, sustained from NSAID use Had lengthy discussion about smoking cessation, risk of developing COPD, lung cancer, cardiovascular otology morbidity mortality discussed For his hypertension I discharged him on Norvasc 5 mg daily, clonidine as needed with parameters, Alcohol cessation counseling Physical Exam Const: COMMON NORMALS: no acute distress and patient oriented x3 Resp: COMMON NORMALS: normal respiratory effort, No retractions, No use of accessory muscles and clear to auscultation bilaterally AUSCULTATION: clear to auscultation bilaterally Cardio: COMMON NORMALS: regular rate, regular rhythm, S1 normal heart sound present and S2 normal heart sound present RATE: regular rate RHYTHM: regular rhythm HEART SOUNDS: S1 normal heart sound present and S2 normal heart sound present GI: COMMON NORMALS: Normal to inspection, nondistended, normoactive bowel sounds present and non-tender Extremity: COMMON NORMALS: no pedal edema Neuro: COMMON NORMALS: patient oriented x3 Psych: COMMON NORMALS: mental status grossly normal Discharge Data Studies Completed and Pending Completed Studies During Hospitalization Category Date Time Status CT abdomen pelvis wo con [id number] Stat Cat Scan 01/28/24 14:08 Completed Pending at discharge Category Date Time Status Basic Metabolic Panel AM LABS Lab 01/30/24 04:00 Ordered Basic Metabolic Panel AM LABS Lab 01/31/24 04:00 Ordered Complete Blood Count w/Auto AM LABS Lab 01/30/24 04:00 Ordered Complete Blood Count w/Auto AM LABS Lab 01/31/24 04:00 Ordered Gastricult Occult BLD Stat Lab 01/28/24 14:47 Ordered Radiology Impressions Abdomen/Pelvis CT 01/28/24 14:08 IMPRESSION: 1. Possible nonspecific infectious or inflammatory enteritis. Otherwise no evidence of acute abnormality in the abdomen or pelvis within limitations of a noncontrast exam. Laboratory Results WBC 5.07 10^3/uL (3.29-11.43) 01/29/24 04:18 RBC 4.90 10^6/uL (3.85-5.65) 01/29/24 04:18 Hgb 16.50 g/dL (11.27-16.99) 01/29/24 04:18 Hct 44.9 % (37-53) 01/29/24 04:18 MCV 91.6 fl (82-101) 01/29/24 04:18 MCH 33.7 pg (27-33) H 01/29/24 04:18 MCHC 36.7 g/dL (30-55) 01/29/24 04:18 RDW 11.4 % (12.1-15.1) L 01/29/24 04:18 Plt Count 141 10^3/cmm (157-399) L 01/29/24 04:18 MPV 11.1 fL (7.4-10.4) H 01/29/24 04:18 Neut % (Auto) 45.0 % 01/29/24 04:18 Lymph % (Auto) 42.0 % 01/29/24 04:18 [place] % (Auto) 12.0 % 01/29/24 04:18 Eos % (Auto) 0.2 % 01/29/24 04:18 Baso % (Auto) 0.6 % 01/29/24 04:18 Neut # (Auto) 2.28 10^3/uL (1.8-7.7) 01/29/24 04:18 Lymph # (Auto) 2.1 10^3/uL (0.8-4.8) 01/29/24 04:18 [place] # (Auto) 0.6 10^3/uL (0.2-0.9) 01/29/24 04:18 Eos # (Auto) 0.0 10^3/uL (0.0-0.8) 01/29/24 04:18 Baso # (Auto) 0.0 10^3/uL (0.0-0.1) 01/29/24 04:18 Nucleated RBC % (auto) 0 % 01/29/24 04:18 Nucleated RBCs # 0.0 /100WBC 01/29/24 04:18 PT 11.90 SECONDS (12.1-14.9) L 01/28/24 12:56 INR 0.86 (0.8-1.2) 01/28/24 12:56 Sodium 135 mmol/L (136-145) L 01/29/24 04:18 Potassium 3.5 mmol/L (3.5-5.1) 01/29/24 04:18 Chloride 100 mmol/L (98-107) 01/29/24 04:18 Carbon Dioxide 26 mmol/L (22-29) 01/29/24 04:18 Anion Gap 12.5 (5-19) 01/29/24 04:18 BUN 14 mg/dL (6-20) 01/29/24 04:18 Creatinine 0.6 mg/dL (0.7-1.2) L 01/29/24 04:18 GFR Calculation 148.5 mL/min (90-130) H 01/29/24 04:18 Glucose 88 mg/dL (65-115) 01/29/24 04:18 Estimat Average Glucose 103 01/28/24 12:56 Hemoglobin A1c 5.2 % (4.0-6.0) 01/28/24 12:56 Calculated Osmolality 280 mOsm/kg (285-295) L 01/29/24 04:18 Lactic Acid 1.3 mmol/L (0.5-2.2) 01/28/24 12:56 Calcium 8.4 mg/dL (8.5-10.5) L 01/29/24 04:18 Total Bilirubin 0.4 mg/dL (0.15-1.2) 01/28/24 12:56 AST 31 U/L (0-40) 01/28/24 12:56 ALT 29 U/L (0-41) 01/28/24 12:56 Alkaline Phosphatase 52 U/L (40-130) 01/28/24 12:56 C-Reactive Protein 7.7 mg/L (0.0-4.9) H 01/28/24 12:56 Total Protein 7.3 g/dL (6.6-8.7) 01/28/24 12:56 Albumin 4.1 g/dL (3.5-5.2) 01/28/24 12:56 Globulin 3.2 g/dL (1.3-4.6) 01/28/24 12:56 Lipase 168 U/L (13-60) H 01/28/24 12:56 Procalcitonin 0.08 ng/mL (0-0.5) 01/28/24 12:56 TSH 0.28 uIU/mL (0.27-4.20) 01/28/24 12:56 Urine Color Yellow (Yellow) 01/28/24 13:10 Urine Appearance Clear (CLEAR) 01/28/24 13:10 Urine pH 6 (5-7) 01/28/24 13:10 Ur Specific [place] 1.015 (1.005-1.030) 01/28/24 13:10 Urine Protein 1+ (Negative) H 01/28/24 13:10 Urine Glucose (UA) Norm (Normal) 01/28/24 13:10 Urine Ketones 2+ (Negative) H 01/28/24 13:10 Urine Blood Neg (Negative) 01/28/24 13:10 Urine Nitrate Negative (Negative) 01/28/24 13:10 Urine Bilirubin Neg (Negative) 01/28/24 13:10 Urine Urobilinogen Norm mg/dL (Negative) 01/28/24 13:10 Ur Leukocyte Esterase Negative (Negative) 01/28/24 13:10 Urine RBC None /hpf (0-2) 01/28/24 13:10 Urine WBC 0-4 /hpf (0-5) H 01/28/24 13:10 Ur Squamous Epith Cells 0-4 /hpf (0-5) H 01/28/24 13:10 Amorphous Sediment Not Reportable 01/28/24 13:10 Urine Bacteria 1+ /hpf (NONE) H 01/28/24 13:10 Urine Opiates Screen Negative ng/mL (Negative) 01/28/24 13:10 Ur Barbiturates Screen Negative ng/mL (Negative) 01/28/24 13:10 Ur Phencyclidine Scrn Negative ng/mL (Negative) 01/28/24 13:10 Ur Amphetamines Screen Negative ng/mL (Negative) 01/28/24 13:10 U Benzodiazepines Scrn Negative ng/mL (Negative) 01/28/24 13:10 Urine Cocaine Screen Negative ng/mL (Negative) 01/28/24 13:10 U Marijuana (THC) Screen Positive ng/mL (Negative) H 01/28/24 13:10 Ethyl Alcohol < 10 mg/dL (0-10) 01/28/24 12:56 Vitals Last Vital Signs Temp 97.5 F L 01/29/24 07:29 Pulse 55 L 01/29/24 07:29 Resp 20 H 01/29/24 07:29 BP 166/89 01/29/24 09:13 Pulse Ox 97 01/29/24 07:29 O2 Del Method Room Air 01/29/24 07:29 Discharge Plan Discharge Patient Disposition: Home Condition: Stable Prescriptions: New amlodipine [Norvasc] 5 mg tablet 5 mg PO DAILY 30 Days Qty: 30 0RF clonidine HCl 0.1 mg Tablet 0.1 mg PO DAILY PRN (Reason: for sbP>180 or dbp>100) 30 Days Qty: 30 0RF pantoprazole [Protonix] 40 mg tablet,delayed release (DR/EC) 40 mg PO BID 15 Days Qty: 30 0RF Continued lansoprazole [Prevacid] 30 mg capsule,delayed release(DR/EC) 30 mg PO DAILY Qty: 30 0RF ondansetron 4 mg tablet,disintegrating 4 mg PO Q6H PRN (Reason: nausea and vomiting) Qty: 14 0RF Discharge Orders: Discharge Order (Routine); Ordered 01/29/24 Ordered By: Micheal Saenz Referrals: Emily Hannah SOCIAL CONTACT WORKER-C [Primary Care Provider] - 1-3 days Discharge Diet: Full LIquid Discharge Activity: Resume usual activity Patient Instructions: Opioid Safety Activity Restrictions/Additional Instructions: - Please slowly advance your diet, stick to full liquids for at least another 24 hours ? Tomorrow you can advance your diet to GI soft diet ? If you have any recurrent hematemesis or bloody vomit please come back to emergency room use Protonix as prescribed ? Please abstain from any NSAID use ?please avoid alcohol use ? Please stop smoking ? Please abstain from any marijuana use, do your risk of marijuana hyperemesis syndrome ? For your blood pressure please check your blood pressure once daily ? If your systolic blood pressures greater than 180 or your diastolic blood pressures greater than 100 please use clonidine as prescribed ? I am discharging you on low-dose Norvasc 5 mg daily for your blood pressure ? Please follow-up with primary care provider as outpatient for a pressure check Discharge Attestations Time Spent in Discharge Care*: greater than 30 min Time Spent in Smoking Cessation: 3 to 10 minutes Status at Discharge: Cognitive status at discharge: cognitively intact, Behavioral status at discharge: cooperative, Quality Metrics Clinical Quality Measures [ No reported AMI, CVA or VTE this stay] Coding Level of Care Code 60612 Total time (in minutes) for Discharge: 45 Diagnoses Hematemesis with nausea K92.0 Nausea presence: with nausea Intractable nausea and vomiting R11.2 Cannabis hyperemesis syndrome concurrent with and due to cannabis abuse F12.188 Encounter for smoking cessation counseling Z71.6
[2024-01-29 11:15] VITALS: BP 130/70; PULSE 60; RESP 16; TEMP 36.9; O2SAT 95
--- NOTE | 2024-01-29 11:15 | PC.NURSE ---
Patient is A&Ox3. Respirations even and non-labored on room air. Patient denies any pain or nausea at this time. Reviewed patient discharge with patient at this time. Patient verbalized understanding of discharge instuctions including follow up appointments and how to take the new medications.
== END 2024-01-29 11:15 | disposition home or self-care (01) ==
LOC: ER 14:08 → MEDSURG 01-29 07:20
PROVIDERS: Admitting Provider Family Medicine; Emergency Provider Emergency Medicine; PCP Nurse Practitioner Family; Visit Provider Family Medicine
DX: K92.0 Hematemesis (principal); F12.188 Cannabis abuse with other cannabis-induced disorder; Z71.6 Tobacco abuse counseling; I10 Essential (primary) hypertension; Z71.41 Alcohol abuse counseling and surveillance of alcoholic; F17.210 Nicotine dependence, cigarettes, uncomplicated; F41.9 Anxiety disorder, unspecified
CPT/HCPCS: 36415; 74176; 80048; 80053; 80306; 80307; 81001; 82274; 83036; 83605; 83690; 84145; 84443; 85025; 85610; 86140; 94664; 96365; 96366; 96367; 96375; 99285; C9113; G0378; J2270; J2405; J2765; J3475; J3480; J7030

== ENCOUNTER 2024-05-02 11:08 | Emergency (ER) | payer BC, MEDICAID, SELFPAY ==
[2024-05-02 11:58] VITALS: BP 108/72; PULSE 117; RESP 18; TEMP 36.7; O2SAT 96; BMI 19.5
--- NOTE | 2024-05-02 12:02 | ECG_ITS ---
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 Measurements Intervals [place] Rate: 121 P: 81 GA: 103 QRS: 89 QRSD: 91 T: 67 QT: 359 QTc: 510 Interpretive Statements SINUS TACHYCARDIA WITH SHORT GA INTERVAL INCOMPLETE RIGHT BUNDLE BRANCH BLOCK [90+ ms QRS DURATION, TERMINAL R IN V1/V2, 40+ ms S IN I/aVL/V4/V5/V6] NONSPECIFIC ST & T-WAVE ABNORMALITY ABNORMAL RHYTHM ECG Compared to ECG 02/10/2021 20:36:58 T-wave abnormality now present Sinus rhythm no longer present ST (T wave) deviation no longer present Prolonged QT interval no longer present Electronically Signed On 05-03-2024 1:05:48 CDT by Nicole Mcfarland M.D. [id number]
[2024-05-02 12:45] LABS: Basophils % 0.2 %; Eosinophils % 0.1 %; Hematocrit 53.7 % (37-53); Lymphocytes % 16.2 %; Mean Corpuscular HGB Conc 36.5 g/dL (30-55); Mean Corpuscular Hemoglobin 33.4 pg (27-33); Mean Corpuscular Volume 91.5 fl (82-101); Mean Platelet Volume 11.8 fL (7.4-10.4); Monocytes # 1.2 10^3/uL (0.2-0.9); Monocytes % 9.9 %; Neutrophils # 9.04 10^3/uL (1.8-7.7); Neutrophils % 73.2 %; Nucleated Red Blood Cells % 0 %; Platelet Count 177 10^3/cmm (157-399); Red Blood Count 5.87 10^6/uL (3.85-5.65); Red Cell Distribution Width 11.6 % (12.1-15.1); White Blood Count 12.34 10^3/uL (3.29-11.43)
[2024-05-02 13:19] LABS: Alanine Aminotransferase 27 U/L (0-41); Albumin Level 4.7 g/dL (3.5-5.2); Alkaline Phosphatase 66 U/L (40-130); Aspartate Amino Transferase 23 U/L (0-40); Blood Urea Nitrogen 26 mg/dL (6-20); Calcium 9.8 mg/dL (8.5-10.5); Carbon Dioxide 28 mmol/L (22-29); Chloride 78 mmol/L (98-107); Creatinine Clr Calc Pharmacy 107.8324; Globulin 3.6 g/dL (1.3-4.6); Glucose 102 mg/dL (65-115); Lipase 18 U/L (13-60); Osmolality Calculated 269 mOsm/kg (285-295); Sodium 127 mmol/L (136-145); Total Protein 8.3 g/dL (6.6-8.7)
[2024-05-02] MEDS: sodium chloride 0.9% 1,000 ML 999 ML IV ×2 (13:51→14:24)
[2024-05-02] MEDS: diphenhydrAMINE 50 mg/mL SDV 1mL IVP (13:52)
[2024-05-02] MEDS: metoclopramide 5 mg/mL SDV 2 mL 10 MG IVP (13:52)
--- NOTE | 2024-05-02 13:52 | W.ED.NAVMDI ---
HPI - Nausea/Vomiting/Diarrhea General: Chief complaint: Nausea/Vomiting/Diarrhea Stated complaint: n,v since monday Time Seen by Provider: 05/02/24 13:37 Source: patient Mode of arrival: ambulatory Limitations: no limitations History of Present Illness: 43-year-old male states he been having nausea vomiting for the last 3 days states has not been able to tolerate any p.o. he states he tried smoking some marijuana and its made it worse. He had episodes of this in the past. He denies any fevers had some abdominal cramping denies any severe abdominal pain. Associated nausea: Yes Associated symtoms: Reports nausea; Denies chest pain, dysuria or headache(s) Review of Systems Const: Denies: fever(s), chills, body aches or change in appetite ENMT: Denies: throat pain or dental pain Card: Denies: chest pain Resp: Denies: dyspnea GI: Reports: nausea and vomiting; Denies: abdominal pain or diarrhea : Denies: dysuria Musc: Denies: neck pain or back pain Skin/Breast: Denies: rash Neuro: Denies: headache(s) PFSH ED PFSH: Medical History (Updated 05/02/24 @ 15:14 by Kailyn Reesndez MD) Alcohol abuse Nicotine dependence, cigarettes, uncomplicated History of migraine intermittent, ~ once a month, Tylenol and quiet Anxiety paxil and prn xanax History of seizures no meds now. last ~7 yrs ago Surgical History No pertinent past surgical history Family History Mother Ovarian cancer Father Melanoma Social History Smoking and tobacco/nicotine status: current every day tobacco/nicotine user cigarettes [ Other cigarette details: 10/10 ppd] Alcohol intake: former Former alcohol use details: quit 8 months ago, former 5th day for years Substance/Drug Use: current Substance/Drug use frequency: few times a week Physical Exam Const: COMMON NORMALS: no acute distress, patient oriented x3 and healthy appearing HENMT: COMMON NORMALS: normocephalic and atraumatic HEAD & SCALP: normocephalic and atraumatic Eye: COMMON NORMALS: conjunctivae normal CONJUNCTIVA: Yes conjunctivae normal Neck/C-Spine: COMMON NORMALS: full ROM and supple Chest: COMMONS NORMALS: normal inspection of the chest Resp: COMMON NORMALS: normal respiratory effort Cardio: COMMON NORMALS: regular rhythm and No murmurs present (Cardio) RATE: tachycardic RHYTHM: regular rhythm GI: COMMON NORMALS: Normal to inspection, nondistended, normoactive bowel sounds present, Soft to palpation, non-tender and no masses PALPATION: Yes Soft to palpation Extremity: COMMON NORMALS: normal to inspection and full ROM Neuro: COMMON NORMALS: patient oriented x3, moves all extremities and no focal motor deficits Psych: COMMON NORMALS: mental status grossly normal, Normal thought process present and cooperative THOUGHT PROCESS: Normal thought process present Skin: COMMON NORMALS: no rashes or lesions noted and no wounds GENERAL SKIN EXAM: no rashes or lesions noted Course Vital Signs: Vital signs: Vital Signs Temperature 98.1 F 05/02/24 11:58 Pulse Rate 73 05/02/24 15:00 Respiratory Rate 18 05/02/24 15:00 Blood Pressure 148/79 05/02/24 15:00 Pulse Oximetry 97 05/02/24 15:00 Oxygen Delivery Me thod Room Air 05/02/24 13:59 MDM - Nausea/Vomiting/Diarrhea Medical Decision Making Patient presents here with vomiting feels much improved here after fluids and Reglan he is able to tolerate p.o. did give him potassium replacement here we will prescribe Zofran for home abdominal exam is benign he stable for discharge follow-up with PCP return if worsening. Medical Records I reviewed the patient's medical records. Lab Data I reviewed the patient's lab results. 05/02/24 12:13 05/02/24 12:13 Laboratory Results WBC 12.34 10^3/uL (3.29-11.43) H 05/02/24 12:13 RBC 5.87 10^6/uL (3.85-5.65) H 05/02/24 12:13 Hgb 19.60 g/dL (11.27-16.99) H 05/02/24 12:13 Hct 53.7 % (37-53) H 05/02/24 12:13 MCV 91.5 fl (82-101) 05/02/24 12:13 MCH 33.4 pg (27-33) H 05/02/24 12:13 MCHC 36.5 g/dL (30-55) 05/02/24 12:13 RDW 11.6 % (12.1-15.1) L 05/02/24 12:13 Plt Count 177 10^3/cmm (157-399) 05/02/24 12:13 MPV 11.8 fL (7.4-10.4) H 05/02/24 12:13 Neut % (Auto) 73.2 % 05/02/24 12:13 Lymph % (Auto) 16.2 % 05/02/24 12:13 [place] % (Auto) 9.9 % 05/02/24 12:13 Eos % (Auto) 0.1 % 05/02/24 12:13 Baso % (Auto) 0.2 % 05/02/24 12:13 Neut # (Auto) 9.04 10^3/uL (1.8-7.7) H 05/02/24 12:13 Lymph # (Auto) 2.0 10^3/uL (0.8-4.8) 05/02/24 12:13 [place] # (Auto) 1.2 10^3/uL (0.2-0.9) H 05/02/24 12:13 Eos # (Auto) 0.0 10^3/uL (0.0-0.8) 05/02/24 12:13 Baso # (Auto) 0.0 10^3/uL (0.0-0.1) 05/02/24 12:13 Nucleated RBC % (auto) 0 % 05/02/24 12:13 Nucleated RBCs # 0.0 /100WBC 05/02/24 12:13 Sodium 127 mmol/L (136-145) L 05/02/24 12:13 Potassium 3.0 mmol/L (3.5-5.1) L 05/02/24 12:13 Chloride 78 mmol/L (98-107) L 05/02/24 12:13 Carbon Dioxide 28 mmol/L (22-29) 05/02/24 12:13 Anion Gap 24.0 (5-19) H 05/02/24 12:13 BUN 26 mg/dL (6-20) H 05/02/24 12:13 Creatinine 0.9 mg/dL (0.7-1.2) 05/02/24 12:13 GFR Calculation 93.0 mL/min (90-130) 05/02/24 12:13 Glucose 102 mg/dL (65-115) 05/02/24 12:13 Calculated Osmolality 269 mOsm/kg (285-295) L 05/02/24 12:13 Calcium 9.8 mg/dL (8.5-10.5) 05/02/24 12:13 Magnesium 2.4 mg/dL (1.7-2.3) H 05/02/24 12:13 Total Bilirubin 1.0 mg/dL (0.15-1.2) 05/02/24 12:13 AST 23 U/L (0-40) 05/02/24 12:13 ALT 27 U/L (0-41) 05/02/24 12:13 Alkaline Phosphatase 66 U/L (40-130) 05/02/24 12:13 Total Protein 8.3 g/dL (6.6-8.7) 05/02/24 12:13 Albumin 4.7 g/dL (3.5-5.2) 05/02/24 12:13 Globulin 3.6 g/dL (1.3-4.6) 05/02/24 12:13 Lipase 18 U/L (13-60) 05/02/24 12:13 All radiology interpretation(s) finalized by discharge EKG Data EKG 1: I personally reviewed and interpreted this EKG as follows: EKG interpretation date: 05/02/24 EKG interpretation time: 12:02 Interpretation: sinus tach hr [address] elevation qrs 91 qtc 431 Discharge Plan Discharge Patient Disposition: Home Clinical Impression: Vomiting Condition: Stable Prescriptions: New ondansetron 4 mg tablet,disintegrating 4 mg PO Q6H PRN (Reason: nausea and vomiting) Qty: 14 0RF No Action ondansetron 4 mg tablet,disintegrating 4 mg PO Q6H PRN (Reason: nausea and vomiting) Qty: 14 0RF clonidine HCl 0.1 mg tablet See Rx Instructions .ROUTE .COMPLEX PRN (Reason: BP) Rx Instructions: TAKE 1 TABLET BY MOUTH DAILY NEEDED FOR SYSTOLIC BLOOD PRESSURE GREATER THAN 180 OR DIASTOLIC BLOOD PRESSURE GREATER THAN 100. amlodipine 5 mg tablet 5 mg PO DAILY pantoprazole 40 mg tablet,delayed release (DR/EC) 40 mg PO BID potassium chloride 20 mEq tablet extended release 20 meq PO BID Discharge Orders: Discharge ED (Routine); Ordered 05/02/24 Ordered By: Kailyn Resendez Referrals: Emily Hannah FNP-C [Primary Care Provider] - Discharge Diet: Advance as tolerated Discharge Activity: Resume usual activity Patient Instructions: Acute Nausea and Vomiting (ED) Coding Level of Care Code ED [employer] Service Sales Representatives for [employer]
[2024-05-02 13:59] VITALS: BP 129/99; PULSE 105; RESP 13; O2SAT 97
--- NOTE | 2024-05-02 14:07 | PC.PHAR ---
PT VERIFIED MEDICATIONS STILL TAKING LAST FILL DATES ON THEM WERE 01/29/24. WHEN I ASKED LAST TAKEN 2 DAYS OR 1 WEEK?, HE COVERED HIS HEAD AND STOPPED TALKING.
[2024-05-02 14:20] LABS: Magnesium 2.4 mg/dL (1.7-2.3)
[2024-05-02] MEDS: potassium chloride ER 20 mEq Tablet 60 MEQ PO (14:24)
[2024-05-02 15:00] VITALS: BP 148/79; PULSE 73; RESP 18; O2SAT 97
[2024-05-02 16:17] VITALS: BP 148/79; PULSE 78; RESP 18; O2SAT 97
== END 2024-05-02 15:45 | disposition home or self-care (01) ==
PROVIDERS: Emergency Provider Emergency Medicine; PCP Nurse Practitioner Family
DX: R11.11 Vomiting without nausea (principal); R00.0 Tachycardia, unspecified; F17.210 Nicotine dependence, cigarettes, uncomplicated
CPT/HCPCS: 36415; 80053; 83690; 83735; 85025; 93005; 96361; 96374; 96375; 99284; J1200; J2765; J7030

== ENCOUNTER 2024-05-03 22:04 | Emergency (ER) | payer BC, MEDICAID, SELFPAY ==
[2024-05-03 22:09] VITALS: BP 112/80; PULSE 105; RESP 18; TEMP 36.8; O2SAT 98
[2024-05-03 22:12] VITALS: BP 121/87; PULSE 85; RESP 16; O2SAT 97
--- NOTE | 2024-05-03 22:21 | ED_ITS ---
HPI - Nausea/Vomiting/Diarrhea 2 General: Chief complaint: Nausea/Vomiting/Diarrhea Stated complaint: weak low n/v Time Seen by Provider: 05/03/24 22:16 History of Present Illness: 43-year-old male with a history of nause a and vomiting in the past. He presents with continued nausea and vomiting. He was seen here yesterday for the same. He was given IV fluid and potassium as well as sent home with Zofran. He continues to vomit at home. No fever. PFSH ED 2 PFSH: Medical History (Updated 05/04/24 @ 00:36 by Vince Taylor DO) Alcohol abuse Nicotine dependence, cigarettes, uncomplicated History of migraine intermittent, ~ once a month, Tylenol and quiet Anxiety paxil and prn xanax History of seizures no meds now. last ~7 yrs ago Surgical History No pertinent past surgical history Family History Mother Ovarian cancer Father Melanoma Social History Smoking and tobacco/nicotine status: current every day tobacco/nicotine user cigarettes [ Other cigarette details: 10/10 ppd] Alcohol intake: former Former alcohol use details: quit 8 months ago, former 5th day for years Substance/Drug Use: current Substance/Drug use frequency: few times a week Physical Exam 2 Const: GENERAL APPEARANCE: cooperative and ill appearing (Mildly); not frail appearing HENMT: COMMON NORMALS: normocephalic, atraumatic and Normal external nose present HEAD & SCALP: normocephalic and atraumatic FACE & SINUS: normal facial exam and face symmetric NOSE: Normal external nose present Eye: COMMON NORMALS: Equal, round and reactive pupils present and EOMs intact bilaterally PUPIL: Yes Equal, round and reactive pupils present Neck/C-Spine: GENERAL: Yes trachea midline Chest: CHEST: Yes Symmetrical chest wall rise Resp: COMMON NORMALS: normal respiratory effort, No retractions, No use of accessory muscles and clear to auscultation bilaterally AUSCULTATION: clear to auscultation bilaterally Cardio: COMMON NORMALS: regular rate and regular rhythm RATE: regular rate RHYTHM: regular rhythm GI: COMMON NORMALS: Normal to inspection, nondistended, normoactive bowel sounds present Extremity: COMMON NORMALS: no pedal edema Neuro: TIP COMA SCALE: document GCS findings Tip coma scale eye opening: Spontaneous Tip coma scale verbal response: Orientated [place] coma scale motor response: Obey commands [place] coma scale total score: 15 S ENSORY EXAM: Yes extremities (intact) Psych: COMMON NORMALS: speech normal SPEECH: Yes normal speech Skin: COMMON NORMALS: no rashes or lesions noted GENERAL SKIN EXAM: no rashes or lesions noted Course 2 Vital Signs: Vital signs: Vital Signs Temperature 98.3 F 05/03/24 22:09 Pulse Rate 104 H 05/03/24 22:55 Respiratory Rate 18 05/03/24 22:55 Blood Pressure 121/87 05/03/24 22:55 Pulse Oximetry 98 05/03/24 22:55 Oxygen Delivery Me thod Room Air 05/03/24 22:55 MDM - Nausea/Vomiting/Diarrhea Medical Decision Making Patient's white blood cell count is 14, but CRP is 3. Hemoglobin is down to 17.7 from 19 yesterday. Potassium is up to 3.3 from yesterday. He is given 40 mill equivalents of potassium orally in liquid form. He has received IV fluid. He is feeling improved. He notes that he is anxious, and would like to go home if possible. His urine drug screen is positive for marijuana. With no evidence of acute abdominal pathology on exam, or laboratory findings, he will be allowed discharge. Differential includes cyclic vomiting. Much less likely would be pancreatitis, biliary colic, bowel obstruction, etc. He does not have clinical signs of these. He will be discharged on Thorazine, hopefully to help him with nausea. He will take it scheduled for the next 48 hours 3 times daily, and then then as needed. Zofran for breakthrough nausea. Return for problems. Lab Data 05/03/24 22:39 05/03/24 22:39 Laboratory Results WBC 14.18 10^3/uL (3.29-11.43) H 05/03/24 22:39 RBC 5.20 10^6/uL (3.85-5.65) 05/03/24 22:39 Hgb 17.70 g/dL (11.27-16.99) H 05/03/24 22:39 Hct 47.9 % (37-53) 05/03/24 22:39 MCV 92.1 fl (82-101) 05/03/24 22:39 MCH 34.0 pg (27-33) H 05/03/24 22:39 MCHC 37.0 g/dL (30-55) 05/03/24 22:39 RDW 11.4 % (12.1-15.1) L 05/03/24 22:39 Plt Count 187 10^3/cmm (157-399) 05/03/24 22:39 MPV 10.9 fL (7.4-10.4) H 05/03/24 22:39 Neut % (Auto) 77.3 % 05/03/24 22:39 Lymph % (Auto) 13.3 % 05/03/24 22:39 Coleman % (Auto) 8.5 % 05/03/24 22:39 Eos % (Auto) 0.1 % 05/03/24 22:39 Baso % (Auto) 0.4 % 05/03/24 22:39 Neut # (Auto) 10.97 10^3/uL (1.8-7.7) H 05/03/24 22:39 Lymph # (Auto) 1.9 10^3/uL (0.8-4.8) 05/03/24 22:39 Coleman # (Auto) 1.2 10^3/uL (0.2-0.9) H 05/03/24 22:39 Eos # (Auto) 0.0 10^3/uL (0.0-0.8) 05/03/24 22:39 Baso # (Auto) 0.1 10^3/uL (0.0-0.1) 05/03/24 22:39 Nucleated RBC % (auto) 0 % 05/03/24:39 Nucleated RBCs # 0.0 /100WBC 05/03/24 22:39 Sodium 133 mmol/L (136-145) L 05/03/24 22:39 Potassium 3.3 mmol/L (3.5-5.1) L 05/03/24 22:39 Chloride 91 mmol/L (98-107) L 05/03/24 22:39 Carbon Dioxide 27 mmol/L (22-29) 05/03/24 22:39 Anion Gap 18.3 (5-19) 05/03/24 22:39 BUN 20 mg/dL (6-20) 05/03/24 22:39 Creatinine 0.8 mg/dL (0.7-1.2) 05/03/24 22:39 GFR Calculation 106.5 mL/min (90-130) 05/03/24 22:39 Glucose 107 mg/dL (65-115) 05/03/24 22:39 Calculated Osmolality 279 mOsm/kg (285-295) L 05/03/24 22:39 Calcium 9.2 mg/dL (8.5-10.5) 05/03/24 22:39 Total Bilirubin 1.2 mg/dL (0.15-1.2) 05/03/24 22:39 AST 24 U/L (0-40) 05/03/24 22:39 ALT 22 U/L (0-41) 05/03/24 22:39 Alkaline Phosphatase 56 U/L (40-130) 05/03/24 22:39 Creatine Kinase 244 U/L (39-308) 05/03/24 22:39 C-Reactive Protein 3.0 mg/L (0.0-4.9) 05/03/24 22:39 Total Protein 7.3 g/dL (6.6-8.7) 05/03/24 22:39 Albumin 4.5 g/dL (3.5-5.2) 05/03/24 22:39 Globulin 2.8 g/dL (1.3-4.6) 05/03/24 22:39 Lipase 55 U/L (13-60) 05/03/24 22:39 Urine Color Dark yellow (Yellow) A 05/04/24 00:05 Urine Appearance Clear (CLEAR) 05/04/24 00:05 Urine pH 6.5 (5-7) 05/04/24 00:05 Ur Specific [place] 1.015 (1.005-1.030) 05/04/24 00:05 Urine Protein Trace (Negative) 05/04/24 00:05 Urine Glucose (UA) Norm (Normal) 05/04/24 00:05 Urine Ketones 1+ (Negative) H 05/04/24 00:05 Urine Blood 2+ (Negative) H 05/04/24 00:05 Urine Nitrate Negative (Negative) 05/04/24 00:05 Urine Bilirubin Neg (Negative) 05/04/24 00:05 Urine Urobilinogen 1 mg/dL (Negative) H 05/04/24 00:05 Ur Leukocyte Esterase Trace (Negative) H 05/04/24 00:05 Urine RBC 5-10 /hpf (0-2) H 05/04/24 00:05 Urine WBC 5-10 /hpf (0-5) H 05/04/24 00:05 Ur Squamous Epith Cells 0-4 /hpf (0-5) H 05/04/24 00:05 Amorphous Sediment Trace /hpf 05/04/24 00:05 Urine Bacteria Trace /hpf (NONE) 05/04/24 00:05 Hyaline Casts 0-4 /lpf H 05/04/24 00:05 Urine Mucus Trace /hpf 05/04/24 00:05 Urine Opiates Screen Negative ng/mL (Negative) 05/04/24 00:05 Ur Barbiturates Screen Negative ng/mL (Negative) 05/04/24 00:05 Ur Phencyclidine Scrn Negative ng/mL (Negative) 05/04/24 00:05 Ur Amphetamines Screen Negative ng/mL (Negative) 05/04/24 00:05 U Benzodiazepines Scrn Negative ng/mL (Negative) 05/04/24 00:05 Urine Cocaine Screen Negative ng/mL (Negative) 05/04/24 00:05 U Marijuana (THC) Screen Positive ng/mL (Negative) H 05/04/24 00:05 No radiology studies performed this visit Discharge Plan Discharge Patient Disposition: Home Clinical Impression: Vomiting Condition: Stable Prescriptions: New chlorpromazine 25 mg tablet 25 mg PO TID Qty: 14 0RF No Action ondansetron 4 mg tablet,disintegrating 4 mg PO Q6H PRN (Reason: nausea and vomiting) Qty: 14 0RF clonidine HCl 0.1 mg tablet See Rx Instructions .ROUTE .COMPLEX PRN (Reason: BP) Rx Instructions: TAKE 1 TABLET BY MOUTH DAILY NEEDED FOR SYSTOLIC BLOOD PRESSURE GREATER THAN 180 OR DIASTOLIC BLOOD PRESSURE GREATER THAN 100. amlodipine 5 mg tablet 5 mg PO DAILY pantoprazole 40 mg tablet,delayed release (DR/EC) 40 mg PO BID potassium chloride 20 mEq tablet extended release 20 meq PO BID ondansetron 4 mg tablet,disintegrating 4 mg PO Q6H PRN (Reason: nausea and vomiting) Qty: 14 0RF Discharge Orders: Discharge ED (Routine); Ordered 05/04/24 Ordered By: Vince Taylor Referrals: Emily Hannah, [employer]-C [Primary Care Provider] - 1-3 days Patient Instructions: Opioid Safety, Pain Management, Vomiting - Adult Activity Restrictions/Additional Instructions: Take chlorpromazine scheduled 3 times daily whether you feel nauseated or not for the next 48 hours, then as needed following that for nausea. You may take the Zofran you were prescribed yesterday for additional nausea control. Clear liquid diet for 48 hours, add back in solids after that if no vomiting. Return for problems. Coding Level of Care Code ED Healthcare Administration Intern for [facility]
[2024-05-03 22:45] LABS: Basophils # 0.1 10^3/uL (0.0-0.1); Basophils % 0.4 %; Eosinophils % 0.1 %; Hematocrit 47.9 % (37-53); Lymphocytes # 1.9 10^3/uL (0.8-4.8); Lymphocytes % 13.3 %; Mean Corpuscular Volume 92.1 fl (82-101); Mean Platelet Volume 10.9 fL (7.4-10.4); Monocytes # 1.2 10^3/uL (0.2-0.9); Monocytes % 8.5 %; Neutrophils # 10.97 10^3/uL (1.8-7.7); Neutrophils % 77.3 %; Nucleated Red Blood Cells % 0 %; Platelet Count 187 10^3/cmm (157-399); Red Cell Distribution Width 11.4 % (12.1-15.1); White Blood Count 14.18 10^3/uL (3.29-11.43)
[2024-05-03] MEDS: metoclopramide 5 mg/mL SDV 2 mL 10 MG IVP (22:45)
[2024-05-03] MEDS: ondansetron 2 mg/ML SDV 2 mL 4 MG IVP (22:45)
[2024-05-03] MEDS: lidocaine 2% viscous 15 ML, aluminum-mag hydrox-simethicon 30 ML, sucralfate oral liq 1 GM PO (22:46)
[2024-05-03] MEDS: sodium chloride 0.9% 1,000 ML 999 ML IV (22:51)
[2024-05-03 22:55] VITALS: BP 121/87; PULSE 104; RESP 18; O2SAT 98
[2024-05-03 23:01] LABS: Alanine Aminotransferase 22 U/L (0-41); Albumin Level 4.5 g/dL (3.5-5.2); Alkaline Phosphatase 56 U/L (40-130); Blood Urea Nitrogen 20 mg/dL (6-20); Calcium 9.2 mg/dL (8.5-10.5); Carbon Dioxide 27 mmol/L (22-29); Chloride 91 mmol/L (98-107); Creatine Phosphokinase 244 U/L (39-308); Creatinine Clr Calc Pharmacy 101.3495; Globulin 2.8 g/dL (1.3-4.6); Glomerular Filtration Rate 106.5 mL/min (90-130); Glucose 107 mg/dL (65-115); Lipase 55 U/L (13-60); Osmolality Calculated 279 mOsm/kg (285-295); Sodium 133 mmol/L (136-145); Total Bilirubin 1.2 mg/dL (0.15-1.2); Total Protein 7.3 g/dL (6.6-8.7)
[2024-05-03 23:08] LABS: Anion Gap 18.3 (5-19); Aspartate Amino Transferase 24 U/L (0-40); Potassium 3.3 mmol/L (3.5-5.1)
[2024-05-04] MEDS: potassium chloride oral liq 20 mEq/15 mL UDC 40 MEQ PO (00:17)
[2024-05-04 00:31] LABS: Amphetamines Screen Urine Negative (Negative); Barbiturates Screen Urine Negative (Negative); Benzodiazepines Screen Urine Negative (Negative); Cocaine Screen Urine Negative (Negative); Opiate Screen Urine Negative (Negative); PCP Screen Urine Negative (Negative); THC Screen Urine Positive (Negative)
[2024-05-04 00:32] LABS: Specific Gravity, Urine 1.015 (1.005-1.030); Urine Color Dark Yellow (Yellow); pH Urine 6.5 (5-7)
[2024-05-04 00:33] LABS: Add Urine Microscopic? YES; Amorphous Sediment Urine TRACE /hpf; Bacteria Urine TRACE /hpf; Bilirubin Urine Neg (Negative); Blood Urine 2+ (Negative); Glucose Urine UA Norm (Normal); Hyaline Casts Urine 0-4 /lpf; Ketones Urine 1+ (Negative); Leukocyte Esterase Urine Trace (Negative); Mucus Urine TRACE /hpf; Nitrate Urine Negative (Negative); Protein Urine Trace (Negative); Squamous Epithelial Cell Urine 0-4 /hpf (0-5); Urine Appearance Clear (CLEAR); Urobilinogen Urine 1 mg/dL (Negative)
[2024-05-04] MEDS: sodium chloride 0.9% 1,000 ML 999 ML IV (01:03)
[2024-05-04] MEDS: chlorPROMazine 25 mg Tablet PO (01:03)
[2024-05-04 01:05] VITALS: BP 121/87; PULSE 104; RESP 18; TEMP 36.8; O2SAT 98
== END 2024-05-04 01:07 | disposition home or self-care (01) ==
PROVIDERS: Emergency Provider Emergency Medicine; PCP Nurse Practitioner Family
DX: R11.11 Vomiting without nausea (principal); F17.210 Nicotine dependence, cigarettes, uncomplicated
CPT/HCPCS: 36415; 80053; 80306; 81001; 82550; 83690; 85025; 86140; 96361; 96374; 96375; 99284; J2405; J2765; J7030; Q0161

== ENCOUNTER → 2024-08-13 14:54 | Outpatient (BNVA) | payer BC, MEDICAID, SELFPAY | PROVIDERS: PCP Nurse Practitioner Family; Visit Provider Nurse Practitioner Family | DX: S99.911A Unspecified injury of right ankle, initial encounter (principal); M25.571 Pain in right ankle and joints of right foot; X58.XXXA Exposure to other specified factors, initial encounter; Z98.890 Other specified postprocedural states; Z96.698 Presence of other orthopedic joint implants | CPT/HCPCS: 73610 ==

== ENCOUNTER 2024-10-15 18:45 | Emergency (ER) | payer OTHER, BC, MEDICAID, SELFPAY ==
[2024-10-15 19:26] VITALS: BP 92/61; PULSE 68; TEMP 36.7; O2SAT 99; BMI 18.1
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
== END 2024-10-15 21:12 | disposition home or self-care (01) ==
PROVIDERS: Emergency Provider Physician Assistant; PCP Nurse Practitioner Family
DX: S90.01XA Contusion of right ankle, initial encounter (principal); V87.7XXA Person injured in collision between other specified motor vehicles (traffic), initial encounter; F17.210 Nicotine dependence, cigarettes, uncomplicated
CPT/HCPCS: 73610; 73630; 99283